=== PATIENT | female | born 1945 | race Caucasian/White ===

== ENCOUNTER 2017-05-26 10:06 | Inpatient (IN) | payer MEDICARE, OTHER ==
[2017-05-26] MEDS ORDERED: Morphine INJ* 4 MG/ML 1 ML CARPUJECT IM ONE (10:37)
--- NOTE | 2017-05-26 11:41 | RAD ---
Indication: Right femur injury. 2 views of the right femur are reviewed. There is a nondisplaced fracture through the distal shaft of the right femur. This may represent a stress riser fracture. IMPRESSION: Nondisplaced fracture of the distal diaphysis of the femur.
--- NOTE | 2017-05-26 11:47 | RAD ---
Indication: Pelvic injury. Single view of the pelvis demonstrates pelvic ring to be intact. Right femoral head and neck replacement is noted. Pelvic ring is grossly intact. IMPRESSION: Pelvic ring is grossly intact.
--- NOTE | 2017-05-26 11:50 | RAD ---
Indication: Trauma, chest injury Single view of the chest and shape no mediastinal shift. Heart is of normal size and configuration. Hyperinflated lung dillard are noted. No alveolar consolidation is noted. IMPRESSION: Hyperinflated lung dillard with chronic interstitial disease.
--- NOTE | 2017-05-26 13:02 | ED ---
Luis Manuel Bell Gabriel, scribed for Kermit Zhang MD on 05/26/17 at 1031 . Lower Extremity - HPI Summary HPI Summary: This patient is a 71 year old F [facility]IBA to [facility] with a chief complaint of right leg pain since 05/24/17. The patient rates the pain 4/10 in severity. Symptoms aggravated by movement of the RLE. Patient reports multiple bed sores. Patient denies left leg pain. Patient reports that she slipped off the side of the bed 2 days ago and hurt her knee. She has been non weight bearing on this side since december due to a broken hip. She did have it repaired but there was no sign of healing after so she had another hip surgery three weeks ago and still is not weight bearing. Patient has a history of chronic osteoporosis and an excluded superficial femoral artery. - History of Current Complaint Chief Complaint: EDExtremityLower Stated Complaint: WEAKNESS Time Seen by Provider: 05/26/17 10:24 Hx Obtained From: Patient Mechanism Of Injury: Fall From Height Of: - bed Onset of Pain: Immediate Onset/Duration: Still Present - 2 Severity Initially: Mild Severity Currently: Mild Pain Intensity: 4 Pain Scale Used: 0-10 Numeric Timing: Constant Associated Signs And Symptoms: Positive: Negative - right leg pain, Other - multiple bed sores Able to Bear Weight: No - Allergies/Home Medications Allergies/Adverse Reactions: Allergies Allergy/AdvReac Type Severity Reaction Status Date / Time No Known Allergies Allergy Verified 05/26/17 10:20 PMH/Surg Hx/FS Hx/Imm Hx Previously Healthy: No Cardiovascular History: Reports: Hx Hypertension Respiratory History: Reports: Hx Chronic Obstructive Pulmonary Disease (COPD) Psychiatric History: Reports: Hx Depression - Cancer History Cancer Type, Location and Year: Hip repair. 01/13 and 05/15 Infectious Disease History: Yes Infectious Disease History: Denies: Traveled Outside the [place] in Last 30 Days - Family History Known Family History: Positive: Hypertension - Social History Lives: [place] Alcohol Use: None Hx Substance Use: No Substance Use Type: Reports: None Hx Tobacco Use: Yes Smoking Status (MU): Former Smoker Type: Cigarettes Review of Systems Positive: Other - bed sores Positive: Other - RLE pain All Other Systems Reviewed And Are Negative: Yes Physical Exam - Summary Physical Exam Summary: Appearance: Well appearing, no pain distress Skin: warm, dry, reflects adequate perfusion Head/face: normal Eyes: EOMI, ISAIAH ENT: normal Neck: supple, non-tender Respiratory: Course breath sounds that clear with cough Cardiovascular: RRR, pulses symmetrical Abdomen: non-tender, soft Bowel: present Extremities: Right small toe is ecchymotic and there is a wound on the malleolus , Pain and effusion at the right knee with limited ability to extend. It is resting in a contracted position, there is no pain at the femur. Multiple small pressure sores on the lateral side of the right foot and small toe Right leg is warm, there is some mild redness and present dorsalis pedis pulses. Musculoskeletal: normal, strength/ROM intact Neuro: normal, sensory motor intact, A&Ox3 An EKG reveals Triage Information Reviewed: Yes Vital Signs On Initial Exam: Initial Vitals Temp Pulse Resp BP Pulse Ox 98.7 F 93 17 168/73 93 05/26/17 10:16 05/26/17 10:16 05/26/17 10:16 05/26/17 10:16 05/26/17 10:16 Vital Signs Reviewed: Yes Diagnostics - Vital Signs Vital Signs Temp Pulse Resp BP Pulse Ox 05/26/17 10:16 98.7 F 93 17 168/73 93 - Laboratory Lab Statement: Any lab studies that have been ordered have been reviewed, and results considered in the medical decision making process. - Radiology CXR Radiology Interpretation Completed By: Radiologist - Hyperinflated lung dillard with chronic interstitial disease. ED physician has reviewed this radiology report. Pelvis xray Radiology Interpretation Completed By: Radiologist - Pelvic ring is grossly intact. ED physician has reviewed this radiology report. Femus Xray Radiology Interpretation Completed By: Radiologist - Nondisplaced fracture of the distal diaphysis of the femur. ED physician has reviewed this radiology report. Re-Evaluation - Re-Evaluation First Eval Change: Improved - with pain meds. Lower Extremity Course/Dx - Course Course Of Treatment: Pt with chronic arterial insufficiency RLE and complicated post op course from hip fx (mult surgeries). Now with femur fracture from min trauma. Leg is warm but with (chronically) diminished pulses. Pressure wounds on the foot and ankle. Tx for pain. D/W ortho will accept here and pt admitted thru hospitalist. - Diagnoses Provider Diagnoses: Nondisplaced fracture of right femur, Decubitus ulcer of foot, Peripheral arterial occlusive disease - Physician Notifications Discussed Care Of Patient With: Dusty Parr Time Discussed With Above Provider: 11:52 Instructed by Provider To: Other - We discussed patient care with Dr. Nolasco and he said he will treat the patient non operatively. - Critical Care Time Critical Care Time: 30-74 min - CCT is EXCLUSIVE of separately billable procedures Discharge - Discharge Plan Condition: Fair Disposition: ADMITTED TO [facility] Referrals: Mary Carmen Yates MD [Primary Care Provider] - Consult Consult: 1237 We discussed patient care with Dr. Menard, Hospitalist and accepted the patient for admittance. The documentation as recorded by the Luis Manuel pena Gabriel accurately reflects the service I personally performed and the decisions made by me, Kermit Zhang MD.
[2017-05-26] MEDS ORDERED: Morphine INJ* 2 MG/ML 1 ML SYRINGE (TWO MG - NEW SYRINGE VERSION) IV PRN (14:25)
[2017-05-26] MEDS ORDERED: Albuterol/Ipratropium NEB.SOL* Albuterol 2.5 MG/Ipratropium 0.5 MG 3 ML INH PRN (14:25)
[2017-05-26 14:31] LABS: ABS Basophils 0 10^3/ul (0-0.2); ABS Eosinophils 0 10^3/ul (0-0.6); ABS Lymphocytes 1.4 10^3/ul (1.0-4.8); ABS Monocytes 1.1 10^3/ul (0-0.8); ABS Neutrophils 12.2 10^3/ul (1.5-7.7); ABS Nucleated RBC 0 10^3/ul; Eosinophil % 0.2 % (0-6); Hematocrit 36 % (35-47); Hemoglobin 11.5 g/dl (12.0-16.0); Lymphocyte % 9.4 % (25-47); Mean Corpuscular HGB Conc 32 g/dl (31-36); Mean Corpuscular Hemoglobin 28 pg (27-31); Mean Corpuscular Volume 88 fL (80-97); Mean Platelet Volume 8 um3 (7.4-10.4); Nucleated Red Blood Cells % 0; Platelet Count 466 10^3/ul (150-450); Red Blood Count 4.07 10^6/ul (4.0-5.4); Red Cell Distribution Width 16 % (10.5-15); White Blood Count 14.8 10^3/ul (3.5-10.8)
[2017-05-26] MEDS ORDERED: traMADol TAB* 50 MG PO SCH (15:00)
[2017-05-26] MEDS ORDERED: Ondansetron INJ* 2 MG/ML VIAL IV SCH (15:00)
[2017-05-26] MEDS ORDERED: Ondansetron INJ* 2 MG/ML VIAL IV PRN (16:19)
[2017-05-26 16:31] LABS: INR 0.98 (0.77-1.02)
--- NOTE | 2017-05-26 16:50 | RAD ---
INDICATION: Right leg swelling. COMPARISON: There are no prior studies available for comparison. TECHNIQUE: Multiple real-time, color flow and Doppler tracings of the right lower extremity were obtained. FINDINGS: The common femoral, femoral, profunda femoral and popliteal veins all demonstrate normal compressibility, augmentation with compression and phasic response with respiration. The posterior tibial and peroneal veins demonstrate normal compressibility and augmentation with compression. IMPRESSION: NO EVIDENCE FOR DEEP VENOUS THROMBOSIS.
[2017-05-26] MEDS: Morphine INJ* 2 MG/ML 1 ML SYRINGE (TWO MG - NEW SYRINGE VERSION) IV PRN ×2 (17:24→21:11)
[2017-05-26] MEDS: traMADol TAB* 50 MG PO PRN (17:43)
[2017-05-26] MEDS: Docusate CAP* 100 MG PO SCH (21:24)
[2017-05-26] MEDS: Ferrous Sulfate TAB* 325 MG PO SCH (21:24)
[2017-05-26] MEDS ORDERED: Heparin VIAL(*) 5000 UNITS/ML VIAL (FIVE THOUSAND) SUBCUT SCH (22:00)
--- NOTE | 2017-05-26 22:58 | CONS ---
CONSULTATION REPORT: DATE OF CONSULT: 05/26/17 PROVIDER: Dr. Dusty Parr. HISTORY OF PRESENT ILLNESS: Yarelis Agee is a 71-year-old female who arrived by ambulance to [facility] [place] [facility] with a chief complaint of right leg pain since falling out of bed 05/24/17. At the time of falling out of bed, her pain was not severe and did not become severe until today when she was transitioning to a seated position and experienced severe right leg pain. Movement aggravates the symptoms and lying still relieve the symptoms. At the time of her fall, she states that the bed is more narrow than the bed that she has used to. She did not experience loss of consciousness, chest pain, shortness of breath, confusion , lightheadedness, and she denies any loss of consciousness or any other injury at the time of fall. At this time, her pain is rated as 8/10 and is localized to the right upper leg without radiation. She denies any numbness or tingling down the right leg. The patient has been nonweightbearing on her right lower extremity since December 2016 due to a fall and subsequent hip fracture. She was treated first for this fracture at a hospital in [place]. She reportedly experienced hardware failure and poor healing. She therefore had a revision by Dr. Escobar out of [facility] 3 weeks ago. She has been nonweightbearing since, but the patient reports that her medical team does feel that she is healing better at this time. She is originally from [place], but due to complications of her first surgery, she has moved down to [facility] to seek out medical treatment in this town as well as to be closure to her son, who works at [employer]. The patient does have a chronic history of osteoporosis. She has no history of heart attack or stroke. She has no history of DVT or PE. She does have a history of multiple bed sores. PAST MEDICAL HISTORY: Hypertension, COPD, depression. PAST SURGICAL HISTORY: Right hip surgery in December and roughly 3 weeks ago and in 2017. ALLERGIES: No known drug allergies. SOCIAL HISTORY: The patient lives at [facility]. She does not use alcohol or drugs. She is a former smoker. REVIEW OF SYSTEMS: General: Denies fever or chills. HEENT: Denies headache, acute hearing loss or changes in vision. Cardiac: Denies chest pain or irregular beats. The patient does not have a refrigeration engineer. Respiratory: Denies shortness of breath. Has a history of COPD. Has a cough with onset today. Does not have a child center assistant. GI: Denies nausea, vomiting, diarrhea. : Denies dysuria. Musculoskeletal: Confirms right lower extremity pain. Confirms 2 previous hip surgeries on the side. Neuro: Denies numbness or tingling down the right lower extremity. Denies headache. Denies history of stroke. Skin: Confirms pressure ulcers. The patient is unsure how long she had these. Denies any acute open lesion or bruising from her fall. Hematology : Denies easy bruising or bleeding. PHYSICAL EXAM: Vitals: Temperature 98.7, pulse 104, respiratory rate 18, oxygen saturation 98, and blood pressure 152/84. Appearance: Well appearing, in no acute distress, calm and cooperative. HEENT: Normocephalic, atraumatic. Eyes: Extraocular movements are intact. Hearing is grossly normal to spoken conversation. Respiratory: Coarse lung sounds throughout lung dillard which clear with cough. The patient is coughing in the room, less so when she sits up. Cardio: S1, S2. Abdomen: Soft, nontender. Musculoskeletal: Right lower extremity, the patient's skin is intact without any bruising or open lesions of the upper thigh. She is nontender to light and gentle palpation throughout the right lower extremity. She is unable to produce range of motion of the hip or knee due to pain. Neuro: Right lower extremity dorsiflexion and plantar flexion intact. Sensation intact distally. Vascular: Capillary refill is brisk of the right lower extremity distally. Dorsalis pedis and posterior tibial pulses are 2+, radial pulse 2+ bilaterally. Skin: Ulcer of the mid posterior calf roughly 2 cm in diameter. DIAGNOSTIC STUDIES/LAB DATA: Labs: H and H 11.5 and 36, platelets 466, white count 14.8. Sodium 129, CRP 62.74. Femur x-ray, right nondisplaced fracture of the distal diaphysis of the femur. Chest x-ray, hyperinflated lung dillard with chronic interstitial disease. ASSESSMENT: Nondisplaced fracture of the distal diaphysis of the right femur. PLAN: The patient will remain nonweightbearing. Review previous surgical records which have been requested from [facility] to determine risk vs benefit of surgical vs nonsurgical treatment. JOSÉ MIGUEL [place], [place] [id number]/[facility] #: [id number] [facility] CENTERIsabel
--- NOTE | 2017-05-26 23:55 | HP ---
ADMISSION HISTORY AND PHYSICAL: DATE OF ADMISSION: PRIMARY CARE PROVIDER: Listed as Dr. Mary Carmen Yates. The patient is unable to tell me who her primary care provider is. MY ATTENDING WHILE IN THE HOSPITAL: Dr. Marcela Menard.* (DICTATED BY RICKY FRANCOIS) CHIEF COMPLAINT: Right knee pain. HISTORY OF PRESENT ILLNESS: The patient is a 71-year-old female with past medical history significant for hip fracture with initial pinning and then total hip arthroplasty revision on the right hip, rheumatoid arthritis, osteoporosis, osteoarthritis, COPD, hypertension, who presents after a fall last night at [facility] out of a bed close to the ground on to her buttocks. The patient was recently admitted to [facility] from [facility] where she was admitted after her total hip arthroplasty. The patient's hospital course was complicated by shock due to blood loss. The patient also had acute limb ischemia of her right side, which resolved with 1 unit of packed red blood cells. The patient at that time had a Doppler and a CT angiogram with runoff that showed reconstitution of her blood flow, but significant stenosis. The patient has continued to be nonweightbearing on her right leg after the surgery and for 5 weeks total and 3 more weeks from this point. The patient denies any numbness or tingling in her legs but reports spasms, which were present prior to her hip surgery. The patient has unknown back pathology most likely related to her rheumatoid arthritis per her family. The patient denies any other complaints besides 7/10 knee pain, which is decreased from 10/ 10 knee pain before pain medication. The patient is not on any these modifying antirheumatic agents for her rheumatoid arthritis. The patient has chronic wounds on her legs, which have been present since her hospitalization in December for her initial hip fracture. The patient has had recent weight loss having lost 30 pounds in the last 2 years. The patient was scheduled to see Vascular Surgery through [facility] today but was unable to go to that appointment due to being in the emergency room. There were no plans for revascularization established with Vascular Surgery when they saw her during her recent hospitalization. The patient has also had redness and swelling in her lower leg at least since her admission to [facility], it is unclear if this has gotten any worse. The patient states this is painful but it is not noticeable compared to the pain in her knee. X-ray from the emergency department showed a fracture of the distal femoral diaphysis on the right side. No other pertinent abnormalities on x-ray. The patient denies fevers, chills, nausea, vomiting, or other signs of systemic infection. PAST MEDICAL HISTORY: Hip fracture with initial pinning and then revision in December and March of this year, COPD, hypertension, osteoarthritis, depression , osteoporosis, Raynaud's phenomenon, rheumatoid arthritis, unknown back pathology, nonsurgical fractures of her hand and leg younger in life without surgical repair. PAST SURGICAL HISTORY: Hip pinning in December, total hip replacement in March of this year. MEDICATIONS: 1. Colace 200 mg p.o. daily. 2. Calcium alginate to the fifth toe wound, posterior calf wound, and left heel wound. 3. Lisinopril 10 mg p.o. daily. 4. Zoloft 50 mg p.o. daily. 5. Tylenol 500 mg p.o. q.12 hours as needed for pain. 6. Tramadol 50 mg p.o. q.6 hours as needed for pain. 7. Multivitamin 1 tab p.o. daily. 8. [place] 5/325 one tab p.o. q.4 hours as needed for pain. 9. Ferrous sulfate 325 mg p.o. twice daily. 10. Vitamin D 2000 units p.o. daily. 11. Atenolol 50 mg p.o. daily. 12. Aspirin 81 mg p.o. daily. 13. Ascorbic acid 500 mg p.o. daily. ALLERGIES: No known drug allergies. FAMILY HISTORY: The patient's father had a major heart attack at 52, the patient's brother had COPD, the patient has 2 healthy siblings, and her mother had breast cancer. SOCIAL HISTORY: The patient smoked for 50 pack years but quit recently. The patient drinks socially all her life. Denies any illicit drugs. 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 She is , has 1 kid. Her son, Ahmet, is her healthcare proxy. REVIEW OF SYSTEMS: A 14-point review of systems was reviewed and is otherwise negative except as above. PHYSICAL EXAMINATION GENERAL: The patient is a 71-year-old female, who appears stated age and sitting comfortably in the bed, in no acute distress. VITAL SIGNS: On arrival to the emergency department, temperature 98.7, pulse rate 93, respiratory rate 17, oxygen saturation 93% on room air, blood pressure 168/73. The patient's well-being examined, was found to be in the high 80s with her oxygen saturation and oxygen 2 L was placed bringing it up to the mid 90s. HEENT: Head normocephalic, atraumatic. Sclerae anicteric. No conjunctival injection. Nasal mucosa is moist. Oral mucosa is moist. No pharyngeal erythema, postnasal drip, or exudate. NECK: Supple. Nontender. No lymphadenopathy. No carotid bruits auscultated. The patient has exaggerated kyphosis of her spine. RESPIRATORY: The patient had slight rhonchi in the bilateral lung bases, diminished breath sounds throughout. No other adventitious lung sounds. Good air exchange bilaterally. CARDIAC: Regular rate and rhythm. No clicks, murmurs, gallops, or rubs. Pulses 2+ in the bilateral radial areas. Pulses 1+ in bilateral popliteal areas. Pulses 1+ in the left-sided dorsalis pedis and posterior tibialis areas. Pulses trace in the bilateral radial areas. There is edema of the right foot, 1+ pitting greater than the left. ABDOMEN: Soft, nondistended. Bowel sounds present and normoactive in all 4 quadrants. No hepatosplenomegaly. There is suprapubic tenderness. No other tenderness. GENITOURINARY: Suprapubic tenderness. No CVA tenderness. The patient's urine is dark and foul smelling. The patient is incontinent of urine. MUSCULOSKELETAL: The patient has swelling of the proximal interphalangeal joints in her hands bilaterally, which are red and warm to the touch. The patient has kyphosis as stated above. The patient has full range of motion without pain in her bilateral upper extremities and her lower extremities. 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 The patient has very limited range of motion in her right leg due to pain and contracture. The patient has bony tenderness over her distal femur and her hip. No pain with palpation over other long bones or joints. NEURO: Cranial nerves II through XII grossly intact. The patient is alert and oriented x2, being able to provide her name and the date but states she is at [facility] and cannot specify which [facility]. The patient is otherwise generally confused and difficult to carry on a conversation with. The patient has intact sensation distally and proximally in her upper and lower bilateral extremities. The patient has preserved strength in her upper extremity distally and proximally and in her left leg. Unable to test the patient's strength in her right leg due to the contracture. PSYCHIATRIC: The patient is pleasant and cooperative. SKIN: The patient's skin is generally mottled and red. The patient has an open area on her left heel which is dry, negative probe to bone and has no discharge. The patient has an open area on her lower right calf with eschar, no discharge. The patient has a larger open area more superior in her left calf, which is covered with a dry dressing, which is not removed for the exam. The patient has no other visible ulcers or rashes except for a red raised rash in the dorsum of her right foot, it does not itch, it is nontender. LABORATORY DATA: White blood cell count 14.8, hemoglobin 11.5, RDW 16, platelet count 466. Sodium 129, potassium 4.5, chloride 95, carbon dioxide 28, anion gap 6, BUN 11, creatinine 0.45, glucose 114, calcium 8.9. Total bilirubin 0.5, AST 16, ALT 18, alkaline phosphatase 188. CRP 62.74. Total protein 6.7, albumin 3.1, globulin 3.3. Triglycerides 85, cholesterol 133, LDL cholesterol 94, HDL cholesterol 55. ASSESSMENT AND PLAN/IMPRESSION: The patient is a 71-year-old female with past medical history significant for recent surgery on her hip in December and March of this year for hip pinning and then a hip replacement, who also has osteoporosis, rheumatoid arthritis, osteoarthritis, who fell out of bed last night and fractured her distal femoral diaphysis. The patient will be admitted to the hospital for IV pain medication, orthopedic consultation, and supportive care. The patient also has vasculopathy in her lower extremity with chronic wounds, which led to limb ischemia previously. She will be monitored for this while she is in the hospital. 1. Distal right-sided diaphysis fracture. Orthopedics has been consulted. The patient is in significant pain. The patient will be treated with morphine IV and her home dose of tramadol. The patient will be nonweightbearing on that leg as well. The patient will be on bedrest at this time. We will obtain a PT consult after sign off from Orthopedics, until then the patient will be on bed rest. The patient has no other fractures at this time. No signs of internal bleeding around the fracture site. 2. Peripheral arterial disease, history of critical limb ischemia. The patient has recent history of critical limb ischemia and had a CT arteriogram with runoff at [facility] prior to her discharge, which showed occlusion of the right proximal superficial femoral artery with fair reconstitution of popliteal artery and 3- vessel runoff, bilateral stenotic popliteal arteries, and complete occlusion of left proximal superficial and femoral artery with faint reconstitution of the proximal popliteal artery with minimal 3-vessel runoff. The patient will have an arterial Doppler study and an ankle brachial index to evaluate her current vascular status in her bilateral lower extremities. The patient will be continued on aspirin. The patient's LDL cholesterol is below 100. We will consider statin therapy after the patient is outside of the acute phase of her illness. 3. Redness, swelling of lower extremity, possible deep venous thrombosis. The patient will have a venous Doppler ultrasound of her right lower extremity to rule out deep venous thrombosis. The patient recently had a fall, so a D-dimer would be useless at this time. The patient will be on heparin subcu at this time for DVT prophylaxis and will be fully anticoagulated if deep venous thrombosis is found. The patient has no signs of pulmonary embolism at this time. There is a possibility this represents cellulitis due to elevated C- reactive protein, redness, and swelling. The patient has no fever. The patient has a white blood cell count, we will trend this and start antibiotics. If no deep venous thrombosis is found and the patient continues to have systemic signs of infection, we will trend CRP. 4. Hypoxia. The patient was hypoxic in the emergency department. Likely this is due to morphine for her pain control and her underlying chronic obstructive pulmonary disease. The patient will be on oxygen therapy at this time. If the patient does not improve, we will consider CTA of the chest to rule out pulmonary embolism. 5. Hypertension. The patient's most recent blood pressure is 187/86 when she arrived to the floor, all her readings have been in the 140s/60s to 160s/70s. We will monitor and increase the patient's blood pressure medication if this persists. Continue lisinopril and atenolol at this time. 6. Depression. The patient will be continued on Zoloft at this time. 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 We will consider increasing the patient's antidepressant. We will order TSH. 7. Anemia. The patient has blood loss anemia after she left the discharge from [facility] with her hemoglobin at 8.5, this has increased to 11.5 currently on ferrous sulfate 325 mg b.i.d. We will continue to monitor for acute blood loss related to her fall and fracture. Continue iron supplementation. 8. DVT prophylaxis. The patient will have heparin subcu 5000 units q.8 hours. The patient is at very high risk of DVT, but SCDs will be held at this time due to peripheral arterial disease. 9. Code status. The patient is a full code. The patient's healthcare proxy is her son, Ahmet. 10. FEN. The patient has normal creatinine and does not appear dehydrated at this time. We will hold off on fluids. The patient will have a heart-healthy diet without caffeine. 11. Disposition. The patient is made an inpatient and will be discharged back to [facility] for continued rehab when medically stable. TIME SPENT: Approximately 1 hour was spent on this admission, 30 of which was spent [id number] with the patient obtaining history and physical and discussing treatment plan. This plan has been discussed with my attending, Dr. Marcela Menard, and she is in agreement. RICKY FRANCOIS [id number]/CPS #: [id number] MTDD
[2017-05-27 00:58] LABS: Urine Appearance Turbid; Urine Blood 1+ (Negative); Urine Color Yellow; Urine Ketones Negative (Negative); Urine Protein 2+(100 mg/dL) (Negative); Urine Specific Gravity 1.012 (1.010-1.030); Urine Urobilinogen Negative (Negative)
[2017-05-27] MEDS: Morphine INJ* 2 MG/ML 1 ML SYRINGE (TWO MG - NEW SYRINGE VERSION) IV PRN (02:34)
[2017-05-27 05:47] LABS: ABS Basophils 0.1 10^3/ul (0-0.2); ABS Eosinophils 0.1 10^3/ul (0-0.6); ABS Lymphocytes 1.4 10^3/ul (1.0-4.8); ABS Monocytes 1.1 10^3/ul (0-0.8); ABS Neutrophils 9.1 10^3/ul (1.5-7.7); ABS Nucleated RBC 0.01 10^3/ul; Eosinophil % 0.6 % (0-6); Hematocrit 33 % (35-47); Hemoglobin 10.9 g/dl (12.0-16.0); Lymphocyte % 11.9 % (25-47); Mean Corpuscular HGB Conc 33 g/dl (31-36); Mean Corpuscular Hemoglobin 29 pg (27-31); Mean Corpuscular Volume 87 fL (80-97); Mean Platelet Volume 8 um3 (7.4-10.4); Nucleated Red Blood Cells % 0.1; Platelet Count 381 10^3/ul (150-450); Red Blood Count 3.81 10^6/ul (4.0-5.4); Red Cell Distribution Width 16 % (10.5-15); White Blood Count 11.6 10^3/ul (3.5-10.8)
[2017-05-27 06:00] LABS: EGFR Non-African American 140.6 (>60)
[2017-05-27] MEDS: Heparin VIAL(*) 5000 UNITS/ML VIAL (FIVE THOUSAND) SUBCUT SCH ×3 (06:28→22:38)
[2017-05-27] MEDS ORDERED: Magnesium Sulfate IV* 3 GM in NS 0.9% 100 ML* 100 ML IVPB ONE (07:00)
[2017-05-27] MEDS ORDERED: Magnesium Sulfate 2 GM IV IVPB ONE (08:00)
[2017-05-27] MEDS ORDERED: Sertraline* 50 MG TAB PO SCH (09:00)
[2017-05-27] MEDS ORDERED: Magnesium Sulfate 1 GM IV* 1 GM/100 ML BAG IV ONE (09:00)
[2017-05-27] MEDS ORDERED: Sulfamethox/Trimethoprim DS 800/160* TAB PO SCH (09:00)
[2017-05-27] MEDS ORDERED: DOXYcycline CAP(*) 100 MG PO SCH (09:00)
[2017-05-27] MEDS: Cephalexin CAP* 250 MG PO SCH ×2 (09:45→12:43)
[2017-05-27] MEDS: Cholecalciferol TAB* 1000 UNITS PO SCH (09:46)
[2017-05-27] MEDS: Ferrous Sulfate TAB* 325 MG PO SCH ×2 (09:46→20:42)
[2017-05-27] MEDS: Lisinopril TAB* 10 MG PO SCH (09:46)
[2017-05-27] MEDS: traMADol TAB* 50 MG PO PRN (09:46)
[2017-05-27] MEDS: Aspirin EC Low Dose* 81 MG TAB.EC PO SCH (09:46)
[2017-05-27] MEDS: Ascorbic Acid TAB* 500 MG PO SCH (09:47)
[2017-05-27] MEDS: Atenolol TAB* 50 MG PO SCH (09:47)
[2017-05-27] MEDS: Diazepam TAB(NF) 2 MG TAB - use 2.5 of 5 mg tab autosub PO PRN ×2 (12:43→20:43)
--- NOTE | 2017-05-27 13:35 | PN ---
Progress Note - Progress Note Date of Service: 05/27/17 SOAP: Subjective: 71 y/o female with non-displaced fracture of distal femur. Patient course complicated by NWB R LE due to hip fracture with hardware failure s/p revision ~ 3 weeks ago. Patient pain controlled largely, c/o muscle spasms. VSS afebrile overnight. Objective: General- Well appearing, NAD AO, resting in bed MSK- L leg without edema, erythema. R LE- hyperpigmentation at ankle, + superficial skin breakdown medial/ posterior calf/ ankle with bleeding noted, no calf tenderness, + DF/PF. PT 2+, non-tender posterior knee, tenderness over lateral mal to mid distal thigh, no ecchymosis, induration noted. large healed incision over L hip. knee at flexion to 90, hip flexed to 60, able to extend hip to 30, knee to 30 with gentle traction. Vital Signs Temp 97.8 F 05/27/17 11:37 Pulse 71 05/27/17 11:37 Resp 16 05/27/17 12:43 BP 122/57 05/27/17 11:37 Pulse Ox 90 05/27/17 11:37 Intake & Output 05/26/17 05/27/17 05/27/17 18:59 06:59 18:59 Intake Total 250 138 Balance 250 138 Weight 49.895 kg Intake: IVPB 138 Magnesium 138 Oral 250 0 Other: Estimated Void Small Large # Bowel Movements 0 # Voids 1 Assessment: 71 y/o female with non-displaced fracture of distal femur, DOI 05/25. Plan: - Discussed case with Dr. Parr who saw patient this AM- knee immoblizer up to groin to help stablize leg with transfers, movement. May remove for bathing , at rest, help with prevent displacing. Frequent skin checks. If continued pain, possible surgical ORIF, remain non-op currently however. Flexeril given for muscle relaxer, wounds to be dressed and stockinette placed prior to brace. - Continue hospitalists input including work up for possible revasc, keflex for erythema - UTI- bactrim Active Medications Generic Name Dose Route Start Last Admin Trade Name Freq PRN Reason Stop Dose Admin Acetaminophen 650 mg 05/26/17 14:25 Tylenol Tab* PO Q6H PRN PAIN Albuterol/Ipratropium 1 neb 05/26/17 14:25 Duoneb (Albuterol 2.5 Mg/Ipratropium 0.5 Mg) INH Q6H PRN SOB/WHEEZING Ascorbic Acid 500 mg 05/27/17 09:00 05/27/17 09:47 Vitamin C Tab* PO 500 mg DAILY REA Administration Aspirin 81 mg 05/27/17 09:00 05/27/17 09:46 Aspirin Ec Low Dose* PO 81 mg DAILY REA Administration Atenolol 50 mg 05/27/17 09:00 05/27/17 09:47 Tenormin Tab* PO 50 mg DAILY REA Administration Cephalexin HCl 250 mg 05/27/17 09:00 05/27/17 12:43 Keflex Cap* PO 250 mg QID REA Administration Cholecalciferol 2,000 units 05/27/17 09:00 05/27/17 09:46 Vitamin D Tab* PO 2,000 units DAILY REA Administration Collagenase 1 applic 05/27/17 13:00 Santyl 250 Mg/Gm Oint* TOPICAL .[facility] Diazepam 2 mg 05/27/17 11:49 05/27/17 12:43 Valium Tab(*) PO 2 mg Q8H PRN Administration muscle spasm Docusate Sodium 200 mg 05/26/17 21:00 05/26/17 21:24 Colace Cap* PO 200 mg BEDTIME REA Administration Ferrous Sulfate 325 mg 05/26/17 21:00 05/27/17 09:46 Ferrous Sulfate Tab* PO 325 mg BID REA Administration Heparin Sodium (Porcine) 5,000 units 05/26/17 22:19 05/27/17 06:28 Heparin Vial(*) SUBCUT 5,000 units Q8HR REA Administration Lisinopril 20 mg 05/27/17 09:00 05/27/17 09:46 Prinivil Tab* PO 20 mg DAILY REA Administration Morphine Sulfate 2 mg 05/26/17 16:18 05/27/17 02:34 Morphine Inj (Syringe)* IV 2 mg Q2H PRN Administration PAIN - MODERATE TO SEVERE Ondansetron HCl 4 mg 05/26/17 16:19 Zofran Inj* IV Q4H PRN NAUSEA Sertraline HCl 50 mg 05/27/17 09:00 05/27/17 09:47 Zoloft* PO 50 mg DAILY REA Administration Tramadol HCl 50 mg 05/26/17 16:19 05/27/17 09:46 Ultram* PO 50 mg Q6H PRN Administration PAIN - MILD TO MODERATE Trimethoprim/Sulfamethoxazole 1 tab 05/27/17 09:00 05/27/17 09:46 Bactrim Ds 800/160 Tab* PO 1 tab BID REA Administration
[2017-05-27] MEDS: Collagenase 250 MG/GM OINT* 30 GM TOPICAL SCH (13:57)
--- NOTE | 2017-05-27 15:15 | CONSULT ---
Consult Consult: Date of Service: 05/27/17 Reason for Consultation: Critical Limb Ischemia (Focused) HPI: The patient is a poor historian and therefore much of the history is derived from prior notes and report provided by the patent's nurse. Amanda Bee is a 71-year-old female who arrived by ambulance to [facility] with a chief complaint of right leg pain since falling out of bed 05/24/17. The patient has complaints of right leg pain The patient has been nonweightbearing on her right lower extremity since December 2016 due to a fall and subsequent hip fracture. She underwent ORIF right hip originally [facility] and then underwent right hip revision in [place]. She has been non-weightbearing since. She is originally from [place], but due to complications of her first surgery, she has moved down to [facility] to seek out medical treatment in this town as well as to be closure to her son, who works at [employer]. Interventional Radiology was consulted regarding a mummified right small toe and bilateral heel wounds. The patient cannot tell me how long she has had the ulcers, but states she did not have them before her hip fracture and subsequent surgeries. She denies any chronic leg pain or walking difficulties prior to her hip fractures. PAST MEDICAL HISTORY: Hypertension, COPD, depression. PAST SURGICAL HISTORY: Right hip surgery in December and roughly 3 weeks ago and in 2016. ALLERGIES: No known drug allergies. SOCIAL HISTORY: The patient lives at [facility]. She does not use alcohol or drugs. She is a former smoker. REVIEW OF SYSTEMS: General: Denies fever or chills. HEENT: Denies headache, acute hearing loss or changes in vision. Cardiac: Denies chest pain or irregular beats. The patient does not have a director security risk management. Respiratory: Denies shortness of breath. GI: Denies nausea, vomiting, diarrhea. : Denies dysuria. Musculoskeletal: Right leg pain. Neuro: Denies numbness or tingling down the right lower extremity. Denies headache. Denies history of stroke. Skin: Confirms pressure ulcers. The patient is unsure how long she had these. Denies any acute open lesion or bruising from her fall. Hematology: Denies easy bruising or bleeding. PHYSICAL EXAM: Selected Entries 05/27/17 05/27/17 11:37 14:35 Temperature 97.8 F Temperature Oral Source Pulse Rate 71 Respiratory 16 Rate Blood Pressure 122/57 (mmHg) Blood Pressure 78 Mean O2 Sat by Pulse 90 Oximetry Patient on Room Yes Air Appearance: NAD, AAO x 3, responsive to questioning with delay HEENT: Normocephalic, atraumatic. Eyes: Extraocular movements are intact. Hearing is grossly normal to spoken conversation. Respiratory: CTAB Cardio: RRR, S1, S2. Abdomen: Soft, nontender. 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 No bruit heard over belly or groins. 1+ pulse at left pop. Pain prevented palpation of right pop. Cannot palpate bilateral pedal pulses. Skin: Mummified right small toe with malodorous smell. Wounds partially visualized at bilateral heels. Neuro: Sen[place] intact to light touch bilateral feet. Motor function grossly intact. Laboratory Tests 05/26/17 05/26/17 05/27/17 14:05 14:05 05:26 WBC 14.8 H 11.6 H Hgb 11.5 L 10.9 L Hct 36 33 L INR (Anticoag Therapy) 0.98 APTT 30.4 BUN Creatinine Est GFR (Non-Af Amer) BUN/Creatinine Ratio 05/27/17 05:26 WBC Hgb Hct INR (Anticoag Therapy) APTT BUN 14 Creatinine 0.44 L Est GFR (Non-Af Amer) 140.6 BUN/Creatinine Ratio 31.8 H IMAGING: CTA w/ runoff from [facility] dated 04/27/17 reports: 1. B/L SFA occlusion with popliteal artery reconstitution. 2. "Faint" infrapopliteal artery filling. Patient Name: AMANDA BEE Medical Record#: [id number] Ordering Physician: Kemrit Zhang MD Acct.#: [id number] : 1945 Age: 71 Sex: F Location: EMERGENCY DEPARTMENT Exam Date: 05/26/17 1037 ADM Status: REG ER Order Information: PELVIS 1-2 VWS Accession Number: [id number] CPT: 27823 Indication: Pelvic injury. Single view of the pelvis demonstrates pelvic ring to be intact. Right femoral head and neck replacement is noted. Pelvic ring is grossly intact. IMPRESSION: Pelvic ring is grossly intact. <Electronically signed by Luiza Walker MD in OV> 05/26/17 1144 Dictated By: Luiza Walker MD Dictated Date/Time: 05/26/17 1144 Transcribed Date/Time: 05/26/17 1143 Copy to: Patient Name: AMANDA BEE Medical Record#: [id number] Ordering Physician: Kermit Zhang MD Acct.#: [id number] : 1945 Age: 71 Sex: F Location: EMERGENCY DEPARTMENT Exam Date: 05/26/17 1037 ADM Status: REG ER Order Information: FEMUR RIGHT Accession Number: [id number] CPT: 98959 Indication: Right femur injury. 2 views of the right femur are reviewed. There is a nondisplaced fracture through the distal shaft of the right femur. This may represent a stress riser fracture. IMPRESSION: Nondisplaced fracture of the distal diaphysis of the femur. <Electronically signed by Luiza Walker MD in OV> 05/26/17 1138 Dictated By: Luiza Walker MD Dictated Date/Time: 05/26/17 1138 Transcribed Date/Time: 05/26/17 1136 Impression: 71 YOF with h/o right hip LATISHA December 2016 complicated by necessity for revision and subsequent femoral shaft fracture following a fall. Currently she has pressure sores over both heels and a mummified left small toe. The heel sores appear secondary to pressure ulcers which may be not directly related to arterial insufficiency while the left small toe necrosis could be due to embolism after prolonged immobility. The [facility] CTA describes bilateral SFA occlusion so healing of the foot wounds will be diminished without in line arterial flow. Plan: 1. Awaiting bedside BRANDIE. 2. Request submitted for disk with CTA w/ runoff from [facility] to be downloaded onto our PACS for my review. 3. Good bed sore preventative care. 4. The patient's limited walking ability will limit durability if endovascular revascularization is undertaken. 5. Recommend continue anti-thrombotic and anti-platelet prophylaxis including subq heparin and ASA 81 mg daily. 6. Recommend also SCDs. 7. Salvage of the right small toe appears unlikely so best case scenario will be limiting amputation to just that toe and/or partial forefoot.
--- NOTE | 2017-05-27 15:21 | PN ---
Subjective Date of Service: 05/27/17 Interval History: Patient states that her pain is about a 4/10. Patient is A/Ox3 today. Patient denies SOB today and is off oxygen. Patient denies other complaint. Patient having muscle spasms in leg which is interfering with BRANDIE assessment. Patient denies F/C, N/V, Abdominal pain, Dizziness, Dyuria, Constipation, Diarrhea, Numbness or tingling in right leg, or other pain. Family History: Unchanged from Admission Social History: Unchanged from Admission Past Medical History: Unchanged from Admission Objective Active Medications: Acetaminophen (Tylenol Tab*) 650 mg PO Q6H PRN PRN Reason: PAIN Albuterol/Ipratropium (Duoneb (Albuterol 2.5 Mg/Ipratropium 0.5 Mg)) 1 neb INH Q6H PRN PRN Reason: SOB/WHEEZING Ascorbic Acid (Vitamin C Tab*) 500 mg PO DAILY [facility] Last Admin: 05/27/17 09:47 Dose: 500 mg Aspirin (Aspirin Ec Low Dose*) 81 mg PO DAILY [facility] Last Admin: 05/27/17 09:46 Dose: 81 mg Atenolol (Tenormin Tab*) 50 mg PO DAILY [facility] Last Admin: 05/27/17 09:47 Dose: 50 mg Cephalexin HCl (Keflex Cap*) 250 mg PO QID [facility] Last Admin: 05/27/17 12:43 Dose: 250 mg Cholecalciferol (Vitamin D Tab*) 2,000 units PO DAILY [facility] Last Admin: 05/27/17 09:46 Dose: 2,000 units Collagenase (Santyl 250 Mg/Gm Oint*) 1 applic TOPICAL .SEE INSTRUCTIONS [facility] Last Admin: 05/27/17 13:57 Dose: 1 applic Diazepam (Valium Tab(*)) 2 mg PO Q8H PRN PRN Reason: muscle spasm Last Admin: 05/27/17 12:43 Dose: 2 mg Docusate Sodium (Colace Cap*) 200 mg PO BEDTIME [facility] Last Admin: 05/26/17 21:24 Dose: 200 mg Ferrous Sulfate (Ferrous Sulfate Tab*) 325 mg PO BID [facility] Last Admin: 05/27/17 09:46 Dose: 325 mg Heparin Sodium (Porcine) (Heparin Vial(*)) 5,000 units SUBCUT Q8HR [facility] Last Admin: 05/27/17 13:56 Dose: 5,000 units Lisinopril (Prinivil Tab*) 20 mg PO DAILY [facility] Last Admin: 05/27/17 09:46 Dose: 20 mg Morphine Sulfate (Morphine Inj (Syringe)*) 2 mg IV Q2H PRN PRN Reason: PAIN - MODERATE TO SEVERE Last Admin: 05/27/17 02:34 Dose: 2 mg Ondansetron HCl (Zofran Inj*) 4 mg IV Q4H PRN PRN Reason: NAUSEA Sertraline HCl (Zoloft*) 50 mg PO DAILY [facility] Last Admin: 05/27/17 09:47 Dose: 50 mg Tramadol HCl (Ultram*) 50 mg PO Q6H PRN PRN Reason: PAIN - MILD TO MODERATE Last Admin: 05/27/17 09:46 Dose: 50 mg Trimethoprim/Sulfamethoxazole (Bactrim Ds 800/160 Tab*) 1 tab PO BID [facility] Last Admin: 05/27/17 09:46 Dose: 1 tab Vital Signs - 8 hr 05/27/17 05/27/17 05/27/17 07:22 07:35 09:46 Temperature 97.8 F Pulse Rate 94 Respiratory 17 16 16 Rate Blood Pressure 148/59 (mmHg) O2 Sat by Pulse 91 Oximetry 05/27/17 05/27/17 05/27/17 11:37 12:40 12:43 Temperature 97.8 F Pulse Rate 71 Respiratory 17 16 16 Rate Blood Pressure 122/57 (mmHg) O2 Sat by Pulse 90 Oximetry 05/27/17 14:35 Temperature Pulse Rate Respiratory 16 Rate Blood Pressure (mmHg) O2 Sat by Pulse Oximetry Oxygen Devices in Use Now: None Appearance: Patient is a 71yo female who appears stated age and is sitting in the bed in [facility]. Eyes: No Scleral Icterus, PERRLA Ears/Nose/Mouth/Throat: NL Teeth, Lips, Gums, Clear Oropharnyx, Mucous Membranes Moist Neck: NL Appearance and Movements; NL JVP, Trachea Midline Respiratory: Symmetrical Chest Expansion and Respiratory Effort, Clear to Auscultation, - - Diminished throughout. Cardiovascular: NL Sounds; No Murmurs; No JVD, RRR, No Edema Abdominal: NL Sounds; No Tenderness; No Distention, No Hepatosplenomegaly Lymphatic: No Cervical Adenopathy Extremities: No Clubbing, Cyanosis Skin: No Nodules or Sclerosis, - - Dry ulcer on left and right heels. Dry ulcer on posterior right calf. Eschar and foul smell over the right fifth toe. Healing incision on R hip with small areas of scabbing. Small [id number] stage 2 pressure ulcer on left buttock. Neurological: Alert and Oriented x 3, - - Contracted on right LE, 4/5 strength throughout otherwise. Result Diagrams: 05/27/17 05:26 05/27/17 05:26 Microbiology and Other Data: Microbiology 05/26/17 18:10 Nasal Screen MRSA (PCR)(EMMY) - Final Nasal Mrsa Positive Assess/Plan/Problems-Billing Assessment: Patient is a 71yo female with a PMH significant for PAD, Right Hip fracture with surgery x2, Depression, RA, Osteoporosis, and Raynaud's phenomenon who presents with non-displaced distal right femur fracture. Patient also has chronic non-healing wounds of the lower extremities and probable osteomyelitis of the right 5th toe. - Patient Problems (1) Closed fracture of right distal femur Current Visit: Yes Status: Acute Code(s): S72.401A - UNSP FRACTURE OF LOWER END OF RIGHT FEMUR, INIT FOR CLOS FX SNOMED Code(s): 390583296 Comment: Appreciate Ortho consult. Non-Displaced fracture of distal right femur due to fall. Patient's pain controlled at rest on Morphine, Tramadol and Tylenol. Non- Operative management at this time with knee immobilizer. Will consider surgery if unable to control pain. (2) Peripheral arterial disease Current Visit: Yes Status: Acute Code(s): I73.9 - PERIPHERAL VASCULAR DISEASE, UNSPECIFIED SNOMED Code(s): 718634643 Comment: Appreciate Interventional Radiaology input. Patient's most recent hip operation complicated by acute limb ischemia in the setting of hypotension and Norepinephrine use. CTA with Runoff and Arterial Doppler showed B/L SFA occlusion with slight popliteal reconstitution. Given low mobility, unlikely any reprofusion surgery would yeild positive results, however, chronic wounds unlikely to heal adequately without adequate arterial flow. (3) Decubitus ulcer Current Visit: Yes Status: Acute Code(s): L89.90 - PRESSURE ULCER OF UNSPECIFIED SITE, UNSPECIFIED STAGE SNOMED Code(s): 624645584 Comment: Appreciate wound care consult. Multiple wounds on both legs, right worse than left with gangrenous toe and probable underlying osteomyelitis. Dressed with Santyl and Vaseline Gauze. Blood cultures ordered, Appreciate ID consultation, Switched ABX to Ceftriaxone and Flagyl. Patient not septic at this time. (4) Osteomyelitis Current Visit: Yes Status: Acute Code(s): M86.9 - OSTEOMYELITIS, UNSPECIFIED SNOMED Code(s): 44210396 Comment: Presumed, due to positive probe to bone and foul smell from right 5th toe. Continue Ceftriaxone and Flagyl. Appreciate Ortho and IR input, will likely no heal and need amputation. (5) Urinary tract infection Current Visit: Yes Status: Acute Comment: Patient has grossly positive urinalysis with culture pending. Should be covered by ceftriaxone, will adjust antibiotics based on susceptibilities. (6) Depression Current Visit: Yes Status: Acute Code(s): F32.9 - MAJOR DEPRESSIVE DISORDER , SINGLE EPISODE, UNSPECIFIED SNOMED Code(s): 65031514 Comment: Patient has flat affect and dementia, Increase Zoloft. (7) Osteoporosis Current Visit: Yes Status: Acute Code(s): M81.0 - AGE-RELATED OSTEOPOROSIS W /O CURRENT PATHOLOGICAL FRACTURE SNOMED Code(s): 52549842 Comment: Patient has a history of osteoporosis with multiple fractures. Consider outpatient DEXA and medication treatment. Continue Vitamin D. (8) Rheumatoid arthritis Current Visit: Yes Status: Acute Code(s): M06.9 - RHEUMATOID ARTHRITIS, UNSPECIFIED SNOMED Code(s): 74075261 Comment: Patient has elevated inflammatory markers, likely due to infection. Patient has never been on a DMARD to her or her Family's recollection. Would recommend F/U with Rheumatology outpatient. (9) HTN (hypertension) Current Visit: Yes Status: Acute Code(s): I10 - ESSENTIAL (PRIMARY) HYPERTENSION SNOMED Code(s): 48761244 Comment: Normotensive, Continue atenolol and Lisinopril. (10) DVT prophylaxis Current Visit: Yes Status: Acute Code(s): GTD3607 - SNOMED Code(s): 975392594 Comment: SCDs and Heparin SubQ US negative for DVT. (11) Full code status Current Visit: Yes Status: Acute Code(s): Z78.9 - OTHER SPECIFIED HEALTH STATUS SNOMED Code(s): 336517139 Status and Disposition: Patient is admitted inpatient, will return to [facility] when medically able.
--- NOTE | 2017-05-27 16:24 | RAD ---
INDICATION: Multiple right foot wounds COMPARISON: None. TECHNIQUE: Ankle-brachial indices and Doppler tracings were obtained of the lower extremities bilaterally.. Volume pulse recordings were acquired at the bilateral ankles. REPORT: Ankle-brachial indices: Right: Value (SBP) Index Brachial: 101 Posterior tibialis: 36 0.34 Dorsalis pedis: 35 0.33 Left: Value (SBP) Index Brachial: 107 Posterior tibialis: 65 0.61 Dorsalis pedis: 48 0.45 Doppler waveforms (acquired at rest): In the interrogated lower extremity arteries, Doppler waveforms are monophasic in all distributions. Volume pulse recordings (acquired at rest): 3 mm at the right ankle and 21 mm at the left ankle represents a significant gradient. IMPRESSION: Wrist pain values acquired at the bilateral ankles more severely affecting the right than the left. Values are consistent with report of SFA occlusion on the prior CTA.
[2017-05-27] MEDS: Atorvastatin* 20 MG TAB PO SCH (17:00)
[2017-05-27] MEDS: cefTRIAXone(*) 1 GM in NS 0.9% 50 ML* 50 ML IVPB SCH (17:00)
[2017-05-27] MEDS: metroNIDAZOLE TAB* 250 MG PO SCH (20:43)
[2017-05-27] MEDS: Docusate CAP* 100 MG PO SCH (20:43)
[2017-05-28] MEDS: traMADol TAB* 50 MG PO PRN ×3 (05:25→20:51)
[2017-05-28] MEDS: Heparin VIAL(*) 5000 UNITS/ML VIAL (FIVE THOUSAND) SUBCUT SCH ×3 (05:32→20:53)
[2017-05-28 05:36] LABS: ABS Basophils 0.1 10^3/ul (0-0.2); ABS Eosinophils 0 10^3/ul (0-0.6); ABS Lymphocytes 1.4 10^3/ul (1.0-4.8); ABS Monocytes 1.2 10^3/ul (0-0.8); ABS Neutrophils 10.9 10^3/ul (1.5-7.7); ABS Nucleated RBC 0.01 10^3/ul; Eosinophil % 0.3 % (0-6); Hematocrit 34 % (35-47); Lymphocyte % 10.1 % (25-47); Mean Corpuscular HGB Conc 32 g/dl (31-36); Mean Corpuscular Hemoglobin 28 pg (27-31); Mean Corpuscular Volume 88 fL (80-97); Mean Platelet Volume 8 um3 (7.4-10.4); Nucleated Red Blood Cells % 0; Platelet Count 400 10^3/ul (150-450); Red Cell Distribution Width 16 % (10.5-15); White Blood Count 13.7 10^3/ul (3.5-10.8)
[2017-05-28 05:56] LABS: EGFR Non-African American 100.2 (>60)
--- NOTE | 2017-05-28 08:32 | PN ---
Progress Note - Progress Note Date of Service: 05/28/17 SOAP: Subjective: patient resting in bed; no complaints of pain at this time, but says has severe pain when she moves Objective: Vital Signs Temp Pulse Resp BP Pulse Ox 97.4 F 73 18 113/53 99 05/28/17 07:17 05/28/17 07:17 05/28/17 07:17 05/28/17 07:17 05/28/17 07:17 Laboratory Last Values WBC 13.7 10^3/ul (3.5-10.8) H 05/28/17 05:05 RBC 3.90 10^6/ul (4.0-5.4) L 05/28/17 05:05 Hgb 11.0 g/dl (12.0-16.0) L 05/28/17 05:05 Hct 34 % (35-47) L 05/28/17 05:05 MCV 88 fL (80-97) 05/28/17 05:05 MCH 28 pg (27-31) 05/28/17 05:05 MCHC 32 g/dl (31-36) 05/28/17 05:05 RDW 16 % (10.5-15) H 05/28/17 05:05 Plt Count 400 10^3/ul (150-450) 05/28/17 05:05 MPV 8 um3 (7.4-10.4) 05/28/17 05:05 Neut % (Auto) 80.1 % (38-83) 05/28/17 05:05 Lymph % (Auto) 10.1 % (25-47) L 05/28/17 05:05 Bradley % (Auto) 9.1 % (1-9) H 05/28/17 05:05 Eos % (Auto) 0.3 % (0-6) 05/28/17 05:05 Baso % (Auto) 0.4 % (0-2) 05/28/17 05:05 Absolute Neuts (auto) 10.9 10^3/ul (1.5-7.7) H 05/28/17 05:05 Absolute Lymphs (auto) 1.4 10^3/ul (1.0-4.8) 05/28/17 05:05 Absolute Monos (auto) 1.2 10^3/ul (0-0.8) H 05/28/17 05:05 Absolute Eos (auto) 0 10^3/ul (0-0.6) 05/28/17 05:05 Absolute Basos (auto) 0.1 10^3/ul (0-0.2) 05/28/17 05:05 Absolute Nucleated RBC 0.01 10^3/ul 05/28/17 05:05 Nucleated RBC % 0 05/28/17 05:05 ESR 38 mm/Hr (0-40) 05/26/17 14:05 INR (Anticoag Therapy) 0.98 (0.77-1.02) 05/26/17 14:05 APTT 30.4 seconds (26.0-36.3) 05/26/17 14:05 Sodium 130 mmol/L (133-145) L 05/28/17 05:05 Potassium 4.0 mmol/L (3.5-5.0) 05/28/17 05:05 Chloride 96 mmol/L (101-111) L 05/28/17 05:05 Carbon Dioxide 28 mmol/L (22-32) 05/28/17 05:05 Anion Gap 6 mmol/L (2-11) 05/28/17 05:05 BUN 19 mg/dL (6-24) 05/28/17 05:05 Creatinine 0.59 mg/dL (0.51-0.95) 05/28/17 05:05 Est GFR ( Amer) 128.9 (>60) 05/28/17 05:05 Est GFR (Non-Af Amer) 100.2 (>60) 05/28/17 05:05 BUN/Creatinine Ratio 32.2 (8-20) H 05/28/17 05:05 Glucose 121 mg/dL (70-100) H 05/28/17 05:05 Hemoglobin A1c 4.8 % (4.0-5.6) 05/26/17 14:05 Calcium 8.9 mg/dL (8.6-10.3) 05/28/17 05:05 Magnesium 1.9 mg/dL (1.9-2.7) 05/28/17 05:05 Total Bilirubin 0.50 mg/dL (0.2-1.0) 05/26/17 14:05 AST 16 U/L (13-39) 05/26/17 14:05 ALT 18 U/L (7-52) 05/26/17 14:05 Alkaline Phosphatase 188 U/L (34-104) H 05/26/17 14:05 C-Reactive Protein 130.07 mg/L (< 5.00) H 05/28/17 05:05 Total Protein 6.4 g/dL (6.4-8.9) 05/26/17 14:05 Albumin 3.1 g/dL (3.2-5.2) L 05/26/17 14:05 Globulin 3.3 g/dL (2-4) 05/26/17 14:05 Albumin/Globulin Ratio 0.9 (1-3) L 05/26/17 14:05 Triglycerides 85 mg/dL 05/26/17 14:05 Cholesterol 166 mg/dL 05/26/17 14:05 LDL Cholesterol 94 mg/dL 05/26/17 14:05 HDL Cholesterol 55.0 mg/dL 05/26/17 14:05 TSH 1.73 mcIU/mL (0.34-5.60) 05/26/17 14:05 Urine Color Yellow 05/27/17 00:00 Urine Appearance Turbid 05/27/17 00:00 Urine pH 6.0 (5-9) 05/27/17 00:00 Ur Specific [place] 1.012 (1.010-1.030) 05/27/17 00:00 Urine Protein 2+(100 mg/dl) (Negative) H 05/27/17 00:00 Urine Ketones Negative (Negative) 05/27/17 00:00 Urine Blood 1+ (Negative) H 05/27/17 00:00 Urine Nitrate Positive (Negative) H 05/27/17 00:00 Urine Bilirubin Negative (Negative) 05/27/17 00:00 Urine Urobilinogen Negative (Negative) 05/27/17 00:00 Ur Leukocyte Esterase 2+ (Negative) H 05/27/17 00:00 Urine WBC (Auto) 3+(>20/hpf) (Absent) H 05/27/17 00:00 Urine RBC (Auto) 3+(>10/hpf) (Absent) H 05/27/17 00:00 Urine Bacteria 2+ (Absent) H 05/27/17 00:00 Urine Glucose Negative (Negative) 05/27/17 00:00 Urine Ascorbic Acid * (Negative) H 05/27/17 00:00 PE: NVI Assessment: 71 yo with a non-displaced fracture of distal femur Plan: 1) Continue Heparin for DVT prophylaxis 2) NWB RLE 3) Hospitalist co-managing 4) immobilizer on at all times 5) Dr. Josue consulted for possible toe infection; will follow
[2017-05-28] MEDS: Sertraline* 100 MG TAB PO SCH (09:57)
[2017-05-28] MEDS: metroNIDAZOLE TAB* 250 MG PO SCH ×2 (09:57→20:50)
[2017-05-28] MEDS: Lisinopril TAB* 10 MG PO SCH (09:59)
[2017-05-28] MEDS: Cholecalciferol TAB* 1000 UNITS PO SCH (10:00)
[2017-05-28] MEDS: Atenolol TAB* 50 MG PO SCH (10:00)
[2017-05-28] MEDS: Ascorbic Acid TAB* 500 MG PO SCH (10:01)
[2017-05-28] MEDS: Aspirin EC Low Dose* 81 MG TAB.EC PO SCH (10:01)
[2017-05-28] MEDS: Ferrous Sulfate TAB* 325 MG PO SCH ×2 (10:01→20:50)
[2017-05-28] MEDS: Acetaminophen TAB* 325 MG PO PRN ×2 (10:02→23:58)
--- NOTE | 2017-05-28 10:50 | PN ---
Subjective Date of Service: 05/28/17 Interval History: Asking to be repositioned to help pain in right leg. Last BM yesterday. WBC slightly up to 13.7 (abx had been changed to CFTX, flagyl) Denies dysuria. got tramadol 50mg, has not been using morphine IV prns. Pain level 4-6. Family History: Unchanged from Admission Social History: Unchanged from Admission Past Medical History: Unchanged from Admission Objective Active Medications: Acetaminophen (Tylenol Tab*) 650 mg PO Q6H PRN PRN Reason: PAIN Last Admin: 05/28/17 10:02 Dose: 650 mg Albuterol/Ipratropium (Duoneb (Albuterol 2.5 Mg/Ipratropium 0.5 Mg)) 1 neb INH Q6H PRN PRN Reason: SOB/WHEEZING Ascorbic Acid (Vitamin C Tab*) 500 mg PO DAILY [facility] Last Admin: 05/28/17 10:01 Dose: 500 mg Aspirin (Aspirin Ec Low Dose*) 81 mg PO DAILY [facility] Last Admin: 05/28/17 10:01 Dose: 81 mg Atenolol (Tenormin Tab*) 50 mg PO DAILY [facility] Last Admin: 05/28/17 10:00 Dose: 50 mg Atorvastatin Calcium (Lipitor*) 20 mg PO 1700 [facility] Last Admin: 05/27/17 17:00 Dose: 20 mg Cholecalciferol (Vitamin D Tab*) 2,000 units PO DAILY [facility] Last Admin: 05/28/17 10:00 Dose: 2,000 units Collagenase (Santyl 250 Mg/Gm Oint*) 1 applic TOPICAL .SEE INSTRUCTIONS [facility] Last Admin: 05/27/17 13:57 Dose: 1 applic Diazepam (Valium Tab(*)) 2 mg PO Q8H PRN PRN Reason: muscle spasm Last Admin: 05/27/17 20:43 Dose: 2 mg Docusate Sodium (Colace Cap*) 200 mg PO BEDTIME [facility] Last Admin: 05/27/17 20:43 Dose: 200 mg Ferrous Sulfate (Ferrous Sulfate Tab*) 325 mg PO BID [facility] Last Admin: 05/28/17 10:01 Dose: 325 mg Heparin Sodium (Porcine) (Heparin Vial(*)) 5,000 units SUBCUT Q8HR [facility] Ceftriaxone Sodium 1 gm/ (Sodium Chloride) 50 mls @ 200 mls/hr IVPB Q24H [facility] Last Admin: 05/27/17 17:00 Dose: 200 mls/hr Lisinopril (Prinivil Tab*) 20 mg PO DAILY [facility] Last Admin: 05/28/17 09:59 Dose: 20 mg Metronidazole (Flagyl Tab*) 500 mg PO BID [facility] Last Admin: 05/28/17 09:57 Dose: 500 mg Morphine Sulfate (Morphine Inj (Syringe)*) 2 mg IV Q2H PRN PRN Reason: PAIN - MODERATE TO SEVERE Last Admin: 05/27/17 02:34 Dose: 2 mg Ondansetron HCl (Zofran Inj*) 4 mg IV Q4H PRN PRN Reason: NAUSEA Sertraline HCl (Zoloft*) 100 mg PO DAILY [facility] Last Admin: 05/28/17 09:57 Dose: 100 mg Tramadol HCl (Ultram*) 50 mg PO Q6H PRN PRN Reason: PAIN - MILD TO MODERATE Last Admin: 05/28/17 05:25 Dose: 50 mg Vital Signs - 8 hr 05/28/17 05/28/17 05/28/17 04:03 05:25 07:17 Temperature 98.0 F 97.4 F Pulse Rate 77 73 Respiratory 16 18 18 Rate Blood Pressure 118/55 113/53 (mmHg) O2 Sat by Pulse 100 99 Oximetry 05/28/17 05/28/17 08:00 10:02 Temperature Pulse Rate Respiratory 18 18 Rate Blood Pressure (mmHg) O2 Sat by Pulse 99 Oximetry Oxygen Devices in Use Now: None Appearance: uncomfortable appearing. Respiratory: Symmetrical Chest Expansion and Respiratory Effort, Clear to Auscultation Cardiovascular: NL Sounds; No Murmurs; No JVD, RRR Abdominal: NL Sounds; No Tenderness; No Distention Extremities: No Edema, - - right leg in immobilizer. Neurological: Alert and Oriented x 3 Result Diagrams: 05/28/17 05:05 05/28/17 05:05 Additional Lab and Data: Laboratory Results - last 24 hr 05/28/17 05/28/17 05:05 05:05 WBC 13.7 H RBC 3.90 L Hgb 11.0 L Hct 34 L MCV 88 MCH 28 MCHC 32 RDW 16 H Plt Count 400 MPV 8 Neut % (Auto) 80.1 Lymph % (Auto) 10.1 L [place] % (Auto) 9.1 H Eos % (Auto) 0.3 Baso % (Auto) 0.4 Absolute Neuts (auto) 10.9 H Absolute Lymphs (auto) 1.4 Absolute Monos (auto) 1.2 H Absolute Eos (auto) 0 Absolute Basos (auto) 0.1 Absolute Nucleated RBC 0.01 Nucleated RBC % 0 Sodium 130 L Potassium 4.0 Chloride 96 L Carbon Dioxide 28 Anion Gap 6 BUN 19 Creatinine 0.59 Est GFR ( Amer) 128.9 Est GFR (Non-Af Amer) 100.2 BUN/Creatinine Ratio 32.2 H Glucose 121 H Calcium 8.9 Magnesium 1.9 C-Reactive Protein 130.07 H Microbiology and Other Data: Microbiology 05/27/17 00:00 Urine Urine Culture - Preliminary Escherichia Coli 05/26/17 18:10 Nasal Nasal Screen MRSA (PCR)(EMMY) - Final Mrsa Positive Assess/Plan/Problems-Billing Assessment: 71yo female PMH PAD, recent Right Hip fracture with surgery x2, Depression, Rheumatoid Arthritis, Osteoporosis, and Raynaud's phenomenon who presents with non-displaced distal right femur fracture. Patient also has chronic non-healing wounds of the lower extremities, sacral decubitis and probable osteomyelitis of the right 5th toe. - Patient Problems (1) Closed fracture of right distal femur Current Visit: Yes Status: Acute Code(s): S72.401A - UNSP FRACTURE OF LOWER END OF RIGHT FEMUR, INIT FOR CLOS FX SNOMED Code(s): 494539978 Comment: Appreciate Ortho recs. Non-Displaced fracture of distal right femur due to fall. Patient's pain control at rest on Morphine IV (has not been using) , Tramadol and Tylenol. Dr. Parr has talked to patient about possible stabilization, is discussing with pt son. continue knee mmobilizer. (2) Decubitus ulcer Current Visit: Yes Status: Acute Code(s): L89.90 - PRESSURE ULCER OF UNSPECIFIED SITE, UNSPECIFIED STAGE SNOMED Code(s): 564847334 Comment: Appreciate wound care consult. Multiple wounds on both legs, right worse than left with gangrenous 5thtoe and probable underlying osteomyelitis. Dressed with Santyl and Vaseline Gauze. Blood cultures pending. ID was consulted. Continue Ceftriaxone and Flagyl (previously bactrim,keflex). Patient not septic at this time. (3) Depression Current Visit: Yes Status: Acute Code(s): F32.9 - MAJOR DEPRESSIVE DISORDER , SINGLE EPISODE, UNSPECIFIED SNOMED Code(s): 85790014 Comment: Patient has flat affect and dementia, Zoloft 100mg. (4) HTN (hypertension) Current Visit: Yes Status: Acute Code(s): I10 - ESSENTIAL (PRIMARY) HYPERTENSION SNOMED Code(s): 86566514 Comment: Normotensive, Continue atenolol and Lisinopril. (5) Osteomyelitis Current Visit: Yes Status: Acute Code(s): M86.9 - OSTEOMYELITIS, UNSPECIFIED SNOMED Code(s): 24097077 Comment: Presumed, due to positive probe to bone and foul smell from right 5th toe. Continue Ceftriaxone and Flagyl. Appreciate Ortho and IR input, will likely no heal and need amputation. (6) Osteoporosis Current Visit: Yes Status: Acute Code(s): M81.0 - AGE-RELATED OSTEOPOROSIS W /O CURRENT PATHOLOGICAL FRACTURE SNOMED Code(s): 59916653 Comment: Patient has a history of osteoporosis with multiple fractures. Consider outpatient DEXA and medication treatment. Continue Vitamin D. (7) Peripheral arterial disease Current Visit: Yes Status: Acute Code(s): I73.9 - PERIPHERAL VASCULAR DISEASE, UNSPECIFIED SNOMED Code(s): 114015685 Comment: Appreciate Interventional Radiaology recs. BRANDIE, imaging upload from [facility]. Dr. Josue to address rigtht 5th toe for possible amputation. Patient's most recent hip operation complicated by acute limb ischemia in the setting of hypotension and Norepinephrine use. CTA with Runoff and Arterial Doppler showed B/L SFA occlusion with slight popliteal reconstitution. Given low mobility, unlikely any reprofusion surgery would yeild positive results, however, chronic wounds unlikely to heal adequately without adequate arterial flow. (8) Urinary tract infection Current Visit: Yes Status: Acute Comment: Ecoli, f/u sens. continue cftx. (9) Rheumatoid arthritis Current Visit: Yes Status: Acute Code(s): M06.9 - RHEUMATOID ARTHRITIS, UNSPECIFIED SNOMED Code(s): 59093094 Comment: Patient has elevated inflammatory markers, likely due to infection. Patient has never been on a DMARD to her or her Family's recollection. Would recommend F/U with Rheumatology outpatient. (10) DVT prophylaxis Current Visit: Yes Status: Acute Code(s): AQI7018 - SNOMED Code(s): 250323199 Comment: SCDs and Heparin SubQ US negative for DVT. (11) Full code status Current Visit: Yes Status: Acute Code(s): Z78.9 - OTHER SPECIFIED HEALTH STATUS SNOMED Code(s): 016615406 Status and Disposition: Patient is admitted inpatient, will return to [facility] when medically able. Attending: Angus Diaz
--- NOTE | 2017-05-28 12:17 | PN ---
Progress Note - Progress Note Date of Service: 05/28/17 Note: I saw Ms. Agee again this morning. I saw her last night as well and spoke with her son Ahmet on the phone last night. I reviewed with Yarelis the two issues that she has which are the periprosthetic femur fracture. It is well aligned but very painful. I told her we can stabilize the bone and this will help with the pain and her ability to get out of bed which will help with the pressure sores that she has been developing. She currently does not want the surgery. I will speak with her son Ahmet again at the patients request. I have called him and he will return my call. I also talked to her about her toe and peripheral vascular disease. I have spoken with Dr. Josue and he will see her and take care of this early next week. For now we will allow it to demarcate.
[2017-05-28] MEDS: Atorvastatin* 20 MG TAB PO SCH (15:49)
[2017-05-28] MEDS: cefTRIAXone(*) 1 GM in NS 0.9% 50 ML* 50 ML IVPB SCH (15:51)
[2017-05-28] MEDS: Diazepam TAB(NF) 2 MG TAB - use 2.5 of 5 mg tab autosub PO PRN (15:53)
[2017-05-28] MEDS: Collagenase 250 MG/GM OINT* 30 GM TOPICAL SCH (15:58)
[2017-05-28] MEDS: Morphine INJ* 2 MG/ML 1 ML SYRINGE (TWO MG - NEW SYRINGE VERSION) IV PRN (18:36)
[2017-05-28] MEDS: Docusate CAP* 100 MG PO SCH (20:51)
[2017-05-28] MEDS ORDERED: Vancomycin(*) 1,000 MG in D5W 250 ML BAG* 250 ML IVPB ONE (23:00)
[2017-05-29] MEDS ORDERED: Vancomycin(*) 1,000 MG in D5W 250 ML BAG* 250 ML IVPB ONE ×2
[2017-05-29] MEDS: Heparin VIAL(*) 5000 UNITS/ML VIAL (FIVE THOUSAND) SUBCUT SCH ×3 (05:45→21:54)
--- NOTE | 2017-05-29 07:35 | PN ---
Progress Note - Progress Note Date of Service: 05/29/17 SOAP: Subjective: resting comfortably with improved right leg pain Objective: Vital Signs Temp Pulse Resp BP Pulse Ox 97.8 F 77 20 117/53 95 05/29/17 07:16 05/29/17 07:16 05/29/17 07:16 05/29/17 07:16 05/29/17 07:16 Laboratory Last Values WBC 13.7 10^3/ul (3.5-10.8) H 05/28/17 05:05 RBC 3.90 10^6/ul (4.0-5.4) L 05/28/17 05:05 Hgb 11.0 g/dl (12.0-16.0) L 05/28/17 05:05 Hct 34 % (35-47) L 05/28/17 05:05 MCV 88 fL (80-97) 05/28/17 05:05 MCH 28 pg (27-31) 05/28/17 05:05 MCHC 32 g/dl (31-36) 05/28/17 05:05 RDW 16 % (10.5-15) H 05/28/17 05:05 Plt Count 400 10^3/ul (150-450) 05/28/17 05:05 MPV 8 um3 (7.4-10.4) 05/28/17 05:05 Neut % (Auto) 80.1 % (38-83) 05/28/17 05:05 Lymph % (Auto) 10.1 % (25-47) L 05/28/17 05:05 [place] % (Auto) 9.1 % (1-9) H 05/28/17 05:05 Eos % (Auto) 0.3 % (0-6) 05/28/17 05:05 Baso % (Auto) 0.4 % (0-2) 05/28/17 05:05 Absolute Neuts (auto) 10.9 10^3/ul (1.5-7.7) H 05/28/17 05:05 Absolute Lymphs (auto) 1.4 10^3/ul (1.0-4.8) 05/28/17 05:05 Absolute Monos (auto) 1.2 10^3/ul (0-0.8) H 05/28/17 05:05 Absolute Eos (auto) 0 10^3/ul (0-0.6) 05/28/17 05:05 Absolute Basos (auto) 0.1 10^3/ul (0-0.2) 05/28/17 05:05 Absolute Nucleated RBC 0.01 10^3/ul 05/28/17 05:05 Nucleated RBC % 0 05/28/17 05:05 ESR 38 mm/Hr (0-40) 05/26/17 14:05 INR (Anticoag Therapy) 0.98 (0.77-1.02) 05/26/17 14:05 APTT 30.4 seconds (26.0-36.3) 05/26/17 14:05 Sodium 130 mmol/L (133-145) L 05/28/17 05:05 Potassium 4.0 mmol/L (3.5-5.0) 05/28/17 05:05 Chloride 96 mmol/L (101-111) L 05/28/17 05:05 Carbon Dioxide 28 mmol/L (22-32) 05/28/17 05:05 Anion Gap 6 mmol/L (2-11) 05/28/17 05:05 BUN 19 mg/dL (6-24) 05/28/17 05:05 Creatinine 0.59 mg/dL (0.51-0.95) 05/28/17 05:05 Est GFR ( Amer) 128.9 (>60) 05/28/17 05:05 Est GFR (Non-Af Amer) 100.2 (>60) 05/28/17 05:05 BUN/Creatinine Ratio 32.2 (8-20) H 05/28/17 05:05 Glucose 121 mg/dL (70-100) H 05/28/17 05:05 Hemoglobin A1c 4.8 % (4.0-5.6) 05/26/17 14:05 Calcium 8.9 mg/dL (8.6-10.3) 05/28/17 05:05 Magnesium 1.9 mg/dL (1.9-2.7) 05/28/17 05:05 Total Bilirubin 0.50 mg/dL (0.2-1.0) 05/26/17 14:05 AST 16 U/L (13-39) 05/26/17 14:05 ALT 18 U/L (7-52) 05/26/17 14:05 Alkaline Phosphatase 188 U/L (34-104) H 05/26/17 14:05 C-Reactive Protein 130.07 mg/L (< 5.00) H 05/28/17 05:05 Total Protein 6.4 g/dL (6.4-8.9) 05/26/17 14:05 Albumin 3.1 g/dL (3.2-5.2) L 05/26/17 14:05 Globulin 3.3 g/dL (2-4) 05/26/17 14:05 Albumin/Globulin Ratio 0.9 (1-3) L 05/26/17 14:05 Triglycerides 85 mg/dL 05/26/17 14:05 Cholesterol 166 mg/dL 05/26/17 14:05 LDL Cholesterol 94 mg/dL 05/26/17 14:05 HDL Cholesterol 55.0 mg/dL 05/26/17 14:05 TSH 1.73 mcIU/mL (0.34-5.60) 05/26/17 14:05 Urine Color Yellow 05/27/17 00:00 Urine Appearance Turbid 05/27/17 00:00 Urine pH 6.0 (5-9) 05/27/17 00:00 Ur Specific [place] 1.012 (1.010-1.030) 05/27/17 00:00 Urine Protein 2+(100 mg/dl) (Negative) H 05/27/17 00:00 Urine Ketones Negative (Negative) 05/27/17 00:00 Urine Blood 1+ (Negative) H 05/27/17 00:00 Urine Nitrate Positive (Negative) H 05/27/17 00:00 Urine Bilirubin Negative (Negative) 05/27/17 00:00 Urine Urobilinogen Negative (Negative) 05/27/17 00:00 Ur Leukocyte Esterase 2+ (Negative) H 05/27/17 00:00 Urine WBC (Auto) 3+(>20/hpf) (Absent) H 05/27/17 00:00 Urine RBC (Auto) 3+(>10/hpf) (Absent) H 05/27/17 00:00 Urine Bacteria 2+ (Absent) H 05/27/17 00:00 Urine Glucose Negative (Negative) 05/27/17 00:00 Urine Ascorbic Acid * (Negative) H 05/27/17 00:00 PE: NVI Assessment: non-displace distal femur fracture; non-op Plan: 1) NWB RLE with immobilizer 2) PT/OT 3) Hospitalist co-managing 4) Heparin/SCD's for DVT prophylaxis
[2017-05-29] MEDS: metroNIDAZOLE TAB* 250 MG PO SCH ×2 (08:31→19:37)
[2017-05-29] MEDS: Aspirin EC Low Dose* 81 MG TAB.EC PO SCH (08:31)
[2017-05-29] MEDS: Cholecalciferol TAB* 1000 UNITS PO SCH (08:31)
[2017-05-29] MEDS: Atenolol TAB* 50 MG PO SCH (08:31)
[2017-05-29] MEDS: Sertraline* 100 MG TAB PO SCH (08:32)
[2017-05-29] MEDS: Ascorbic Acid TAB* 500 MG PO SCH (08:32)
[2017-05-29] MEDS: Lisinopril TAB* 10 MG PO SCH (08:32)
[2017-05-29] MEDS: Ferrous Sulfate TAB* 325 MG PO SCH ×2 (08:32→19:37)
[2017-05-29] MEDS: traMADol TAB* 50 MG PO PRN ×2 (10:59→21:53)
[2017-05-29] MEDS ORDERED: Vancomycin(*) 1,000 MG VIAL IVPB SCH (13:00)
[2017-05-29] MEDS: Morphine INJ* 2 MG/ML 1 ML SYRINGE (TWO MG - NEW SYRINGE VERSION) IV PRN ×3 (13:42→22:59)
[2017-05-29] MEDS ORDERED: Vancomycin per Pharmacy* NOTE FOLLOW UP PRN (13:47)
[2017-05-29] MEDS ORDERED: Vancomycin(*) 750 MG in NS 0.9% 250 ML* 250 ML IVPB ONE (14:00)
[2017-05-29] MEDS: Senna TAB PO SCH (14:48)
[2017-05-29] MEDS: cefTRIAXone(*) 1 GM in NS 0.9% 50 ML* 50 ML IVPB SCH (16:41)
[2017-05-29] MEDS: Atorvastatin* 20 MG TAB PO SCH (16:42)
--- NOTE | 2017-05-29 16:46 | PN ---
Subjective Date of Service: 05/29/17 Interval History: 1 anaerobic blood culture with MRSA, started on vancomycin. Pt in significant pain on interview. Per RN had been trying to get her to take prns most of morning. did get tramadol. Pt and son leaning towards wanting additional surgery for her femur. Poor appetite. Family History: Unchanged from Admission Social History: Unchanged from Admission Past Medical History: Unchanged from Admission Objective Active Medications: Acetaminophen (Tylenol Tab*) 650 mg PO Q6H PRN PRN Reason: PAIN Last Admin: 05/28/17 10:02 Dose: 650 mg Albuterol/Ipratropium (Duoneb (Albuterol 2.5 Mg/Ipratropium 0.5 Mg)) 1 neb INH Q6H PRN PRN Reason: SOB/WHEEZING Ascorbic Acid (Vitamin C Tab*) 500 mg PO DAILY [facility] Last Admin: 05/29/17 08:32 Dose: 500 mg Aspirin (Aspirin Ec Low Dose*) 81 mg PO DAILY [facility] Last Admin: 05/29/17 08:31 Dose: 81 mg Atenolol (Tenormin Tab*) 50 mg PO DAILY [facility] Last Admin: 05/29/17 08:31 Dose: 50 mg Atorvastatin Calcium (Lipitor*) 20 mg PO 1700 [facility] Last Admin: 05/28/17 15:49 Dose: 20 mg Cholecalciferol (Vitamin D Tab*) 2,000 units PO DAILY [facility] Last Admin: 05/29/17 08:31 Dose: 2,000 units Collagenase (Santyl 250 Mg/Gm Oint*) 1 applic TOPICAL .SEE INSTRUCTIONS [facility] Last Admin: 05/28/17 15:58 Dose: 1 applic Diazepam (Valium Tab(*)) 2 mg PO Q8H PRN PRN Reason: muscle spasm Last Admin: 05/28/17 15:53 Dose: 2 mg Docusate Sodium (Colace Cap*) 200 mg PO BEDTIME [facility] Last Admin: 05/28/17 20:51 Dose: Not Given Ferrous Sulfate (Ferrous Sulfate Tab*) 325 mg PO BID [facility] Last Admin: 05/29/17 08:32 Dose: 325 mg Heparin Sodium (Porcine) (Heparin Vial(*)) 5,000 units SUBCUT Q8HR [facility] Last Admin: 05/29/17 13:42 Dose: 5,000 units Ceftriaxone Sodium 1 gm/ (Sodium Chloride) 50 mls @ 200 mls/hr IVPB Q24H [facility] Last Admin: 05/28/17 15:51 Dose: 200 mls/hr Lisinopril (Prinivil Tab*) 20 mg PO DAILY [facility] Last Admin: 05/29/17 08:32 Dose: 20 mg Metronidazole (Flagyl Tab*) 500 mg PO BID [facility] Last Admin: 05/29/17 08:31 Dose: 500 mg Morphine Sulfate (Morphine Inj (Syringe)*) 2 mg IV Q2H PRN PRN Reason: PAIN - MODERATE TO SEVERE Last Admin: 05/29/17 13:42 Dose: 2 mg Ondansetron HCl (Zofran Inj*) 4 mg IV Q4H PRN PRN Reason: NAUSEA Last Admin: 05/28/17 13:41 Dose: 4 mg Pharmacy Consult (Vancomycin Per Pharmacy*) 1 note FOLLOW UP . PRN PRN Reason: PER PROTOCOL Senna (Senokot Tab*) 1 tab PO DAILY [facility] Last Admin: 05/29/17 14:48 Dose: 1 tab Sertraline HCl (Zoloft*) 100 mg PO DAILY [facility] Last Admin: 05/29/17 08:32 Dose: 100 mg Tramadol HCl (Ultram*) 50 mg PO Q6H PRN PRN Reason: PAIN - MILD TO MODERATE Last Admin: 05/29/17 10:59 Dose: 50 mg Vital Signs - 8 hr 05/29/17 05/29/17 05/29/17 10:59 11:45 13:42 Temperature 98.1 F Pulse Rate 69 Respiratory 18 17 18 Rate Blood Pressure 118/52 (mmHg) O2 Sat by Pulse 100 Oximetry 05/29/17 05/29/17 05/29/17 13:47 15:20 15:27 Temperature 97.3 F Pulse Rate 81 Respiratory 18 16 18 Rate Blood Pressure 108/54 (mmHg) O2 Sat by Pulse 91 Oximetry Oxygen Devices in Use Now: Nasal Cannula Appearance: Uncomfortable appearing. Ears/Nose/Mouth/Throat: NL Teeth, Lips, Gums Neck: NL Appearance and Movements; NL JVP Respiratory: Symmetrical Chest Expansion and Respiratory Effort, Clear to Auscultation Cardiovascular: NL Sounds; No Murmurs; No JVD, RRR Abdominal: NL Sounds; No Tenderness; No Distention Extremities: No Edema, - - right leg in immobilizer; left ankle examined, no ulceration seen though exam somewhat pain limited. right 5th toe wounds. Skin: - Neurological: Alert and Oriented x 3 Nutrition: Taking PO's Result Diagrams: 05/28/17 05:05 05/28/17 05:05 Additional Lab and Data: Laboratory Tests 05/26/17 05/26/17 05/26/17 14:05 14:05 14:05 WBC 14.8 H RBC 4.07 Hgb 11.5 L Hct 36 MCV 88 MCH 28 MCHC 32 RDW 16 H Plt Count 466 H D MPV 8 Neut % (Auto) 82.7 Lymph % (Auto) 9.4 L [place] % (Auto) 7.4 Eos % (Auto) 0.2 Baso % (Auto) 0.3 Absolute Neuts (auto) 12.2 H Absolute Lymphs (auto) 1.4 Absolute Monos (auto) 1.1 H Absolute Eos (auto) 0 Absolute Basos (auto) 0 Absolute Nucleated RBC 0 Nucleated RBC % 0 ESR INR (Anticoag Therapy) APTT Sodium 129 L Potassium 4.5 Chloride 95 L Carbon Dioxide 28 Anion Gap 6 BUN 11 Creatinine 0.45 L Est GFR ( Amer) 176.1 Est GFR (Non-Af Amer) 137.0 BUN/Creatinine Ratio 24.4 H Glucose 114 H Hemoglobin A1c 4.8 Calcium 8.9 Magnesium Total Bilirubin 0.50 AST 16 ALT 18 Alkaline Phosphatase 188 H C-Reactive Protein 62.74 H Total Protein 6.4 Albumin 3.1 L Globulin 3.3 Albumin/Globulin Ratio 0.9 L Triglycerides 85 Cholesterol 166 LDL Cholesterol 94 HDL Cholesterol 55.0 TSH 1.73 Urine Color Urine Appearance Urine pH Ur Specific [place] Urine Protein Urine Ketones Urine Blood Urine Nitrate Urine Bilirubin Urine Urobilinogen Ur Leukocyte Esterase Urine WBC (Auto) Urine RBC (Auto) Urine Bacteria Urine Glucose Urine Ascorbic Acid 05/26/17 05/26/17 05/27/17 14:05 14:05 00:00 WBC RBC Hgb Hct MCV MCH MCHC RDW Plt Count MPV Neut % (Auto) Lymph % (Auto) [place] % (Auto) Eos % (Auto) Baso % (Auto) Absolute Neuts (auto) Absolute Lymphs (auto) Absolute Monos (auto) Absolute Eos (auto) Absolute Basos (auto) Absolute Nucleated RBC Nucleated RBC % ESR 38 INR (Anticoag Therapy) 0.98 APTT 30.4 Sodium Potassium Chloride Carbon Dioxide Anion Gap BUN Creatinine Est GFR ( Amer) Est GFR (Non-Af Amer) BUN/Creatinine Ratio Glucose Hemoglobin A1c Calcium Magnesium Total Bilirubin AST ALT Alkaline Phosphatase C-Reactive Protein Total Protein Albumin Globulin Albumin/Globulin Ratio Triglycerides Cholesterol LDL Cholesterol HDL Cholesterol TSH Urine Color Yellow Urine Appearance Turbid Urine pH 6.0 Ur Specific [place] 1.012 Urine Protein 2+(100 mg/dl) H Urine Ketones Negative Urine Blood 1+ H Urine Nitrate Positive H Urine Bilirubin Negative Urine Urobilinogen Negative Ur Leukocyte Esterase 2+ H Urine WBC (Auto) 3+(>20/hpf) H Urine RBC (Auto) 3+(>10/hpf) H Urine Bacteria 2+ H Urine Glucose Negative Urine Ascorbic Acid * H 05/27/17 05/27/17 05/28/17 05:26 05:26 05:05 WBC 11.6 H 13.7 H RBC 3.81 L 3.90 L Hgb 10.9 L 11.0 L Hct 33 L 34 L MCV 87 88 MCH 29 28 MCHC 33 32 RDW 16 H 16 H Plt Count 381 400 MPV 8 8 Neut % (Auto) 77.9 80.1 Lymph % (Auto) 11.9 L 10.1 L [place] % (Auto) 9.1 H 9.1 H Eos % (Auto) 0.6 0.3 Baso % (Auto) 0.5 0.4 Absolute Neuts (auto) 9.1 H 10.9 H Absolute Lymphs (auto) 1.4 1.4 Absolute Monos (auto) 1.1 H 1.2 H Absolute Eos (auto) 0.1 0 Absolute Basos (auto) 0.1 0.1 Absolute Nucleated RBC 0.01 0.01 Nucleated RBC % 0.1 0 ESR INR (Anticoag Therapy) APTT Sodium 129 L Potassium 4.2 Chloride 95 L Carbon Dioxide 28 Anion Gap 6 BUN 14 Creatinine 0.44 L Est GFR ( Amer) 180.8 Est GFR (Non-Af Amer) 140.6 BUN/Creatinine Ratio 31.8 H Glucose 109 H Hemoglobin A1c Calcium 8.7 Magnesium 1.6 L Total Bilirubin AST ALT Alkaline Phosphatase C-Reactive Protein Total Protein Albumin Globulin Albumin/Globulin Ratio Triglycerides Cholesterol LDL Cholesterol HDL Cholesterol TSH Urine Color Urine Appearance Urine pH Ur Specific [place] Urine Protein Urine Ketones Urine Blood Urine Nitrate Urine Bilirubin Urine Urobilinogen Ur Leukocyte Esterase Urine WBC (Auto) Urine RBC (Auto) Urine Bacteria Urine Glucose Urine Ascorbic Acid 05/28/17 05:05 WBC RBC Hgb Hct MCV MCH MCHC RDW Plt Count MPV Neut % (Auto) Lymph % (Auto) [place] % (Auto) Eos % (Auto) Baso % (Auto) Absolute Neuts (auto) Absolute Lymphs (auto) Absolute Monos (auto) Absolute Eos (auto) Absolute Basos (auto) Absolute Nucleated RBC Nucleated RBC % ESR INR (Anticoag Therapy) APTT Sodium 130 L Potassium 4.0 Chloride 96 L Carbon Dioxide 28 Anion Gap 6 BUN 19 Creatinine 0.59 Est GFR ( Amer) 128.9 Est GFR (Non-Af Amer) 100.2 BUN/Creatinine Ratio 32.2 H Glucose 121 H Hemoglobin A1c Calcium 8.9 Magnesium 1.9 Total Bilirubin AST ALT Alkaline Phosphatase C-Reactive Protein 130.07 H Total Protein Albumin Globulin Albumin/Globulin Ratio Triglycerides Cholesterol LDL Cholesterol HDL Cholesterol TSH Urine Color Urine Appearance Urine pH Ur Specific [place] Urine Protein Urine Ketones Urine Blood Urine Nitrate Urine Bilirubin Urine Urobilinogen Ur Leukocyte Esterase Urine WBC (Auto) Urine RBC (Auto) Urine Bacteria Urine Glucose Urine Ascorbic Acid Microbiology and Other Data: Microbiology 05/27/17 17:33 Blood Venous Aerobic Blood Culture - Preliminary No Growth Day 1 05/27/17 17:33 Blood Venous Anaerobic Blood Culture - Preliminary Staphylococcus Aureus 05/27/17 17:33 Blood Venous Blood MRSA/MSSA (PCR) - Final Mrsa Positive S.aureus Positive 05/27/17 00:00 Urine Urine Culture - Final Escherichia Coli 05/26/17 18:10 Nasal Nasal Screen MRSA (PCR)(EMMY) - Final Mrsa Positive Assess/Plan/Problems-Billing Assessment: 71yo female PMH PAD, recent Right Hip fracture with surgery x2, Depression, Rheumatoid Arthritis, Osteoporosis, and Raynaud's phenomenon who presents with non-displaced distal right femur fracture. Patient also has chronic non-healing wounds of the lower extremities, sacral decubitis and probable osteomyelitis of the right 5th toe and now MRSA bacteremia. On vanc/cftx/bactrim - Patient Problems (1) Closed fracture of right distal femur Current Visit: Yes Status: Acute Code(s): S72.401A - UNSP FRACTURE OF LOWER END OF RIGHT FEMUR, INIT FOR CLOS FX SNOMED Code(s): 766975322 Comment: Appreciate Ortho recs. Non-Displaced fracture of distal right femur due to fall. Patient's pain control at rest on Morphine IV (had not been using until today), Tramadol and Tylenol. Dr. Parr has talked to patient about possible stabilization, is discussing with pt son. continue knee mmobilizer. Pt says they decided to do surgery. (2) MRSA bacteremia Current Visit: Yes Status: Acute Code(s): R78.81 - BACTEREMIA SNOMED Code( s): 64652817322748957 Comment: started vanc. repeat Bcxs. f/u ID recs. (3) Decubitus ulcer Current Visit: Yes Status: Acute Code(s): L89.90 - PRESSURE ULCER OF UNSPECIFIED SITE, UNSPECIFIED STAGE SNOMED Code(s): 421496800 Comment: Appreciate wound care consult. Multiple wounds on both legs, right worse than left with gangrenous 5th toe and probable underlying osteomyelitis. Dressed with Santyl and Vaseline Gauze. Blood cultures positive. ID was consulted. Continue Ceftriaxone and Flagyl and now vancomycin (previously bactrim,keflex). (4) Depression Current Visit: Yes Status: Acute Code(s): F32.9 - MAJOR DEPRESSIVE DISORDER , SINGLE EPISODE, UNSPECIFIED SNOMED Code(s): 80212093 Comment: Zoloft 100mg. (5) HTN (hypertension) Current Visit: Yes Status: Acute Code(s): I10 - ESSENTIAL (PRIMARY) HYPERTENSION SNOMED Code(s): 01850240 Comment: Normotensive but on low end normal and now with bacteremia, Continue atenolol. Will stop Lisinopril (20mg). (6) Osteomyelitis Current Visit: Yes Status: Acute Code(s): M86.9 - OSTEOMYELITIS, UNSPECIFIED SNOMED Code(s): 25629454 Comment: Presumed, due to positive probe to bone and foul smell from right 5th toe. Continue Ceftriaxone and Flagyl. Now on vanc also given MRSA baceremia. Appreciate Ortho and IR input, will likely not heal and need amputation. (7) Osteoporosis Current Visit: Yes Status: Acute Code(s): M81.0 - AGE-RELATED OSTEOPOROSIS W /O CURRENT PATHOLOGICAL FRACTURE SNOMED Code(s): 59721940 Comment: Patient has a history of osteoporosis with multiple fractures. Consider outpatient DEXA and medication treatment. Continue Vitamin D. (8) Peripheral arterial disease Current Visit: Yes Status: Acute Code(s): I73.9 - PERIPHERAL VASCULAR DISEASE, UNSPECIFIED SNOMED Code(s): 008015544 Comment: Appreciate Interventional Radiaology recs. BRANDIE, imaging upload from [facility]. Dr. Josue to address rigtht 5th toe for possible amputation. Patient's most recent hip operation complicated by acute limb ischemia in the setting of hypotension and Norepinephrine use. CTA with Runoff and Arterial Doppler showed B/L SFA occlusion with slight popliteal reconstitution. Given low mobility, unlikely any reprofusion surgery would yeild positive results, however, chronic wounds unlikely to heal adequately without adequate arterial flow. (9) Urinary tract infection Current Visit: Yes Status: Acute Comment: Ecoli >100K, pansensitive. continue cftx. (10) Rheumatoid arthritis Current Visit: Yes Status: Acute Code(s): M06.9 - RHEUMATOID ARTHRITIS, UNSPECIFIED SNOMED Code(s): 64840583 Comment: Patient has elevated inflammatory markers, likely due to infection. Patient has never been on a DMARD to her or her Family's recollection. Would recommend F/U with Rheumatology outpatient. (11) DVT prophylaxis Current Visit: Yes Status: Acute Code(s): DEZ0313 - SNOMED Code(s): 355748601 Comment: SCDs and Heparin SubQ US negative for DVT. (12) Full code status Current Visit: Yes Status: Acute Code(s): Z78.9 - OTHER SPECIFIED HEALTH STATUS SNOMED Code(s): 499244249 Status and Disposition: Patient is admitted inpatient, will return to [facility] when medically able. surgeries planned Attending: Angus Diaz
[2017-05-29] MEDS: Docusate CAP* 100 MG PO SCH (19:36)
[2017-05-29] MEDS: Vancomycin(*) 1,000 MG in NS 0.9% 250 ML* 250 ML IVPB SCH (22:59)
[2017-05-30] MEDS: Morphine INJ* 2 MG/ML 1 ML SYRINGE (TWO MG - NEW SYRINGE VERSION) IV PRN ×3 (01:49→19:57)
[2017-05-30 05:18] LABS: EGFR Non-African American 121.3 (>60)
[2017-05-30] MEDS: traMADol TAB* 50 MG PO PRN ×2 (05:42→16:03)
[2017-05-30] MEDS: Heparin VIAL(*) 5000 UNITS/ML VIAL (FIVE THOUSAND) SUBCUT SCH ×3 (05:42→21:03)
--- NOTE | 2017-05-30 08:37 | PN ---
Progress Note - Progress Note Date of Service: 05/30/17 SOAP: Subjective: resting comfortably with improved right leg pain Objective: Vital Signs Temp Pulse Resp BP Pulse Ox 97.7 F 81 16 136/61 90 05/30/17 07:43 05/30/17 07:43 05/30/17 08:09 05/30/17 07:43 05/30/17 08:00 Laboratory Last Values WBC 13.7 10^3/ul (3.5-10.8) H 05/28/17 05:05 RBC 3.90 10^6/ul (4.0-5.4) L 05/28/17 05:05 Hgb 11.0 g/dl (12.0-16.0) L 05/28/17 05:05 Hct 34 % (35-47) L 05/28/17 05:05 MCV 88 fL (80-97) 05/28/17 05:05 MCH 28 pg (27-31) 05/28/17 05:05 MCHC 32 g/dl (31-36) 05/28/17 05:05 RDW 16 % (10.5-15) H 05/28/17 05:05 Plt Count 400 10^3/ul (150-450) 05/28/17 05:05 MPV 8 um3 (7.4-10.4) 05/28/17 05:05 Neut % (Auto) 80.1 % (38-83) 05/28/17 05:05 Lymph % (Auto) 10.1 % (25-47) L 05/28/17 05:05 [place] % (Auto) 9.1 % (1-9) H 05/28/17 05:05 Eos % (Auto) 0.3 % (0-6) 05/28/17 05:05 Baso % (Auto) 0.4 % (0-2) 05/28/17 05:05 Absolute Neuts (auto) 10.9 10^3/ul (1.5-7.7) H 05/28/17 05:05 Absolute Lymphs (auto) 1.4 10^3/ul (1.0-4.8) 05/28/17 05:05 Absolute Monos (auto) 1.2 10^3/ul (0-0.8) H 05/28/17 05:05 Absolute Eos (auto) 0 10^3/ul (0-0.6) 05/28/17 05:05 Absolute Basos (auto) 0.1 10^3/ul (0-0.2) 05/28/17 05:05 Absolute Nucleated RBC 0.01 10^3/ul 05/28/17 05:05 Nucleated RBC % 0 05/28/17 05:05 ESR 38 mm/Hr (0-40) 05/26/17 14:05 INR (Anticoag Therapy) 0.98 (0.77-1.02) 05/26/17 14:05 APTT 30.4 seconds (26.0-36.3) 05/26/17 14:05 Sodium 130 mmol/L (133-145) L 05/28/17 05:05 Potassium 4.0 mmol/L (3.5-5.0) 05/28/17 05:05 Chloride 96 mmol/L (101-111) L 05/28/17 05:05 Carbon Dioxide 28 mmol/L (22-32) 05/28/17 05:05 Anion Gap 6 mmol/L (2-11) 05/28/17 05:05 BUN 24 mg/dL (6-24) 05/30/17 04:51 Creatinine 0.50 mg/dL (0.51-0.95) L 05/30/17 04:51 Est GFR ( Amer) 156.0 (>60) 05/30/17 04:51 Est GFR (Non-Af Amer) 121.3 (>60) 05/30/17 04:51 BUN/Creatinine Ratio 32.2 (8-20) H 05/28/17 05:05 Glucose 121 mg/dL (70-100) H 05/28/17 05:05 Hemoglobin A1c 4.8 % (4.0-5.6) 05/26/17 14:05 Calcium 8.9 mg/dL (8.6-10.3) 05/28/17 05:05 Magnesium 1.9 mg/dL (1.9-2.7) 05/28/17 05:05 Total Bilirubin 0.50 mg/dL (0.2-1.0) 05/26/17 14:05 AST 16 U/L (13-39) 05/26/17 14:05 ALT 18 U/L (7-52) 05/26/17 14:05 Alkaline Phosphatase 188 U/L (34-104) H 05/26/17 14:05 C-Reactive Protein 130.07 mg/L (< 5.00) H 05/28/17 05:05 Total Protein 6.4 g/dL (6.4-8.9) 05/26/17 14:05 Albumin 3.1 g/dL (3.2-5.2) L 05/26/17 14:05 Globulin 3.3 g/dL (2-4) 05/26/17 14:05 Albumin/Globulin Ratio 0.9 (1-3) L 05/26/17 14:05 Triglycerides 85 mg/dL 05/26/17 14:05 Cholesterol 166 mg/dL 05/26/17 14:05 LDL Cholesterol 94 mg/dL 05/26/17 14:05 HDL Cholesterol 55.0 mg/dL 05/26/17 14:05 TSH 1.73 mcIU/mL (0.34-5.60) 05/26/17 14:05 Urine Color Yellow 05/27/17 00:00 Urine Appearance Turbid 05/27/17 00:00 Urine pH 6.0 (5-9) 05/27/17 00:00 Ur Specific [place] 1.012 (1.010-1.030) 05/27/17 00:00 Urine Protein 2+(100 mg/dl) (Negative) H 05/27/17 00:00 Urine Ketones Negative (Negative) 05/27/17 00:00 Urine Blood 1+ (Negative) H 05/27/17 00:00 Urine Nitrate Positive (Negative) H 05/27/17 00:00 Urine Bilirubin Negative (Negative) 05/27/17 00:00 Urine Urobilinogen Negative (Negative) 05/27/17 00:00 Ur Leukocyte Esterase 2+ (Negative) H 05/27/17 00:00 Urine WBC (Auto) 3+(>20/hpf) (Absent) H 05/27/17 00:00 Urine RBC (Auto) 3+(>10/hpf) (Absent) H 05/27/17 00:00 Urine Bacteria 2+ (Absent) H 05/27/17 00:00 Urine Glucose Negative (Negative) 05/27/17 00:00 Urine Ascorbic Acid * (Negative) H 05/27/17 00:00 PE: NVI Assessment: non-displaced distal femur fracture; non-op Plan: 1) NWB with immobilizer 2) continue DVT prophylaxis 3) hospitalist co-managing
[2017-05-30] MEDS: Ferrous Sulfate TAB* 325 MG PO SCH ×3 (10:32→19:58)
[2017-05-30] MEDS: metroNIDAZOLE TAB* 250 MG PO SCH ×2 (10:32→11:02)
[2017-05-30] MEDS: Atenolol TAB* 50 MG PO SCH ×2 (10:32→11:02)
[2017-05-30] MEDS: Collagenase 250 MG/GM OINT* 30 GM TOPICAL SCH (10:32)
[2017-05-30] MEDS: Cholecalciferol TAB* 1000 UNITS PO SCH ×2 (10:33→11:02)
[2017-05-30] MEDS: Sertraline* 100 MG TAB PO SCH ×2 (10:33→11:03)
[2017-05-30] MEDS: Ascorbic Acid TAB* 500 MG PO SCH ×2 (10:33→11:01)
[2017-05-30] MEDS: Aspirin EC Low Dose* 81 MG TAB.EC PO SCH ×2 (10:33→11:02)
[2017-05-30] MEDS: Senna TAB PO SCH ×3 (10:33→19:58)
[2017-05-30] MEDS: Vancomycin(*) 1,000 MG in NS 0.9% 250 ML* 250 ML IVPB SCH ×2 (10:57→23:17)
--- NOTE | 2017-05-30 12:34 | PN ---
Progress Note - Progress Note Date of Service: 05/30/17 Note: I have spoken with Dr. Josue and Dr. Feliciano. They have asked that I obtain make MsJulio Anuel neriso at midnight for possible intervention on the foot tomorrow. I have ordered foot xrays. I will check another set of femur xrays out of brace to make sure there has been no displacement.
[2017-05-30] MEDS: metroNIDAZOLE IV 500 MG/100ML* 500 MG/100 ML BAG IVPB SCH ×2 (13:01→19:57)
[2017-05-30] MEDS: Diazepam TAB(NF) 2 MG TAB - use 2.5 of 5 mg tab autosub PO PRN ×2 (13:01→21:03)
--- NOTE | 2017-05-30 13:46 | RAD ---
Indication: Distal RIGHT femur fracture. Comparison: May 26, 2017 Technique: AP and crosstable lateral views RIGHT femur. Report: RIGHT total hip prosthesis in place with 3 cerclage wires distally bridging a periprosthetic fracture with subtle callus formation indicating healing response. Contiguous with the perivesical fracture there is a fracture plane extending caudal to the junction of the distal diaphysis and distal metaphysis of the femur where there is a spiral fracture extending to the anterior, medial, lateral cortices with mild callus formation indicating healing response. Reference the distal crosstable lateral view there is a subacute appearing fracture through the junction of the distal metaphysis and femoral condyles with mild posterior displacement and apex anterior angulation. Bone density appears decreased throughout. Small suprapatellar knee joint effusion with fat fluid level. Peripheral vascular calcifications. Diffuse muscle atrophy. Diffuse soft tissue edema. IMPRESSION: 1. New joint effusion and fat fluid level at the RIGHT knee compared with May 26, 2017 exam. The radiographic appearance suggests mild change in displacement of the insufficiency fracture the junction of the distal metaphysis and condyles of the femur. 2. Healing response with periprosthetic fracture with extension to the junction of the distal diaphysis and distal metaphysis without significant interval change.
--- NOTE | 2017-05-30 14:20 | RAD ---
Indication: Necrotic fifth toe. Comparison: No relevant prior exams available on the [facility] PACS for comparison. Technique: AP, lateral, and oblique views RIGHT foot. Report: Assessment of the fifth toe is limited due to superimposed adjacent fourth toe and decreased bone density throughout. Negative for fracture or dislocation. No focal osteolysis or suspicious osteosclerosis evident. Unremarkable soft tissue contours. IMPRESSION: Limited exam without compelling evidence for osteomyelitis. If there is persistent clinical concern consider MRI or in setting of contraindication to MRI 3 phase bone scan for further assessment.
--- NOTE | 2017-05-30 14:21 | PN ---
Progress Note - Progress Note Date of Service: 05/30/17 SOAP: Subjective: reports pain in RLE. I was asked to evaluate right foot and gangrenous 5th toe [] Objective: Temp Pulse Resp BP Pulse Ox 100.9 F 81 18 136/61 90 05/30/17 11:55 05/30/17 07:43 05/30/17 13:01 05/30/17 07:43 05/30/17 08:00 right foot without palpable pulses gangrenous and malodorous 5th toe no global swelling or erythema [] WBC 13.7 CRP 130 ESR 38 BRANDIE on R .34 PT and .33 DP Assessment: Right 5th toe gangrene likely from underlying peripheral vascular disease. She also has a right femur fx being treated non-op by Dr Parr. This is a very difficult problem given the underlying PVD. We discussed both non -op and operative options for the toe. We discussed a toe amputation to remove infection and potential nidus for infection. But we also discussed that given underlying PVD there is a real chance of wound problems and need for further surgery. [] Plan: NWB RLE Recommend a right foot MRI to assess for underlying deep infection prior to surgery OR likely for right 5th toe amputation Appreciate vascular team's input re: options for PVD abx per ID Casey Josue MD Over 35 minutes was spent [id number] with the patient and her family in her room today and greater than half of that time was spent on counseling and coordination of care []
[2017-05-30] MEDS: Atorvastatin* 20 MG TAB PO SCH (16:03)
[2017-05-30] MEDS: cefTRIAXone(*) 1 GM in NS 0.9% 50 ML* 50 ML IVPB SCH (16:03)
[2017-05-30] MEDS: Docusate CAP* 100 MG PO SCH (19:57)
[2017-05-30] MEDS: Acetaminophen TAB* 325 MG PO PRN (19:58)
--- NOTE | 2017-05-30 20:04 | PN ---
Subjective Date of Service: 05/30/17 Interval History: pt very uncomfortable appearing today, had just done a lot of transferring. has been not taking much po. Family History: Unchanged from Admission Social History: Unchanged from Admission Past Medical History: Unchanged from Admission Objective Active Medications: Acetaminophen (Tylenol Tab*) 650 mg PO Q6H PRN PRN Reason: PAIN Last Admin: 05/28/17 10:02 Dose: 650 mg Albuterol/Ipratropium (Duoneb (Albuterol 2.5 Mg/Ipratropium 0.5 Mg)) 1 neb INH Q6H PRN PRN Reason: SOB/WHEEZING Ascorbic Acid (Vitamin C Tab*) 500 mg PO DAILY [facility] Last Admin: 05/30/17 11:01 Dose: Not Given Aspirin (Aspirin Ec Low Dose*) 81 mg PO DAILY [facility] Last Admin: 05/30/17 11:02 Dose: Not Given Atenolol (Tenormin Tab*) 50 mg PO DAILY [facility] Last Admin: 05/30/17 11:02 Dose: Not Given Atorvastatin Calcium (Lipitor*) 20 mg PO 1700 [facility] Last Admin: 05/30/17 16:03 Dose: 20 mg Cholecalciferol (Vitamin D Tab*) 2,000 units PO DAILY [facility] Last Admin: 05/30/17 11:02 Dose: Not Given Collagenase (Santyl 250 Mg/Gm Oint*) 1 applic TOPICAL .SEE INSTRUCTIONS [facility] Last Admin: 05/30/17 10:32 Dose: 1 applic Diazepam (Valium Tab(*)) 2 mg PO Q8H PRN PRN Reason: muscle spasm Last Admin: 05/30/17 13:01 Dose: 2 mg Docusate Sodium (Colace Cap*) 200 mg PO BEDTIME [facility] Last Admin: 05/29/17 19:36 Dose: 200 mg Ferrous Sulfate (Ferrous Sulfate Tab*) 325 mg PO BID [facility] Last Admin: 05/30/17 11:02 Dose: Not Given Heparin Sodium (Porcine) (Heparin Vial(*)) 5,000 units SUBCUT Q8HR [facility] Last Admin: 05/30/17 14:01 Dose: 5,000 units Ceftriaxone Sodium 1 gm/ (Sodium Chloride) 50 mls @ 200 mls/hr IVPB Q24H [facility] Last Admin: 05/30/17 16:03 Dose: 200 mls/hr Vancomycin HCl 1,000 mg/ (Sodium Chloride) 250 mls @ 166.667 mls/hr IVPB Q12H [facility] Last Admin: 05/30/17 10:57 Dose: 166.667 mls/hr Metronidazole/Sodium Chloride (Flagyl 500 Mg Ivpb*) 500 mg in 100 mls @ 100 mls /hr IVPB Q8H [facility] Last Admin: 05/30/17 13:01 Dose: 100 mls/hr Morphine Sulfate (Morphine Inj (Syringe)*) 2 mg IV Q2H PRN PRN Reason: PAIN - MODERATE TO SEVERE Last Admin: 05/30/17 11:25 Dose: 2 mg Ondansetron HCl (Zofran Inj*) 4 mg IV Q4H PRN PRN Reason: NAUSEA Last Admin: 05/28/17 13:41 Dose: 4 mg Pharmacy Consult (Vancomycin Per Pharmacy*) 1 note FOLLOW UP . PRN PRN Reason: PER PROTOCOL Pharmacy Profile Note (Vancomycin Trough Check) 1 note FOLLOW UP 1030 ONE Stop: 05/31/17 10:31 Senna (Senokot Tab*) 1 tab PO DAILY [facility] Last Admin: 05/30/17 11:02 Dose: Not Given Sertraline HCl (Zoloft*) 100 mg PO DAILY [facility] Last Admin: 05/30/17 11:03 Dose: Not Given Tramadol HCl (Ultram*) 50 mg PO Q6H PRN PRN Reason: PAIN - MILD TO MODERATE Last Admin: 05/30/17 16:03 Dose: 50 mg Vital Signs - 8 hr 05/30/17 05/30/17 05/30/17 13:01 15:58 16:03 Temperature 97.3 F Pulse Rate 86 Respiratory 18 16 18 Rate Blood Pressure 133/62 (mmHg) O2 Sat by Pulse 99 Oximetry 05/30/17 05/30/17 17:55 20:00 Temperature 97.2 F Pulse Rate Respiratory 16 Rate Blood Pressure (mmHg) O2 Sat by Pulse Oximetry Oxygen Devices in Use Now: Nasal Cannula Appearance: very uncomfortable appearing. Ears/Nose/Mouth/Throat: NL Teeth, Lips, Gums Neck: NL Appearance and Movements; NL JVP Respiratory: Symmetrical Chest Expansion and Respiratory Effort Cardiovascular: NL Sounds; No Murmurs; No JVD Abdominal: NL Sounds; No Tenderness; No Distention Extremities: - - right leg in immobilizer, right 5th toe with necrotic wound. Neurological: - - ROS limited given pain and reluctance to interview. Result Diagrams: 05/28/17 05:05 05/30/17 04:51 Additional Lab and Data: Laboratory Results - last 24 hr 05/30/17 04:51 BUN 24 Creatinine 0.50 L Est GFR ( Amer) 156.0 Est GFR (Non-Af Amer) 121.3 Microbiology and Other Data: Microbiology 05/27/17 17:33 Blood Venous Aerobic Blood Culture - Preliminary No Growth Day 3 05/27/17 17:33 Blood Venous Anaerobic Blood Culture - Final MRSA 05/27/17 17:33 Blood Venous Blood MRSA/MSSA (PCR) - Final Mrsa Positive S.aureus Positive 05/27/17 00:00 Urine Urine Culture - Final Escherichia Coli 05/26/17 18:10 Nasal Nasal Screen MRSA (PCR)(EMMY) - Final Mrsa Positive Assess/Plan/Problems-Billing Assessment: 71yo female PMH PAD, recent Right Hip fracture with surgery x2, Depression, Rheumatoid Arthritis, Osteoporosis, and Raynaud's phenomenon who presents with non-displaced distal right femur fracture. Patient also has chronic non-healing wounds of the lower extremities, sacral decubitis and probable osteomyelitis of the right 5th toe and now MRSA bacteremia. On vanc/cftx/bactrim - Patient Problems (1) Closed fracture of right distal femur Current Visit: Yes Status: Acute Code(s): S72.401A - UNSP FRACTURE OF LOWER END OF RIGHT FEMUR, INIT FOR CLOS FX SNOMED Code(s): 549122984 Comment: Appreciate Ortho recs. Non-Displaced fracture of distal right femur due to fall. pain control on Morphine IV, Tramadol and Tylenol. continue knee immobilizer. Xray with mild displacment from previous. plan per ortho. (2) MRSA bacteremia Current Visit: Yes Status: Acute Code(s): R78.81 - BACTEREMIA SNOMED Code( s): 63063647382712354 Comment: continue vanc. repeat Bcxs drawn. f/u ID recs. (3) Osteomyelitis Current Visit: Yes Status: Acute Code(s): M86.9 - OSTEOMYELITIS, UNSPECIFIED SNOMED Code(s): 02192134 Comment: Presumed, due to positive probe to bone and foul smell from right 5th toe. Continue Ceftriaxone and Flagyl. Now on vanc also given MRSA baceremia. Appreciate Ortho and IR input, will likely not heal and need amputation, tentatively planned , rec MRI prior. (4) Decubitus ulcer Current Visit: Yes Status: Acute Code(s): L89.90 - PRESSURE ULCER OF UNSPECIFIED SITE, UNSPECIFIED STAGE SNOMED Code(s): 469023316 Comment: Appreciate wound care consult. Multiple wounds on both legs, right worse than left with gangrenous 5th toe and probable underlying osteomyelitis. Dressed with Santyl and Vaseline Gauze. Blood cultures positive. ID was consulted. Continue Ceftriaxone and Flagyl and now vancomycin (previously bactrim,keflex). (5) Depression Current Visit: Yes Status: Acute Code(s): F32.9 - MAJOR DEPRESSIVE DISORDER , SINGLE EPISODE, UNSPECIFIED SNOMED Code(s): 46587535 Comment: Zoloft 100mg. (6) HTN (hypertension) Current Visit: Yes Status: Acute Code(s): I10 - ESSENTIAL (PRIMARY) HYPERTENSION SNOMED Code(s): 91130165 Comment: Continue atenolol. stable off Lisinopril (20mg). (7) Osteoporosis Current Visit: Yes Status: Acute Code(s): M81.0 - AGE-RELATED OSTEOPOROSIS W /O CURRENT PATHOLOGICAL FRACTURE SNOMED Code(s): 52065247 Comment: Patient has a history of osteoporosis with multiple fractures. Consider outpatient DEXA and medication treatment. Continue Vitamin D. (8) Peripheral arterial disease Current Visit: Yes Status: Acute Code(s): I73.9 - PERIPHERAL VASCULAR DISEASE, UNSPECIFIED SNOMED Code(s): 181409352 Comment: Appreciate Interventional Radiaology recs. BRANDIE, imaging upload from scar. Dr. Josue considering rigtht 5th toe for possible amputation. Patient's most recent hip operation complicated by acute limb ischemia in the setting of hypotension and Norepinephrine use. CTA with Runoff and Arterial Doppler showed B/L SFA occlusion with slight popliteal reconstitution. Given low mobility, unlikely any reprofusion surgery would yeild positive results, however, chronic wounds unlikely to heal adequately without adequate arterial flow. (9) Urinary tract infection Current Visit: Yes Status: Acute Comment: Ecoli >100K, pansensitive. continue cftx. (10) Rheumatoid arthritis Current Visit: Yes Status: Acute Code(s): M06.9 - RHEUMATOID ARTHRITIS, UNSPECIFIED SNOMED Code(s): 45059547 Comment: Patient has elevated inflammatory markers, likely due to infection. Patient has never been on a DMARD to her or her Family's recollection. Would recommend F/U with Rheumatology outpatient. (11) DVT prophylaxis Current Visit: Yes Status: Acute Code(s): PPX3539 - SNOMED Code(s): 728152412 Comment: SCDs and Heparin SubQ US negative for DVT. (12) Full code status Current Visit: Yes Status: Acute Code(s): Z78.9 - OTHER SPECIFIED HEALTH STATUS SNOMED Code(s): 058513888 Status and Disposition: Patient is admitted inpatient, will return to [facility] when medically able. surgeries planned Attending: Angus Diaz
[2017-05-31] MEDS: traMADol TAB* 50 MG PO PRN (00:04)
[2017-05-31] MEDS: Diazepam TAB(NF) 2 MG TAB - use 2.5 of 5 mg tab autosub PO PRN (05:21)
[2017-05-31] MEDS: metroNIDAZOLE IV 500 MG/100ML* 500 MG/100 ML BAG IVPB SCH ×2 (05:21→16:32)
[2017-05-31] MEDS: Heparin VIAL(*) 5000 UNITS/ML VIAL (FIVE THOUSAND) SUBCUT SCH ×3 (05:21→22:35)
[2017-05-31 06:08] LABS: EGFR Non-African American 127.1 (>60)
[2017-05-31] MEDS: Cholecalciferol TAB* 1000 UNITS PO SCH (09:01)
[2017-05-31] MEDS: Ferrous Sulfate TAB* 325 MG PO SCH ×2 (09:01→22:34)
[2017-05-31] MEDS: Senna TAB PO SCH (09:01)
[2017-05-31] MEDS: Ascorbic Acid TAB* 500 MG PO SCH (09:01)
[2017-05-31] MEDS: Sertraline* 100 MG TAB PO SCH (09:02)
[2017-05-31] MEDS: Aspirin EC Low Dose* 81 MG TAB.EC PO SCH (09:02)
[2017-05-31] MEDS: Atenolol TAB* 50 MG PO SCH (09:17)
[2017-05-31] MEDS: Collagenase 250 MG/GM OINT* 30 GM TOPICAL SCH (10:00)
[2017-05-31] MEDS ORDERED: Vancomycin Trough Check NOTE FOLLOW UP ONE (10:30)
--- NOTE | 2017-05-31 10:44 | PN ---
Progress Note - Progress Note Date of Service: 05/31/17 SOAP: Subjective: []Patient seen at bedside. She was sleeping and respond minimally to questions. She denies any RLE pain, chest pain or shortness of breath. Objective: []General: laying comfortably in bed. RLE: Tender to gentle palpation of right thigh without obvious deformity, skin breakdown or bruising. 5th toe gangrenous. Vital Signs Temp 98.6 F 05/31/17 07:21 Pulse 89 05/31/17 07:21 Resp 16 05/31/17 09:30 BP 139/58 05/31/17 07:21 Pulse Ox 100 05/31/17 09:30 Intake & Output 05/30/17 05/31/17 05/31/17 18:59 06:59 18:59 Intake Total 0 240 Balance 0 240 Intake: Oral 0 240 Other: Estimated Void Medium Medium Medium # Voids 1 1 1 Laboratory Last Values WBC 13.7 10^3/ul (3.5-10.8) H 05/28/17 05:05 RBC 3.90 10^6/ul (4.0-5.4) L 05/28/17 05:05 Hgb 11.0 g/dl (12.0-16.0) L 05/28/17 05:05 Hct 34 % (35-47) L 05/28/17 05:05 MCV 88 fL (80-97) 05/28/17 05:05 MCH 28 pg (27-31) 05/28/17 05:05 MCHC 32 g/dl (31-36) 05/28/17 05:05 RDW 16 % (10.5-15) H 05/28/17 05:05 Plt Count 400 10^3/ul (150-450) 05/28/17 05:05 MPV 8 um3 (7.4-10.4) 05/28/17 05:05 Neut % (Auto) 80.1 % (38-83) 05/28/17 05:05 Lymph % (Auto) 10.1 % (25-47) L 05/28/17 05:05 Young % (Auto) 9.1 % (1-9) H 05/28/17 05:05 Eos % (Auto) 0.3 % (0-6) 05/28/17 05:05 Baso % (Auto) 0.4 % (0-2) 05/28/17 05:05 Absolute Neuts (auto) 10.9 10^3/ul (1.5-7.7) H 05/28/17 05:05 Absolute Lymphs (auto) 1.4 10^3/ul (1.0-4.8) 05/28/17 05:05 Absolute Monos (auto) 1.2 10^3/ul (0-0.8) H 05/28/17 05:05 Absolute Eos (auto) 0 10^3/ul (0-0.6) 05/28/17 05:05 Absolute Basos (auto) 0.1 10^3/ul (0-0.2) 05/28/17 05:05 Absolute Nucleated RBC 0.01 10^3/ul 05/28/17 05:05 Nucleated RBC % 0 05/28/17 05:05 ESR 38 mm/Hr (0-40) 05/26/17 14:05 INR (Anticoag Therapy) 0.98 (0.77-1.02) 05/26/17 14:05 APTT 30.4 seconds (26.0-36.3) 05/26/17 14:05 Sodium 130 mmol/L (133-145) L 05/28/17 05:05 Potassium 4.0 mmol/L (3.5-5.0) 05/28/17 05:05 Chloride 96 mmol/L (101-111) L 05/28/17 05:05 Carbon Dioxide 28 mmol/L (22-32) 05/28/17 05:05 Anion Gap 6 mmol/L (2-11) 05/28/17 05:05 BUN 17 mg/dL (6-24) 05/31/17 05:29 Creatinine 0.48 mg/dL (0.51-0.95) L 05/31/17 05:29 Est GFR ( Amer) 163.5 (>60) 05/31/17 05:29 Est GFR (Non-Af Amer) 127.1 (>60) 05/31/17 05:29 BUN/Creatinine Ratio 32.2 (8-20) H 05/28/17 05:05 Glucose 121 mg/dL (70-100) H 05/28/17 05:05 Hemoglobin A1c 4.8 % (4.0-5.6) 05/26/17 14:05 Calcium 8.9 mg/dL (8.6-10.3) 05/28/17 05:05 Magnesium 1.9 mg/dL (1.9-2.7) 05/28/17 05:05 Total Bilirubin 0.50 mg/dL (0.2-1.0) 05/26/17 14:05 AST 16 U/L (13-39) 05/26/17 14:05 ALT 18 U/L (7-52) 05/26/17 14:05 Alkaline Phosphatase 188 U/L (34-104) H 05/26/17 14:05 C-Reactive Protein 130.07 mg/L (< 5.00) H 05/28/17 05:05 Total Protein 6.4 g/dL (6.4-8.9) 05/26/17 14:05 Albumin 3.1 g/dL (3.2-5.2) L 05/26/17 14:05 Globulin 3.3 g/dL (2-4) 05/26/17 14:05 Albumin/Globulin Ratio 0.9 (1-3) L 05/26/17 14:05 Triglycerides 85 mg/dL 05/26/17 14:05 Cholesterol 166 mg/dL 05/26/17 14:05 LDL Cholesterol 94 mg/dL 05/26/17 14:05 HDL Cholesterol 55.0 mg/dL 05/26/17 14:05 TSH 1.73 mcIU/mL (0.34-5.60) 05/26/17 14:05 Urine Color Yellow 05/27/17 00:00 Urine Appearance Turbid 05/27/17 00:00 Urine pH 6.0 (5-9) 05/27/17 00:00 Ur Specific Gray 1.012 (1.010-1.030) 05/27/17 00:00 Urine Protein 2+(100 mg/dl) (Negative) H 05/27/17 00:00 Urine Ketones Negative (Negative) 05/27/17 00:00 Urine Blood 1+ (Negative) H 05/27/17 00:00 Urine Nitrate Positive (Negative) H 05/27/17 00:00 Urine Bilirubin Negative (Negative) 05/27/17 00:00 Urine Urobilinogen Negative (Negative) 05/27/17 00:00 Ur Leukocyte Esterase 2+ (Negative) H 05/27/17 00:00 Urine WBC (Auto) 3+(>20/hpf) (Absent) H 05/27/17 00:00 Urine RBC (Auto) 3+(>10/hpf) (Absent) H 05/27/17 00:00 Urine Bacteria 2+ (Absent) H 05/27/17 00:00 Urine Glucose Negative (Negative) 05/27/17 00:00 Urine Ascorbic Acid * (Negative) H 05/27/17 00:00 Assessment: []Right 5th toe gangrene: likely from underlying peripheral vascular disease Right femur fx being treated non-op by Dr Parr. Plan: [] NPO NWB RLE Right foot MRI to assess for underlying deep infection prior to surgery - Spoke with imaging, will fit her in prior to Op time. OR today with Dr Feliciano for right 5th toe amputation abx per ID
--- NOTE | 2017-05-31 14:00 | RAD ---
Indication: Open wound RIGHT fifth toe. Preoperative assessment. Comparison: May 30, 2017 radiographs. Technique: Noncontrast MRI RIGHT foot. Networka 1.5 Elizabeth [id number] with GEM suite. Report: There is osteolysis of the middle and distal phalanges of the fifth toe. At the proximal phalanx there is diffuse increased T2 signal and partial loss of normal T1 marrow hyperintensity consistent with osteomyelitis. There is soft tissue edema about the fifth toe without a visualized loculated soft tissue plane abscess collection. Additional infiltrative soft tissue edema throughout the subcutaneous tissue plane and intrinsic musculature of the foot. Cellulitis and myositis should be considered. IMPRESSION: Osteomyelitis at the fifth toe with deanna osteolysis at the distal middle phalanges and marrow change consistent with osteomyelitis at the proximal phalanx. Superficial and deep soft tissue edema which may reflect cellulitis and myositis without evidence for a loculated soft tissue plane abscess collection.
[2017-05-31] MEDS: Vancomycin(*) 1,000 MG in NS 0.9% 250 ML* 250 ML IVPB SCH ×2 (14:34→23:20)
[2017-05-31] MEDS: Morphine INJ* 2 MG/ML 1 ML SYRINGE (TWO MG - NEW SYRINGE VERSION) IV PRN ×3 (16:29→22:34)
[2017-05-31] MEDS ORDERED: metroNIDAZOLE IV 500 MG/100ML* 500 MG/100 ML BAG IVPB SCH (17:00)
--- NOTE | 2017-05-31 17:38 | PN ---
Subjective Date of Service: 05/31/17 Interval History: MRI foot with clear osteomyelitis. No OR today(cancelled), likely . Pt more comfortable appearing on exam today. Repeat blood cultures negative. Family History: Unchanged from Admission Social History: Unchanged from Admission Past Medical History: Unchanged from Admission Objective Active Medications: Acetaminophen (Tylenol Tab*) 650 mg PO Q6H PRN PRN Reason: PAIN Last Admin: 05/30/17 19:58 Dose: 650 mg Albuterol/Ipratropium (Duoneb (Albuterol 2.5 Mg/Ipratropium 0.5 Mg)) 1 neb INH Q6H PRN PRN Reason: SOB/WHEEZING Ascorbic Acid (Vitamin C Tab*) 500 mg PO DAILY [facility] Last Admin: 05/31/17 09:01 Dose: Not Given Aspirin (Aspirin Ec Low Dose*) 81 mg PO DAILY [facility] Last Admin: 05/31/17 09:02 Dose: Not Given Atenolol (Tenormin Tab*) 50 mg PO DAILY [facility] Last Admin: 05/31/17 09:17 Dose: 50 mg Atorvastatin Calcium (Lipitor*) 20 mg PO 1700 [facility] Last Admin: 05/30/17 16:03 Dose: 20 mg Cholecalciferol (Vitamin D Tab*) 2,000 units PO DAILY [facility] Last Admin: 05/31/17 09:01 Dose: Not Given Collagenase (Santyl 250 Mg/Gm Oint*) 1 applic TOPICAL .SEE INSTRUCTIONS [facility] Last Admin: 05/31/17 10:00 Dose: 1 applic Diazepam (Valium Tab(*)) 2 mg PO Q8H PRN PRN Reason: muscle spasm Last Admin: 05/31/17 05:21 Dose: 2 mg Docusate Sodium (Colace Cap*) 200 mg PO BEDTIME [facility] Last Admin: 05/30/17 19:57 Dose: 200 mg Ferrous Sulfate (Ferrous Sulfate Tab*) 325 mg PO BID [facility] Last Admin: 05/31/17 09:01 Dose: Not Given Heparin Sodium (Porcine) (Heparin Vial(*)) 5,000 units SUBCUT Q8HR [facility] Last Admin: 05/31/17 13:58 Dose: Not Given Ceftriaxone Sodium 1 gm/ (Sodium Chloride) 50 mls @ 200 mls/hr IVPB Q24H [facility] Last Admin: 05/30/17 16:03 Dose: 200 mls/hr Vancomycin HCl 1,000 mg/ (Sodium Chloride) 250 mls @ 166.667 mls/hr IVPB Q12H [facility] Last Admin: 05/31/17 14:34 Dose: 166.667 mls/hr Metronidazole/Sodium Chloride (Flagyl 500 Mg Ivpb*) 500 mg in 100 mls @ 100 mls /hr IVPB 0100,0900,1700 [facility] Morphine Sulfate (Morphine Inj (Syringe)*) 2 mg IV Q2H PRN PRN Reason: PAIN - MODERATE TO SEVERE Last Admin: 05/31/17 16:29 Dose: 2 mg Ondansetron HCl (Zofran Inj*) 4 mg IV Q4H PRN PRN Reason: NAUSEA Last Admin: 05/28/17 13:41 Dose: 4 mg Pharmacy Consult (Vancomycin Per Pharmacy*) 1 note FOLLOW UP . PRN PRN Reason: PER PROTOCOL Senna (Senokot Tab*) 1 tab PO DAILY [facility] Last Admin: 05/31/17 09:01 Dose: Not Given Sertraline HCl (Zoloft*) 100 mg PO DAILY [facility] Last Admin: 05/31/17 09:02 Dose: Not Given Tramadol HCl (Ultram*) 50 mg PO Q6H PRN PRN Reason: PAIN - MILD TO MODERATE Last Admin: 05/31/17 00:04 Dose: 50 mg Vital Signs - 8 hr 05/31/17 05/31/17 05/31/17 11:04 15:30 16:00 Temperature 96.8 F 97.4 F Pulse Rate 71 73 Respiratory 20 16 Rate Blood Pressure 134/60 139/61 (mmHg) O2 Sat by Pulse 100 100 100 Oximetry 05/31/17 16:29 Temperature Pulse Rate Respiratory 16 Rate Blood Pressure (mmHg) O2 Sat by Pulse Oximetry Oxygen Devices in Use Now: Nasal Cannula Appearance: chronically ill appearing. Eyes: No Scleral Icterus, PERRLA Ears/Nose/Mouth/Throat: NL Teeth, Lips, Gums, Mucous Membranes Moist Neck: NL Appearance and Movements; NL JVP Respiratory: Symmetrical Chest Expansion and Respiratory Effort, Clear to Auscultation Cardiovascular: NL Sounds; No Murmurs; No JVD Abdominal: NL Sounds; No Tenderness; No Distention, No Hepatosplenomegaly Extremities: - - immobilizer on right knee, RE wrapped lowere right leg. 5th toe necrosis. Neurological: - - oriented to name. Result Diagrams: 05/28/17 05:05 05/31/17 05:29 Additional Lab and Data: Laboratory Results - last 24 hr 05/31/17 05/31/17 05:29 10:57 BUN 17 Creatinine 0.48 L Est GFR ( Amer) 163.5 Est GFR (Non-Af Amer) 127.1 Vancomycin Trough 14.4 Microbiology and Other Data: Microbiology 05/27/17 17:33 Blood Venous Aerobic Blood Culture - Preliminary No Growth Day 4 05/27/17 17:33 Blood Venous Anaerobic Blood Culture - Final MRSA 05/27/17 17:33 Blood Venous Blood MRSA/MSSA (PCR) - Final Mrsa Positive S.aureus Positive 05/30/17 04:57 Blood Venous Aerobic Blood Culture - Preliminary No Growth Day 1 05/30/17 04:57 Blood Venous Anaerobic Blood Culture - Preliminary No Growth Day 1 05/30/17 04:57 Blood Venous Aerobic Blood Culture - Preliminary No Growth Day 1 05/30/17 04:57 Blood Venous Anaerobic Blood Culture - Preliminary No Growth Day 1 05/27/17 00:00 Urine Urine Culture - Final Escherichia Coli 05/26/17 18:10 Nasal Nasal Screen MRSA (PCR)(EMMY) - Final Mrsa Positive Assess/Plan/Problems-Billing Assessment: 71yo female PMH PAD, recent Right Hip fracture with surgery x2, Depression, Rheumatoid Arthritis, Osteoporosis, and Raynaud's phenomenon who presents with non-displaced distal right femur fracture. Patient also has chronic non-healing wounds of the lower extremities, sacral decubitis and probable osteomyelitis of the right 5th toe and now MRSA bacteremia. On vanc/cftx/bactrim - Patient Problems (1) Closed fracture of right distal femur Current Visit: Yes Status: Acute Code(s): S72.401A - UNSP FRACTURE OF LOWER END OF RIGHT FEMUR, INIT FOR CLOS FX SNOMED Code(s): 791048347 Comment: Appreciate Ortho recs. Non-Displaced fracture of distal right femur due to fall. pain control on Morphine IV, Tramadol and Tylenol. continue knee immobilizer. Xray with mild displacment from previous. plan per ortho. (2) MRSA bacteremia Current Visit: Yes Status: Acute Code(s): R78.81 - BACTEREMIA SNOMED Code( s): 54869965741295465 Comment: continue vanc. repeat Bcxs drawn. f/u ID recs. (3) Osteomyelitis Current Visit: Yes Status: Acute Code(s): M86.9 - OSTEOMYELITIS, UNSPECIFIED SNOMED Code(s): 51021738 Comment: Confirmed on MRI foot. Also probed to bone. Continue Ceftriaxone (day 5) and Flagyl. Now on vanc also given MRSA baceremia. f/u ID recs Appreciate Ortho and IR input, will likely not heal and need amputation, tentatively planned (4) Decubitus ulcer Current Visit: Yes Status: Acute Code(s): L89.90 - PRESSURE ULCER OF UNSPECIFIED SITE, UNSPECIFIED STAGE SNOMED Code(s): 596945724 Comment: Appreciate wound care consult. Multiple wounds on both legs, right worse than left with gangrenous 5th toe and probable underlying osteomyelitis. Dressed with Santyl and Vaseline Gauze. Blood cultures positive. ID was consulted. Continue Ceftriaxone and Flagyl and now vancomycin (previously bactrim,keflex). (5) Depression Current Visit: Yes Status: Acute Code(s): F32.9 - MAJOR DEPRESSIVE DISORDER , SINGLE EPISODE, UNSPECIFIED SNOMED Code(s): 56487251 Comment: Zoloft 100mg. (6) HTN (hypertension) Current Visit: Yes Status: Acute Code(s): I10 - ESSENTIAL (PRIMARY) HYPERTENSION SNOMED Code(s): 74170528 Comment: Continue atenolol. stable off Lisinopril (20mg). (7) Osteoporosis Current Visit: Yes Status: Acute Code(s): M81.0 - AGE-RELATED OSTEOPOROSIS W /O CURRENT PATHOLOGICAL FRACTURE SNOMED Code(s): 14525480 Comment: Patient has a history of osteoporosis with multiple fractures. Consider outpatient DEXA and medication treatment. Continue Vitamin D. (8) Peripheral arterial disease Current Visit: Yes Status: Acute Code(s): I73.9 - PERIPHERAL VASCULAR DISEASE, UNSPECIFIED SNOMED Code(s): 187797452 Comment: Appreciate Interventional Radiaology recs. BRANDIE, imaging upload from [facility]. Dr. Josue considering rigtht 5th toe for possible amputation this Patient's most recent hip operation complicated by acute limb ischemia in the setting of hypotension and Norepinephrine use. CTA with Runoff and Arterial Doppler showed B/L SFA occlusion with slight popliteal reconstitution. Given low mobility, unlikely any reprofusion surgery would yeild positive results, however, chronic wounds unlikely to heal adequately without adequate arterial flow. (9) Urinary tract infection Current Visit: Yes Status: Acute Comment: Ecoli >100K, pansensitive. continue cftx (day 5) (10) Rheumatoid arthritis Current Visit: Yes Status: Acute Code(s): M06.9 - RHEUMATOID ARTHRITIS, UNSPECIFIED SNOMED Code(s): 98695832 Comment: Patient has elevated inflammatory markers, likely due to infection. Patient has never been on a DMARD to her or her Family's recollection. Would recommend F/U with Rheumatology outpatient. (11) DVT prophylaxis Current Visit: Yes Status: Acute Code(s): UZF4010 - SNOMED Code(s): 784214669 Comment: SCDs and Heparin SubQ US negative for DVT. (12) Full code status Current Visit: Yes Status: Acute Code(s): Z78.9 - OTHER SPECIFIED HEALTH STATUS SNOMED Code(s): 704920875 Status and Disposition: Patient is admitted inpatient, will return to [facility] when medically able. surgeries planned Attending: Angus Diaz
[2017-05-31] MEDS: Atorvastatin* 20 MG TAB PO SCH (18:06)
[2017-05-31] MEDS: cefTRIAXone(*) 1 GM in NS 0.9% 50 ML* 50 ML IVPB SCH (19:27)
[2017-05-31] MEDS ORDERED: Magnesium Hydroxide LIQ* 30 ML UDC PO ONE (21:26)
[2017-05-31] MEDS: Docusate CAP* 100 MG PO SCH (22:34)
[2017-06-01] MEDS: metroNIDAZOLE IV 500 MG/100ML* 500 MG/100 ML BAG IVPB SCH ×3 (04:06→21:13)
[2017-06-01] MEDS: Heparin VIAL(*) 5000 UNITS/ML VIAL (FIVE THOUSAND) SUBCUT SCH ×2 (05:48→14:55)
[2017-06-01 06:46] LABS: EGFR Non-African American 152.5 (>60)
[2017-06-01 06:56] LABS: ABS Basophils 0 10^3/ul (0-0.2); ABS Eosinophils 0 10^3/ul (0-0.6); ABS Lymphocytes 2.5 10^3/ul (1.0-4.8); ABS Monocytes 1.3 10^3/ul (0-0.8); ABS Neutrophils 8.2 10^3/ul (1.5-7.7); ABS Nucleated RBC 0.01 10^3/ul; Eosinophil % 0.2 % (0-6); Hematocrit 35 % (35-47); Hemoglobin 11.4 g/dl (12.0-16.0); Lymphocyte % 20.8 % (25-47); Mean Corpuscular HGB Conc 32 g/dl (31-36); Mean Corpuscular Hemoglobin 28 pg (27-31); Mean Corpuscular Volume 87 fL (80-97); Mean Platelet Volume 8 um3 (7.4-10.4); Nucleated Red Blood Cells % 0.1; Platelet Count 439 10^3/ul (150-450); Red Blood Count 4.06 10^6/ul (4.0-5.4); Red Cell Distribution Width 16 % (10.5-15)
[2017-06-01] MEDS: Senna TAB PO SCH (11:19)
[2017-06-01] MEDS: Cholecalciferol TAB* 1000 UNITS PO SCH (11:19)
[2017-06-01] MEDS: traMADol TAB* 50 MG PO PRN ×2 (11:20→19:04)
[2017-06-01] MEDS: Vancomycin(*) 1,000 MG in NS 0.9% 250 ML* 250 ML IVPB SCH ×2 (11:20→23:21)
[2017-06-01] MEDS: Sertraline* 100 MG TAB PO SCH (11:20)
[2017-06-01] MEDS: Atenolol TAB* 50 MG PO SCH (11:20)
[2017-06-01] MEDS: Ascorbic Acid TAB* 500 MG PO SCH (11:20)
[2017-06-01] MEDS: Ferrous Sulfate TAB* 325 MG PO SCH ×2 (11:20→21:16)
[2017-06-01] MEDS: Aspirin EC Low Dose* 81 MG TAB.EC PO SCH (11:20)
[2017-06-01] MEDS ORDERED: Buffered Lidocaine 0.9% SYRIN* 5 ML/SYR SYRINGE INTRADERM ONE (13:07)
--- NOTE | 2017-06-01 15:49 | PN ---
Progress Note - Progress Note Date of Service: 06/01/17 SOAP: Subjective: []Patient seen at bedside. She confirms RLE pain, localized to the knee. She understands that she may go to surgery tomorrow for partial amputation of her right foot. Objective: [] Vital Signs Temp 98.8 F 06/01/17 11:32 Pulse 87 06/01/17 11:32 Resp 26 06/01/17 15:00 BP 158/63 06/01/17 11:32 Pulse Ox 98 06/01/17 11:32 Intake & Output 05/31/17 06/01/17 06/01/17 18:59 06:59 18:59 Intake Total 377 50 Output Total 0 Balance 377 50 Weight 110 lb Intake: Oral 377 50 Output: Urine 0 Other: Estimated Void Large Medium # Voids 1 1 Laboratory Last Values WBC 12.0 10^3/ul (3.5-10.8) H 06/01/17 05:23 RBC 4.06 10^6/ul (4.0-5.4) 06/01/17 05:23 Hgb 11.4 g/dl (12.0-16.0) L 06/01/17 05:23 Hct 35 % (35-47) 06/01/17 05:23 MCV 87 fL (80-97) 06/01/17 05:23 MCH 28 pg (27-31) 06/01/17 05:23 MCHC 32 g/dl (31-36) 06/01/17 05:23 RDW 16 % (10.5-15) H 06/01/17 05:23 Plt Count 439 10^3/ul (150-450) 06/01/17 05:23 MPV 8 um3 (7.4-10.4) 06/01/17 05:23 Neut % (Auto) 68.1 % (38-83) 06/01/17 05:23 Lymph % (Auto) 20.8 % (25-47) L 06/01/17 05:23 [place] % (Auto) 10.5 % (1-9) H 06/01/17 05:23 Eos % (Auto) 0.2 % (0-6) 06/01/17 05:23 Baso % (Auto) 0.4 % (0-2) 06/01/17 05:23 Absolute Neuts (auto) 8.2 10^3/ul (1.5-7.7) H 06/01/17 05:23 Absolute Lymphs (auto) 2.5 10^3/ul (1.0-4.8) 06/01/17 05:23 Absolute Monos (auto) 1.3 10^3/ul (0-0.8) H 06/01/17 05:23 Absolute Eos (auto) 0 10^3/ul (0-0.6) 06/01/17 05:23 Absolute Basos (auto) 0 10^3/ul (0-0.2) 06/01/17 05:23 Absolute Nucleated RBC 0.01 10^3/ul 06/01/17 05:23 Nucleated RBC % 0.1 06/01/17 05:23 ESR 38 mm/Hr (0-40) 05/26/17 14:05 INR (Anticoag Therapy) 0.98 (0.77-1.02) 05/26/17 14:05 APTT 30.4 seconds (26.0-36.3) 05/26/17 14:05 Sodium 131 mmol/L (133-145) L 06/01/17 05:23 Potassium 3.9 mmol/L (3.5-5.0) 06/01/17 05:23 Chloride 97 mmol/L (101-111) L 06/01/17 05:23 Carbon Dioxide 29 mmol/L (22-32) 06/01/17 05:23 Anion Gap 5 mmol/L (2-11) 06/01/17 05:23 BUN 15 mg/dL (6-24) 06/01/17 05:23 Creatinine 0.41 mg/dL (0.51-0.95) L 06/01/17 05:23 Est GFR ( Amer) 196.1 (>60) 06/01/17 05:23 Est GFR (Non-Af Amer) 152.5 (>60) 06/01/17 05:23 BUN/Creatinine Ratio 36.6 (8-20) H 06/01/17 05:23 Glucose 111 mg/dL (70-100) H 06/01/17 05:23 Hemoglobin A1c 4.8 % (4.0-5.6) 05/26/17 14:05 Calcium 8.7 mg/dL (8.6-10.3) 06/01/17 05:23 Magnesium 1.9 mg/dL (1.9-2.7) 05/28/17 05:05 Total Bilirubin 0.50 mg/dL (0.2-1.0) 05/26/17 14:05 AST 16 U/L (13-39) 05/26/17 14:05 ALT 18 U/L (7-52) 05/26/17 14:05 Alkaline Phosphatase 188 U/L (34-104) H 05/26/17 14:05 C-Reactive Protein 130.07 mg/L (< 5.00) H 05/28/17 05:05 Total Protein 6.4 g/dL (6.4-8.9) 05/26/17 14:05 Albumin 3.1 g/dL (3.2-5.2) L 05/26/17 14:05 Globulin 3.3 g/dL (2-4) 05/26/17 14:05 Albumin/Globulin Ratio 0.9 (1-3) L 05/26/17 14:05 Triglycerides 85 mg/dL 05/26/17 14:05 Cholesterol 166 mg/dL 05/26/17 14:05 LDL Cholesterol 94 mg/dL 05/26/17 14:05 HDL Cholesterol 55.0 mg/dL 05/26/17 14:05 TSH 1.73 mcIU/mL (0.34-5.60) 05/26/17 14:05 Urine Color Yellow 05/27/17 00:00 Urine Appearance Turbid 05/27/17 00:00 Urine pH 6.0 (5-9) 05/27/17 00:00 Ur Specific [place] 1.012 (1.010-1.030) 05/27/17 00:00 Urine Protein 2+(100 mg/dl) (Negative) H 05/27/17 00:00 Urine Ketones Negative (Negative) 05/27/17 00:00 Urine Blood 1+ (Negative) H 05/27/17 00:00 Urine Nitrate Positive (Negative) H 05/27/17 00:00 Urine Bilirubin Negative (Negative) 05/27/17 00:00 Urine Urobilinogen Negative (Negative) 05/27/17 00:00 Ur Leukocyte Esterase 2+ (Negative) H 05/27/17 00:00 Urine WBC (Auto) 3+(>20/hpf) (Absent) H 05/27/17 00:00 Urine RBC (Auto) 3+(>10/hpf) (Absent) H 05/27/17 00:00 Urine Bacteria 2+ (Absent) H 05/27/17 00:00 Urine Glucose Negative (Negative) 05/27/17 00:00 Urine Ascorbic Acid * (Negative) H 05/27/17 00:00 Vancomycin Trough 14.4 mcg/mL 05/31/17 10:57 General: Calm, cooperative. Laying comfortably in bed. RLE: foot and ankle wrapped in cait. Lacks sensation to exposed toes. Right knee with mild effusion, no erythema. Right knee and upper leg are mildly diffusely tender. No ROM knee due to pain. Calf supple and nontender. Assessment: []Right 5th toe gangrene: likely from underlying peripheral vascular disease Right femur fx being treated non-op by Dr Parr. Plan: []NWB RLE abx per ID OR tomorrow with Dr. Josue
[2017-06-01] MEDS: Atorvastatin* 20 MG TAB PO SCH (16:52)
[2017-06-01] MEDS: cefTRIAXone(*) 1 GM in NS 0.9% 50 ML* 50 ML IVPB SCH (16:52)
--- NOTE | 2017-06-01 17:37 | PN ---
Subjective Date of Service: 06/01/17 Interval History: Afebrile, toe looks worse. repeat blood culture negative. Tachypneic episodes. no IV morphine since PM. Family History: Unchanged from Admission Social History: Unchanged from Admission Past Medical History: Unchanged from Admission Objective Active Medications: Acetaminophen (Tylenol Tab*) 650 mg PO Q6H PRN PRN Reason: PAIN Last Admin: 05/30/17 19:58 Dose: 650 mg Albuterol/Ipratropium (Duoneb (Albuterol 2.5 Mg/Ipratropium 0.5 Mg)) 1 neb INH Q6H PRN PRN Reason: SOB/WHEEZING Ascorbic Acid (Vitamin C Tab*) 500 mg PO DAILY [facility] Last Admin: 06/01/17 11:20 Dose: 500 mg Aspirin (Aspirin Ec Low Dose*) 81 mg PO DAILY [facility] Last Admin: 06/01/17 11:20 Dose: 81 mg Atenolol (Tenormin Tab*) 50 mg PO DAILY [facility] Last Admin: 06/01/17 11:20 Dose: 50 mg Atorvastatin Calcium (Lipitor*) 20 mg PO 1700 [facility] Last Admin: 06/01/17 16:52 Dose: 20 mg Cholecalciferol (Vitamin D Tab*) 2,000 units PO DAILY [facility] Last Admin: 06/01/17 11:19 Dose: 2,000 units Collagenase (Santyl 250 Mg/Gm Oint*) 1 applic TOPICAL .SEE INSTRUCTIONS [facility] Last Admin: 05/31/17 10:00 Dose: 1 applic Diazepam (Valium Tab(*)) 2 mg PO Q8H PRN PRN Reason: muscle spasm Last Admin: 05/31/17 05:21 Dose: 2 mg Docusate Sodium (Colace Cap*) 200 mg PO BEDTIME [facility] Last Admin: 05/31/17 22:34 Dose: 200 mg Famotidine (Pepcid Iv*) 20 mg IV ONCE ONE Stop: 06/02/17 12:01 Ferrous Sulfate (Ferrous Sulfate Tab*) 325 mg PO BID [facility] Last Admin: 06/01/17 11:20 Dose: 325 mg Heparin Sodium (Porcine) (Heparin Vial(*)) 5,000 units SUBCUT Q8HR [facility] Ceftriaxone Sodium 1 gm/ (Sodium Chloride) 50 mls @ 200 mls/hr IVPB Q24H [facility] Last Admin: 06/01/17 16:52 Dose: 200 mls/hr Vancomycin HCl 1,000 mg/ (Sodium Chloride) 250 mls @ 166.667 mls/hr IVPB Q12H [facility] Last Admin: 06/01/17 11:20 Dose: 166.667 mls/hr Metronidazole/Sodium Chloride (Flagyl 500 Mg Ivpb*) 500 mg in 100 mls @ 100 mls /hr IVPB 0400,1200,2000 [facility] Last Admin: 06/01/17 14:55 Dose: 100 mls/hr Lactated Ringer's (Lactated Ringers 1000 Ml Bag*) 1,000 mls @ 125 mls/hr IV PER RATE [facility] Morphine Sulfate (Morphine Inj (Syringe)*) 2 mg IV Q2H PRN PRN Reason: PAIN - MODERATE TO SEVERE Last Admin: 05/31/17 22:34 Dose: 2 mg Ondansetron HCl (Zofran Inj*) 4 mg IV Q4H PRN PRN Reason: NAUSEA Last Admin: 05/28/17 13:41 Dose: 4 mg Pharmacy Consult (Vancomycin Per Pharmacy*) 1 note FOLLOW UP . PRN PRN Reason: PER PROTOCOL Senna (Senokot Tab*) 1 tab PO DAILY [facility] Last Admin: 06/01/17 11:19 Dose: 1 tab Sertraline HCl (Zoloft*) 100 mg PO DAILY [facility] Last Admin: 06/01/17 11:20 Dose: 100 mg Tramadol HCl (Ultram*) 50 mg PO Q6H PRN PRN Reason: PAIN - MILD TO MODERATE Last Admin: 06/01/17 11:20 Dose: 50 mg Vital Signs - 8 hr 06/01/17 06/01/17 06/01/17 11:20 11:32 12:01 Temperature 98.8 F Pulse Rate 87 Respiratory 16 36 Rate Blood Pressure 158/63 (mmHg) O2 Sat by Pulse 98 Oximetry 06/01/17 06/01/17 15:00 17:24 Temperature Pulse Rate 73 Respiratory 26 16 Rate Blood Pressure (mmHg) O2 Sat by Pulse 97 Oximetry Oxygen Devices in Use Now: Nasal Cannula Appearance: chronically ill appearing. Eyes: No Scleral Icterus, PERRLA Ears/Nose/Mouth/Throat: NL Teeth, Lips, Gums, Mucous Membranes Moist Neck: NL Appearance and Movements; NL JVP, Trachea Midline Respiratory: - - anteriorly CTAB but tachypenic Cardiovascular: NL Sounds; No Murmurs; No JVD, RRR Abdominal: NL Sounds; No Tenderness; No Distention Extremities: - - 5th right toe necrosis extending superiorly. anterior right calf wound ulceration. right knee swelling. Skin: - Neurological: Alert and Oriented x 3, - Result Diagrams: 06/01/17 05:23 06/01/17 05:23 Additional Lab and Data: Laboratory Results - last 24 hr 06/01/17 06/01/17 05:23 05:23 WBC 12.0 H RBC 4.06 Hgb 11.4 L Hct 35 MCV 87 MCH 28 MCHC 32 RDW 16 H Plt Count 439 MPV 8 Neut % (Auto) 68.1 Lymph % (Auto) 20.8 L [place] % (Auto) 10.5 H Eos % (Auto) 0.2 Baso % (Auto) 0.4 Absolute Neuts (auto) 8.2 H Absolute Lymphs (auto) 2.5 Absolute Monos (auto) 1.3 H Absolute Eos (auto) 0 Absolute Basos (auto) 0 Absolute Nucleated RBC 0.01 Nucleated RBC % 0.1 Sodium 131 L Potassium 3.9 Chloride 97 L Carbon Dioxide 29 Anion Gap 5 BUN 15 Creatinine 0.41 L Est GFR ( Amer) 196.1 Est GFR (Non-Af Amer) 152.5 BUN/Creatinine Ratio 36.6 H Glucose 111 H Calcium 8.7 Microbiology and Other Data: Microbiology 05/27/17 17:33 Blood Venous Aerobic Blood Culture - Final No Growth Day 5 05/27/17 17:33 Blood Venous Anaerobic Blood Culture - Final MRSA 05/27/17 17:33 Blood Venous Blood MRSA/MSSA (PCR) - Final Mrsa Positive S.aureus Positive 05/30/17 04:57 Blood Venous Aerobic Blood Culture - Preliminary No Growth Day 2 05/30/17 04:57 Blood Venous Anaerobic Blood Culture - Preliminary No Growth Day 2 05/30/17 04:57 Blood Venous Aerobic Blood Culture - Preliminary No Growth Day 2 05/30/17 04:57 Blood Venous Anaerobic Blood Culture - Preliminary No Growth Day 2 05/27/17 00:00 Urine Urine Culture - Final Escherichia Coli 05/26/17 18:10 Nasal Nasal Screen MRSA (PCR)(EMMY) - Final Mrsa Positive Assess/Plan/Problems-Billing Assessment: 71yo female PMH PAD, recent Right Hip fracture with surgery x2, Depression, Rheumatoid Arthritis, Osteoporosis, and Raynaud's phenomenon who presents with non-displaced distal right femur fracture. Patient also has chronic non-healing wounds of the lower extremities, sacral decubitis and osteomyelitis of the right 5th toe c/b MRSA bacteremia. On vanc/cftx/bactrim. planned OR 06/02. - Patient Problems (1) Closed fracture of right distal femur Current Visit: Yes Status: Acute Code(s): S72.401A - UNSP FRACTURE OF LOWER END OF RIGHT FEMUR, INIT FOR CLOS FX SNOMED Code(s): 007446654 Comment: Appreciate Ortho recs. Non-Displaced fracture of distal right femur due to fall. pain control on Morphine IV, Tramadol and Tylenol. continue knee immobilizer. Xray with mild displacment from previous. plan per ortho. (2) MRSA bacteremia Current Visit: Yes Status: Acute Code(s): R78.81 - BACTEREMIA SNOMED Code( s): 87074796523624985 Comment: continue vanc. repeat Bcxs NGTD. f/u ID recs. (3) Osteomyelitis Current Visit: Yes Status: Acute Code(s): M86.9 - OSTEOMYELITIS, UNSPECIFIED SNOMED Code(s): 20995686 Comment: Confirmed on MRI foot. Also probed to bone. Continue Ceftriaxone (day 6) and Flagyl. Now on vanc also given MRSA baceremia. f/u ID recs Appreciate Ortho and IR input, will likely not heal and need amputation, tentatively planned . now with clear progression of necrosis superiorly. (4) Decubitus ulcer Current Visit: Yes Status: Acute Code(s): L89.90 - PRESSURE ULCER OF UNSPECIFIED SITE, UNSPECIFIED STAGE SNOMED Code(s): 955252275 Comment: Appreciate wound care consult. Multiple wounds on both legs, right worse than left with gangrenous 5th toe and probable underlying osteomyelitis. Dressed with Santyl and Vaseline Gauze. Blood cultures positive. ID was consulted. Continue Ceftriaxone and Flagyl and now vancomycin (previously bactrim,keflex). (5) Depression Current Visit: Yes Status: Acute Code(s): F32.9 - MAJOR DEPRESSIVE DISORDER , SINGLE EPISODE, UNSPECIFIED SNOMED Code(s): 64848659 Comment: Zoloft 100mg. (6) HTN (hypertension) Current Visit: Yes Status: Acute Code(s): I10 - ESSENTIAL (PRIMARY) HYPERTENSION SNOMED Code(s): 59287151 Comment: Continue atenolol. stable off Lisinopril (20mg). (7) Osteoporosis Current Visit: Yes Status: Acute Code(s): M81.0 - AGE-RELATED OSTEOPOROSIS W /O CURRENT PATHOLOGICAL FRACTURE SNOMED Code(s): 69379240 Comment: Patient has a history of osteoporosis with multiple fractures. Consider outpatient DEXA and medication treatment. Continue Vitamin D. (8) Peripheral arterial disease Current Visit: Yes Status: Acute Code(s): I73.9 - PERIPHERAL VASCULAR DISEASE, UNSPECIFIED SNOMED Code(s): 312534530 Comment: Appreciate Interventional Radiaology recs. BRANDIE, imaging upload from [facility]. Dr. Josue considering rigtht 5th toe for possible amputation this Patient's most recent hip operation complicated by acute limb ischemia in the setting of hypotension and Norepinephrine use. CTA with Runoff and Arterial Doppler showed B/L SFA occlusion with slight popliteal reconstitution. Given low mobility, unlikely any reprofusion surgery would yield positive results, however, chronic wounds unlikely to heal adequately without adequate arterial flow. (9) Urinary tract infection Current Visit: Yes Status: Acute Comment: Ecoli >100K, pansensitive. continue cftx (day 6) (10) Rheumatoid arthritis Current Visit: Yes Status: Acute Code(s): M06.9 - RHEUMATOID ARTHRITIS, UNSPECIFIED SNOMED Code(s): 47739232 Comment: Patient has elevated inflammatory markers, likely due to infection. Patient has never been on a DMARD to her or her Family's recollection. Would recommend F/U with Rheumatology outpatient. (11) DVT prophylaxis Current Visit: Yes Status: Acute Code(s): YUU6735 - SNOMED Code(s): 459318759 Comment: SCDs and Heparin SubQ US negative for DVT. (12) Full code status Current Visit: Yes Status: Acute Code(s): Z78.9 - OTHER SPECIFIED HEALTH STATUS SNOMED Code(s): 498776355 Status and Disposition: Patient is admitted inpatient, will return to [facility] when medically able. surgeries planned Attending: Angus Diaz
[2017-06-01] MEDS: Docusate CAP* 100 MG PO SCH (21:26)
[2017-06-02] MEDS: metroNIDAZOLE IV 500 MG/100ML* 500 MG/100 ML BAG IVPB SCH ×3 (04:02→20:37)
[2017-06-02 09:05] LABS: ABS Basophils 0.1 10^3/ul (0-0.2); ABS Eosinophils 0 10^3/ul (0-0.6); ABS Lymphocytes 2.9 10^3/ul (1.0-4.8); ABS Neutrophils 7.4 10^3/ul (1.5-7.7); ABS Nucleated RBC 0.01 10^3/ul; Eosinophil % 0.3 % (0-6); Hematocrit 35 % (35-47); Hemoglobin 11.3 g/dl (12.0-16.0); Lymphocyte % 25.2 % (25-47); Mean Corpuscular HGB Conc 32 g/dl (31-36); Mean Corpuscular Hemoglobin 28 pg (27-31); Mean Corpuscular Volume 87 fL (80-97); Mean Platelet Volume 8 um3 (7.4-10.4); Nucleated Red Blood Cells % 0.1; Platelet Count 442 10^3/ul (150-450); Red Blood Count 4.03 10^6/ul (4.0-5.4); Red Cell Distribution Width 16 % (10.5-15); White Blood Count 11.4 10^3/ul (3.5-10.8)
[2017-06-02 09:23] LABS: EGFR Non-African American 156.9 (>60)
[2017-06-02] MEDS: Atenolol TAB* 50 MG PO SCH (09:25)
[2017-06-02] MEDS: Aspirin EC Low Dose* 81 MG TAB.EC PO SCH (09:27)
[2017-06-02] MEDS: Ascorbic Acid TAB* 500 MG PO SCH (09:27)
[2017-06-02] MEDS: Senna TAB PO SCH (09:27)
[2017-06-02] MEDS: Ferrous Sulfate TAB* 325 MG PO SCH ×2 (09:27→20:37)
[2017-06-02] MEDS: Cholecalciferol TAB* 1000 UNITS PO SCH (09:27)
[2017-06-02] MEDS: Sertraline* 100 MG TAB PO SCH (09:27)
[2017-06-02] MEDS: Vancomycin(*) 1,000 MG in NS 0.9% 250 ML* 250 ML IVPB SCH ×2 (10:51→22:51)
[2017-06-02] MEDS ORDERED: Famotidine IV* 10 MG/ML 2 ML (20 mg) IV ONE (12:00)
--- NOTE | 2017-06-02 14:13 | PN ---
Subjective Date of Service: 06/02/17 Interval History: Pt more drowsy today. Following commands MANZO but not speaking. Nods head yes when asking if pain to palpation of right knee. Adjusts her glasses back on her face when removed to check pupils. Family History: Unchanged from Admission Social History: Unchanged from Admission Past Medical History: Unchanged from Admission Objective Active Medications: Acetaminophen (Tylenol Tab*) 650 mg PO Q6H PRN PRN Reason: PAIN Last Admin: 05/30/17 19:58 Dose: 650 mg Albuterol/Ipratropium (Duoneb (Albuterol 2.5 Mg/Ipratropium 0.5 Mg)) 1 neb INH Q6H PRN PRN Reason: SOB/WHEEZING Ascorbic Acid (Vitamin C Tab*) 500 mg PO DAILY [facility] Last Admin: 06/02/17 09:27 Dose: Not Given Aspirin (Aspirin Ec Low Dose*) 81 mg PO DAILY [facility] Last Admin: 06/02/17 09:27 Dose: Not Given Atenolol (Tenormin Tab*) 50 mg PO DAILY [facility] Last Admin: 06/02/17 09:25 Dose: 50 mg Atorvastatin Calcium (Lipitor*) 20 mg PO 1700 [facility] Last Admin: 06/01/17 16:52 Dose: 20 mg Cholecalciferol (Vitamin D Tab*) 2,000 units PO DAILY [facility] Last Admin: 06/02/17 09:27 Dose: Not Given Collagenase (Santyl 250 Mg/Gm Oint*) 1 applic TOPICAL .SEE INSTRUCTIONS [facility] Last Admin: 05/31/17 10:00 Dose: 1 applic Diazepam (Valium Tab(*)) 2 mg PO Q8H PRN PRN Reason: muscle spasm Last Admin: 05/31/17 05:21 Dose: 2 mg Docusate Sodium (Colace Cap*) 200 mg PO BEDTIME [facility] Last Admin: 06/01/17 21:26 Dose: Not Given Ferrous Sulfate (Ferrous Sulfate Tab*) 325 mg PO BID [facility] Last Admin: 06/02/17 09:27 Dose: Not Given Heparin Sodium (Porcine) (Heparin Vial(*)) 5,000 units SUBCUT Q8HR [facility] Ceftriaxone Sodium 1 gm/ (Sodium Chloride) 50 mls @ 200 mls/hr IVPB Q24H [facility] Last Admin: 06/01/17 16:52 Dose: 200 mls/hr Vancomycin HCl 1,000 mg/ (Sodium Chloride) 250 mls @ 166.667 mls/hr IVPB Q12H [facility] Last Admin: 06/02/17 10:51 Dose: 166.667 mls/hr Metronidazole/Sodium Chloride (Flagyl 500 Mg Ivpb*) 500 mg in 100 mls @ 100 mls /hr IVPB 0400,1200,2000 [facility] Last Admin: 06/02/17 13:30 Dose: 100 mls/hr Lactated Ringer's (Lactated Ringers 1000 Ml Bag*) 1,000 mls @ 125 mls/hr IV PER RATE [facility] Last Admin: 06/02/17 06:04 Dose: 125 mls/hr Morphine Sulfate (Morphine Inj (Syringe)*) 2 mg IV Q2H PRN PRN Reason: PAIN - MODERATE TO SEVERE Last Admin: 05/31/17 22:34 Dose: 2 mg Ondansetron HCl (Zofran Inj*) 4 mg IV Q4H PRN PRN Reason: NAUSEA Last Admin: 05/28/17 13:41 Dose: 4 mg Pharmacy Consult (Vancomycin Per Pharmacy*) 1 note FOLLOW UP . PRN PRN Reason: PER PROTOCOL Senna (Senokot Tab*) 1 tab PO DAILY [facility] Last Admin: 06/02/17 09:27 Dose: Not Given Sertraline HCl (Zoloft*) 100 mg PO DAILY [facility] Last Admin: 06/02/17 09:27 Dose: Not Given Tramadol HCl (Ultram*) 50 mg PO Q6H PRN PRN Reason: PAIN - MILD TO MODERATE Last Admin: 06/01/17 19:04 Dose: 50 mg Vital Signs - 8 hr 06/02/17 06/02/17 06/02/17 07:30 08:09 11:40 Temperature 97.9 F 98.5 F Pulse Rate 77 Respiratory 16 20 Rate Blood Pressure 141/63 (mmHg) O2 Sat by Pulse 100 100 Oximetry 06/02/17 06/02/17 11:41 13:47 Temperature Pulse Rate 68 68 Respiratory 20 20 Rate Blood Pressure 148/51 (mmHg) O2 Sat by Pulse 94 94 Oximetry Oxygen Devices in Use Now: Nasal Cannula Appearance: more drowsy, chronically ill appearing. Eyes: No Scleral Icterus, PERRLA Respiratory: Symmetrical Chest Expansion and Respiratory Effort, - - No wheezing or rhonchi appreciated. somewhat shallow breaths Cardiovascular: NL Sounds; No Murmurs; No JVD, RRR Extremities: No Edema, - - right knee warm, swollen, tender. right foot bandaged. Skin: - Result Diagrams: 06/02/17 08:52 06/02/17 08:52 Additional Lab and Data: Laboratory Results - last 24 hr 06/02/17 06/02/17 08:52 08:52 WBC 11.4 H RBC 4.03 Hgb 11.3 L Hct 35 MCV 87 MCH 28 MCHC 32 RDW 16 H Plt Count 442 MPV 8 Neut % (Auto) 64.6 Lymph % (Auto) 25.2 Schley % (Auto) 9.2 H Eos % (Auto) 0.3 Baso % (Auto) 0.7 Absolute Neuts (auto) 7.4 Absolute Lymphs (auto) 2.9 Absolute Monos (auto) 1.0 H Absolute Eos (auto) 0 Absolute Basos (auto) 0.1 Absolute Nucleated RBC 0.01 Nucleated RBC % 0.1 Sodium 133 Potassium 3.8 Chloride 100 L Carbon Dioxide 30 Anion Gap 3 BUN 11 Creatinine 0.40 L Est GFR ( Amer) 201.8 Est GFR (Non-Af Amer) 156.9 BUN/Creatinine Ratio 27.5 H Glucose 104 H Calcium 8.9 Microbiology and Other Data: Microbiology 05/30/17 04:57 Blood Venous Aerobic Blood Culture - Preliminary No Growth Day 3 05/30/17 04:57 Blood Venous Anaerobic Blood Culture - Preliminary No Growth Day 3 05/30/17 04:57 Blood Venous Aerobic Blood Culture - Preliminary No Growth Day 3 05/30/17 04:57 Blood Venous Anaerobic Blood Culture - Preliminary No Growth Day 3 05/27/17 17:33 Blood Venous Aerobic Blood Culture - Final No Growth Day 5 05/27/17 17:33 Blood Venous Anaerobic Blood Culture - Final MRSA 05/27/17 17:33 Blood Venous Blood MRSA/MSSA (PCR) - Final Mrsa Positive S.aureus Positive 05/27/17 00:00 Urine Urine Culture - Final Escherichia Coli 05/26/17 18:10 Nasal Nasal Screen MRSA (PCR)(EMMY) - Final Mrsa Positive Assess/Plan/Problems-Billing Assessment: 71yo female PMH PAD, recent Right Hip fracture with surgery x2, Depression, Rheumatoid Arthritis, Osteoporosis, and Raynaud's phenomenon who presents with non-displaced distal right femur fracture. Patient also has chronic non-healing wounds of the lower extremities, sacral decubitis and osteomyelitis of the right 5th toe c/b MRSA bacteremia. On vanc/cftx/bactrim. planned OR 06/02. Worsening mental status, right knee swelling will plan arthrocentesis. Clear for OR. - Patient Problems (1) Closed fracture of right distal femur Current Visit: Yes Status: Acute Code(s): S72.401A - UNSP FRACTURE OF LOWER END OF RIGHT FEMUR, INIT FOR CLOS FX SNOMED Code(s): 612249274 Comment: Appreciate Ortho recs. Non-Displaced fracture of distal right femur due to fall. pain control on Morphine IV, Tramadol and Tylenol. continue knee immobilizer. Xray with mild displacment from previous. plan per ortho. (2) Swelling of knee joint, right Current Visit: Yes Status: Acute Code(s): M25.461 - EFFUSION, RIGHT KNEE SNOMED Code(s): 557222013 Comment: will plan arthrocentesis to rule out septic arthritis. (3) MRSA bacteremia Current Visit: Yes Status: Acute Code(s): R78.81 - BACTEREMIA SNOMED Code( s): 07627845171947627 Comment: continue vanc. repeat Bcxs NGTD. f/u ID recs. (4) Osteomyelitis Current Visit: Yes Status: Acute Code(s): M86.9 - OSTEOMYELITIS, UNSPECIFIED SNOMED Code(s): 38317643 Comment: Confirmed on MRI foot. Also probed to bone. Continue Ceftriaxone (day 6) and Flagyl. Now on vanc also given MRSA baceremia. f/u ID recs Appreciate Ortho and IR input, will likely not heal and need amputation, tentatively planned . now with clear progression of necrosis superiorly. (5) Decubitus ulcer Current Visit: Yes Status: Acute Code(s): L89.90 - PRESSURE ULCER OF UNSPECIFIED SITE, UNSPECIFIED STAGE SNOMED Code(s): 478052304 Comment: Appreciate wound care consult. Multiple wounds on both legs, right worse than left with gangrenous 5th toe and probable underlying osteomyelitis. Dressed with Santyl and Vaseline Gauze. Blood cultures positive. ID was consulted. Continue Ceftriaxone and Flagyl and now vancomycin (previously bactrim,keflex). (6) Depression Current Visit: Yes Status: Acute Code(s): F32.9 - MAJOR DEPRESSIVE DISORDER , SINGLE EPISODE, UNSPECIFIED SNOMED Code(s): 77236961 Comment: Zoloft 100mg. (7) HTN (hypertension) Current Visit: Yes Status: Acute Code(s): I10 - ESSENTIAL (PRIMARY) HYPERTENSION SNOMED Code(s): 35937822 Comment: Continue atenolol. stable off Lisinopril (20mg). (8) Osteoporosis Current Visit: Yes Status: Acute Code(s): M81.0 - AGE-RELATED OSTEOPOROSIS W /O CURRENT PATHOLOGICAL FRACTURE SNOMED Code(s): 17092511 Comment: Patient has a history of osteoporosis with multiple fractures. Consider outpatient DEXA and medication treatment. Continue Vitamin D. (9) Peripheral arterial disease Current Visit: Yes Status: Acute Code(s): I73.9 - PERIPHERAL VASCULAR DISEASE, UNSPECIFIED SNOMED Code(s): 846198809 Comment: Appreciate Interventional Radiaology recs. BRANDIE, imaging upload from [place]. Dr. Josue considering rigtht 5th toe for possible amputation this Patient's most recent hip operation complicated by acute limb ischemia in the setting of hypotension and Norepinephrine use. CTA with Runoff and Arterial Doppler showed B/L SFA occlusion with slight popliteal reconstitution. Given low mobility, unlikely any reprofusion surgery would yield positive results, however, chronic wounds unlikely to heal adequately without adequate arterial flow. (10) Urinary tract infection Current Visit: Yes Status: Acute Comment: Ecoli >100K, pansensitive. continue cftx (day 6) (11) Rheumatoid arthritis Current Visit: Yes Status: Acute Code(s): M06.9 - RHEUMATOID ARTHRITIS, UNSPECIFIED SNOMED Code(s): 75340050 Comment: Patient has elevated inflammatory markers, likely due to infection. Patient has never been on a DMARD to her or her Family's recollection. Would recommend F/U with Rheumatology outpatient. (12) DVT prophylaxis Current Visit: Yes Status: Acute Code(s): VYG4837 - SNOMED Code(s): 939188442 Comment: SCDs and Heparin SubQ US negative for DVT. (13) Full code status Current Visit: Yes Status: Acute Code(s): Z78.9 - OTHER SPECIFIED HEALTH STATUS SNOMED Code(s): 269343353 Status and Disposition: Patient is admitted inpatient, will return to [facility] when medically able. surgeries planned Attending: Angus Diaz
[2017-06-02] MEDS ORDERED: Famotidine IV* 10 MG/ML 2 ML (20 mg) ONE (15:18)
[2017-06-02] MEDS ORDERED: Acetaminophen TAB* 325 MG PO PRN (16:22)
[2017-06-02] MEDS ORDERED: HYDROcodone/ACETAMIN 5-325 MG* 1 TAB PO PRN (16:22)
[2017-06-02] MEDS ORDERED: fentaNYL* 50 MCG/ML 2 ML VIAL (100 MCG VIAL) IV PRN (16:22)
[2017-06-02] MEDS ORDERED: Ketorolac INJ* 30 MG/ML 1 ML VIAL IV PRN (16:22)
[2017-06-02] MEDS ORDERED: Naloxone* 0.4 MG/ML 1 ML VIAL IV PRN (16:22)
[2017-06-02] MEDS ORDERED: Bupivacaine 0.25% SDV* 30 ML ONE (16:25)
[2017-06-02] MEDS ORDERED: Propofol* 10 MG/ML 20 ML BTL IV PUSH ONE (16:36)
[2017-06-02] MEDS ORDERED: Midazolam* 1 MG/ML 2 ML VIAL (2 MG) ONE (16:36)
[2017-06-02] MEDS ORDERED: fentaNYL* 50 MCG/ML 2 ML VIAL (100 MCG VIAL) ONE (16:36)
[2017-06-02] MEDS ORDERED: Lidocaine 2% PF * 5 ML VIAL ONE (16:36)
[2017-06-02] MEDS ORDERED: Ketorolac INJ* 30 MG/ML 1 ML VIAL ONE (17:55)
[2017-06-02] MEDS: Atorvastatin* 20 MG TAB PO SCH (17:58)
[2017-06-02] MEDS: cefTRIAXone(*) 1 GM in NS 0.9% 50 ML* 50 ML IVPB SCH (17:58)
[2017-06-02] MEDS: Docusate CAP* 100 MG PO SCH (20:36)
[2017-06-02] MEDS: Diazepam TAB(NF) 2 MG TAB - use 2.5 of 5 mg tab autosub PO PRN (20:36)
[2017-06-02] MEDS ORDERED: oxyCODONE/Acetamin 5/325 MG* TAB ONE (23:46)
[2017-06-03] MEDS: oxyCODONE TAB* 5 MG TAB PO PRN ×4 (00:01→19:29)
[2017-06-03] MEDS: metroNIDAZOLE IV 500 MG/100ML* 500 MG/100 ML BAG IVPB SCH ×3 (04:12→19:30)
[2017-06-03] MEDS: Heparin VIAL(*) 5000 UNITS/ML VIAL (FIVE THOUSAND) SUBCUT SCH ×3 (06:02→22:54)
[2017-06-03 06:06] LABS: ABS Basophils 0.1 10^3/ul (0-0.2); ABS Eosinophils 0.1 10^3/ul (0-0.6); ABS Lymphocytes 2.2 10^3/ul (1.0-4.8); ABS Monocytes 0.9 10^3/ul (0-0.8); ABS Neutrophils 6.6 10^3/ul (1.5-7.7); ABS Nucleated RBC 0 10^3/ul; Eosinophil % 0.7 % (0-6); Hematocrit 35 % (35-47); Hemoglobin 11.3 g/dl (12.0-16.0); Lymphocyte % 22.7 % (25-47); Mean Corpuscular HGB Conc 33 g/dl (31-36); Mean Corpuscular Hemoglobin 28 pg (27-31); Mean Corpuscular Volume 87 fL (80-97); Mean Platelet Volume 8 um3 (7.4-10.4); Nucleated Red Blood Cells % 0; Platelet Count 484 10^3/ul (150-450); Red Blood Count 3.98 10^6/ul (4.0-5.4); Red Cell Distribution Width 17 % (10.5-15); White Blood Count 9.9 10^3/ul (3.5-10.8)
[2017-06-03 06:24] LABS: EGFR Non-African American 148.3 (>60)
--- NOTE | 2017-06-03 08:56 | PN ---
Progress Note - Progress Note Date of Service: 06/03/17 SOAP: Subjective: POD #1 Right foot 5th toe amputation, right knee aspiration. Pt c/o pain in leg , no pain in feet. Denies CP/SOB. Objective: Vitals: Temp Pulse Resp BP Pulse Ox 97.8 F 73 16 134/54 98 06/03/17 07:37 06/03/17 07:37 06/03/17 07:37 06/03/17 07:37 06/03/17 07:37 Gen: Alert, oriented x2, confused to date. NAD at rest RLE: Wound to lat distal foot with no erythema or purulent d/c. No further skin breakdown to foot since yesterday. Sensation decreased, thready DP pulse Assessment: POD #1 Right 5th toe amputation, right knee aspiration Plan: Knee aspirate with no signs of infection, likely hemarthrosis secondary to femur fx Saline WTD dressing applied to toe wound. Nursing to do daily. No cait wraps to leg as they were causing further skin breakdown, loose kerlix ok Continue knee immoblizer for transfers
--- NOTE | 2017-06-03 09:44 | OP ---
DATE OF OPERATION: 06/02/17 - ROOM #334 DATE OF : 43 SURGEON: Casey Josue MD BLACK OXIDE OPERATOR: RICKY Blunt ANESTHESIOLOGIST: Wander Knowles MD ANESTHESIA: MAC with local anesthesia provided by the surgeon. PRE-OP DIAGNOSES: 1. Right fifth toe gangrene. 2. Right foot deep infection. 3. Right knee effusion and pain. POST-OP DIAGNOSES: 1. Right fifth toe gangrene. 2. Right foot deep infection. 3. Right knee effusion and pain. OPERATIVE PROCEDURE: 1. Right fifth toe amputation at the level of the mid metatarsal. 2. Right foot deep irrigation and debridement including skin, subcutaneous tissue, fascia, and bone. 3. Right knee aspiration. INDICATIONS: Yarelis has a gangrenous right fifth toe. She has severe peripheral vascular disease and severe peripheral neuropathy. She did have positive blood cultures as well. Additionally, today she started to develop pain and swelling in her right knee. We discussed doing a right fifth toe amputation for source control as well as an irrigation and debridement if necessary. Additionally, we discussed doing a right knee aspiration to check for infection in the right knee. This was discussed with her as well as her family and they elected to move forward with the surgery. We did discuss the risks of surgery at length, both on the hospital floor and in the preoperative holding area. This did include the chance that she may lose this limb. IMPLANTS: None. TOURNIQUET: None. SPECIMENS: Toe to Pathology, right knee aspiration fluid for cell count and culture. ESTIMATED BLOOD LOSS: Minimal. COMPLICATIONS: None. STATUS: Stable from the operating room to the recovery room and then back to the medical service. DESCRIPTION OF PROCEDURE: The patient was seen in the preoperative holding unit and informed written consent was obtained. The appropriate extremity was marked. The patient was brought to the operating room and carefully positioned on the operating room table. Anesthesia was induced. All bony prominences were padded with great care. A standard prep and drape was performed with Betadine. A surgical safety pause was then conducted in which we confirmed the appropriate patient, extremity, planned procedure, availability of the equipment, continuation of her antibiotics, and DVT prophylaxis. I started by performing an aspiration of the right knee joint through the anterior lateral arthroscopic portal site. This did yield about 30 cc of what appeared to be bloody fluid. This was sent for both cell count with differential as well as culture. Then, we moved our attention to the right foot where I performed a fifth ray digital block with 0.25% plain Marcaine without epinephrine. At this time, I did perform a toe amputation of the gangrenous toe at the level of the MTP joint. After performing this, the toe was sent to Pathology. At this time, the tissue that remained was severely devitalized and malodorous consistent with infection. Therefore, I made an incision along the lateral aspect of the fifth metatarsal and the distal aspect of the fifth metatarsal seemed necrotic. I therefore performed an osteotomy about the usp point of the metatarsal and removed the distal half and that was sent to Pathology as well. There was some purulence distally, which was sharply debrided. This included the skin, subcutaneous tissue, fascia, muscle, and again, the distal part of the metatarsal. This was sharply dissected out with scalpel and scissors. The remaining wound after this thorough irrigation and debridement measured about 5 cm in the length, 2 cm in width, and about 1 cm in depth. At this time, the wound was copiously irrigated. Given her peripheral vascular disease, there was not brisk blood flow, but it did appear to be debrided back to a stable margin. The decision was made to not further debride. At this time, the proximal wound along the shaft of the fifth metatarsal was closed in layers utilizing 3-0 Monocryl and 3-0 nylon. The distal aspect of the wound was left open and packed with a Betadine-soaked sponge, wet-to-dry dressing. A bulky dry sterile dressing was then placed loosely around the foot. The patient was then awakened from the anesthesia and transferred to the recovery room in stable condition. Complications none. Needle and sponge counts correct at the end of the case. ATTESTATION: I attest that I was present, scrubbed and performed the entire procedure myself. POSTOPERATIVE PLAN: Yarelis will get a dressing change tomorrow, then we will continue with wet-to-dry dressing. Hopefully, this wound will turn the corner and start to improve; however, I did discuss with the family afterward that if this is not the case, we may have to perform a proximal amputation including may be a below the knee amputation given her poor vascular status and infected foot. Additionally, we will follow up the results of the knee aspiration and if this does boot turner to be a septic arthritis, we will plan on irrigation and debridement of the knee. [id number]/[facility] #: [id number] MTDD
[2017-06-03] MEDS: Ferrous Sulfate TAB* 325 MG PO SCH (09:51)
[2017-06-03] MEDS: Atenolol TAB* 50 MG PO SCH (09:52)
[2017-06-03] MEDS: Aspirin EC Low Dose* 81 MG TAB.EC PO SCH (09:52)
[2017-06-03] MEDS: Senna TAB PO SCH (09:52)
[2017-06-03] MEDS: Cholecalciferol TAB* 1000 UNITS PO SCH (09:52)
[2017-06-03] MEDS: Ascorbic Acid TAB* 500 MG PO SCH (09:52)
[2017-06-03] MEDS: Sertraline* 100 MG TAB PO SCH (09:52)
[2017-06-03] MEDS: Diazepam TAB(NF) 2 MG TAB - use 2.5 of 5 mg tab autosub PO PRN (09:52)
[2017-06-03] MEDS: Vancomycin(*) 1,000 MG in NS 0.9% 250 ML* 250 ML IVPB SCH ×2 (11:52→22:54)
[2017-06-03] MEDS ORDERED: Sertraline* 25 MG TAB PO SCH (13:12)
--- NOTE | 2017-06-03 13:17 | DCNOTE ---
Subjective Date of Service: 06/03/17 Interval History: Some pain R foot. Family History: Unchanged from Admission Social History: Unchanged from Admission Past Medical History: Unchanged from Admission Objective Active Medications: Acetaminophen (Tylenol Tab*) 650 mg PO Q6H PRN PRN Reason: PAIN Last Admin: 05/30/17 19:58 Dose: 650 mg Albuterol/Ipratropium (Duoneb (Albuterol 2.5 Mg/Ipratropium 0.5 Mg)) 1 neb INH Q6H PRN PRN Reason: SOB/WHEEZING Ascorbic Acid (Vitamin C Tab*) 500 mg PO DAILY [facility] Last Admin: 06/03/17 09:52 Dose: 500 mg Aspirin (Aspirin Ec Low Dose*) 81 mg PO DAILY [facility] Last Admin: 06/03/17 09:52 Dose: 81 mg Atenolol (Tenormin Tab*) 50 mg PO DAILY [facility] Last Admin: 06/03/17 09:52 Dose: 50 mg Atorvastatin Calcium (Lipitor*) 20 mg PO 1700 [facility] Last Admin: 06/02/17 17:58 Dose: Not Given Cholecalciferol (Vitamin D Tab*) 2,000 units PO DAILY [facility] Last Admin: 06/03/17 09:52 Dose: 2,000 units Collagenase (Santyl 250 Mg/Gm Oint*) 1 applic TOPICAL .SEE INSTRUCTIONS [facility] Last Admin: 05/31/17 10:00 Dose: 1 applic Docusate Sodium (Colace Cap*) 200 mg PO BEDTIME [facility] Last Admin: 06/02/17 20:36 Dose: 200 mg Ferrous Sulfate (Ferrous Sulfate Tab*) 325 mg PO BID [facility] Last Admin: 06/03/17 09:51 Dose: 325 mg Heparin Sodium (Porcine) (Heparin Vial(*)) 5,000 units SUBCUT Q8HR [facility] Last Admin: 06/03/17 06:02 Dose: 5,000 units Ceftriaxone Sodium 1 gm/ (Sodium Chloride) 50 mls @ 200 mls/hr IVPB Q24H [facility] Last Admin: 06/02/17 17:58 Dose: Not Given Vancomycin HCl 1,000 mg/ (Sodium Chloride) 250 mls @ 166.667 mls/hr IVPB Q12H [facility] Last Admin: 06/03/17 11:52 Dose: 166.667 mls/hr Metronidazole/Sodium Chloride (Flagyl 500 Mg Ivpb*) 500 mg in 100 mls @ 100 mls /hr IVPB 0400,1200,2000 [facility] Last Admin: 06/03/17 04:12 Dose: 100 mls/hr Lactated Ringer's (Lactated Ringers 1000 Ml Bag*) 1,000 mls @ 125 mls/hr IV PER RATE [facility] Last Admin: 06/03/17 12:16 Dose: 125 mls/hr Ondansetron HCl (Zofran Inj*) 4 mg IV Q4H PRN PRN Reason: NAUSEA Last Admin: 05/28/17 13:41 Dose: 4 mg Oxycodone HCl (Roxycodone Tab*) 2.5 mg PO Q4H PRN PRN Reason: PAIN Last Admin: 06/03/17 06:02 Dose: 2.5 mg Pharmacy Consult (Vancomycin Per Pharmacy*) 1 note FOLLOW UP . PRN PRN Reason: PER PROTOCOL Pharmacy Profile Note (Vancomycin Trough Check) 1 note FOLLOW UP ONCE ONE Stop: 06/04/17 10:31 Senna (Senokot Tab*) 1 tab PO DAILY [facility] Last Admin: 06/03/17 09:52 Dose: 1 tab Sertraline HCl (Zoloft*) 100 mg PO DAILY [facility] Last Admin: 06/03/17 09:52 Dose: 100 mg Vital Signs - 8 hr 06/03/17 06/03/17 06/03/17 06:02 07:37 08:00 Temperature 97.8 F Pulse Rate 73 Respiratory 18 16 16 Rate Blood Pressure 134/54 (mmHg) O2 Sat by Pulse 98 Oximetry 06/03/17 06/03/17 06/03/17 09:45 09:52 11:55 Temperature Pulse Rate Respiratory 18 18 16 Rate Blood Pressure (mmHg) O2 Sat by Pulse 98 Oximetry Oxygen Devices in Use Now: None Appearance: Alert, in a chair. Flat affect. Looks comfortable. Eyes: No Scleral Icterus Extremities: No Edema, No Clubbing, Cyanosis, - Skin: No Nodules or Sclerosis, - - R foot bandaged. Neurological: NL Sensation, - - Passive, sparse speech. She can say her full name. Result Diagrams: 06/03/17 05:28 06/03/17 05:28 Additional Lab and Data: Laboratory Results - last 24 hr 06/02/17 06/02/17 08:52 08:52 WBC 11.4 H RBC 4.03 Hgb 11.3 L Hct 35 MCV 87 MCH 28 MCHC 32 RDW 16 H Plt Count 442 MPV 8 Neut % (Auto) 64.6 Lymph % (Auto) 25.2 Dougherty % (Auto) 9.2 H Eos % (Auto) 0.3 Baso % (Auto) 0.7 Absolute Neuts (auto) 7.4 Absolute Lymphs (auto) 2.9 Absolute Monos (auto) 1.0 H Absolute Eos (auto) 0 Absolute Basos (auto) 0.1 Absolute Nucleated RBC 0.01 Nucleated RBC % 0.1 Sodium 133 Potassium 3.8 Chloride 100 L Carbon Dioxide 30 Anion Gap 3 BUN 11 Creatinine 0.40 L Est GFR ( Amer) 201.8 Est GFR (Non-Af Amer) 156.9 BUN/Creatinine Ratio 27.5 H Glucose 104 H Calcium 8.9 Microbiology and Other Data: Microbiology 05/30/17 04:57 Blood Venous Aerobic Blood Culture - Preliminary No Growth Day 3 05/30/17 04:57 Blood Venous Anaerobic Blood Culture - Preliminary No Growth Day 3 05/30/17 04:57 Blood Venous Aerobic Blood Culture - Preliminary No Growth Day 3 05/30/17 04:57 Blood Venous Anaerobic Blood Culture - Preliminary No Growth Day 3 05/27/17 17:33 Blood Venous Aerobic Blood Culture - Final No Growth Day 5 05/27/17 17:33 Blood Venous Anaerobic Blood Culture - Final MRSA 05/27/17 17:33 Blood Venous Blood MRSA/MSSA (PCR) - Final Mrsa Positive S.aureus Positive 05/27/17 00:00 Urine Urine Culture - Final Escherichia Coli 05/26/17 18:10 Nasal Nasal Screen MRSA (PCR)([facility]) - Final Mrsa Positive Assess/Plan/Problems-Billing Assessment: 71yo female PMH PAD, recent Right Hip fracture with surgery x2, Depression, Rheumatoid Arthritis, Osteoporosis, and Raynaud's phenomenon who presents with non-displaced distal right femur fracture. Patient also has chronic non-healing wounds of the lower extremities, sacral decubitis and osteomyelitis of the right 5th toe c/b MRSA bacteremia. On vanc/cftx/bactrim. planned OR 06/02. Worsening mental status, right knee swelling will plan arthrocentesis. Clear for OR. - Patient Problems (1) MRSA bacteremia Current Visit: Yes Status: Acute Code(s): R78.81 - BACTEREMIA SNOMED Code( s): 07877662308206044 Comment: 7 days vanco at SNF, trough level 06/06. (2) Femoral distal fracture Current Visit: Yes Status: Acute Code(s): S72.409A - UNSP FRACTURE OF LOWER END OF UNSP FEMUR, INIT FOR CLOS FX SNOMED Code(s): 134716437 Comment: with hemarthrosis Status and Disposition: Patient is admitted inpatient, will return to [facility] when medically able. surgeries planned
--- NOTE | 2017-06-03 15:42 | PN ---
Progress Note - Progress Note Date of Service: 06/03/17 Note: Time spent on discharge 50 minutes.
--- NOTE | 2017-06-03 15:42 | PN ---
Subjective Date of Service: 06/03/17 Interval History: Time spent on discharge 50 minutes. Family History: Unchanged from Admission Social History: Unchanged from Admission Past Medical History: Unchanged from Admission Objective Active Medications: Acetaminophen (Tylenol Tab*) 650 mg PO Q6H PRN PRN Reason: PAIN Last Admin: 05/30/17 19:58 Dose: 650 mg Albuterol/Ipratropium (Duoneb (Albuterol 2.5 Mg/Ipratropium 0.5 Mg)) 1 neb INH Q6H PRN PRN Reason: SOB/WHEEZING Ascorbic Acid (Vitamin C Tab*) 500 mg PO DAILY [facility] Last Admin: 06/03/17 09:52 Dose: 500 mg Aspirin (Aspirin Ec Low Dose*) 81 mg PO DAILY [facility] Last Admin: 06/03/17 09:52 Dose: 81 mg Atenolol (Tenormin Tab*) 50 mg PO DAILY [facility] Last Admin: 06/03/17 09:52 Dose: 50 mg Atorvastatin Calcium (Lipitor*) 20 mg PO 1700 [facility] Last Admin: 06/02/17 17:58 Dose: Not Given Cholecalciferol (Vitamin D Tab*) 2,000 units PO DAILY [facility] Last Admin: 06/03/17 09:52 Dose: 2,000 units Collagenase (Santyl 250 Mg/Gm Oint*) 1 applic TOPICAL .SEE INSTRUCTIONS [facility] Last Admin: 05/31/17 10:00 Dose: 1 applic Docusate Sodium (Colace Cap*) 200 mg PO BEDTIME [facility] Last Admin: 06/02/17 20:36 Dose: 200 mg Ferrous Sulfate (Ferrous Sulfate Tab*) 325 mg PO DAILY [facility] Heparin Sodium (Porcine) (Heparin Vial(*)) 5,000 units SUBCUT Q8HR [facility] Last Admin: 06/03/17 15:08 Dose: 5,000 units Ceftriaxone Sodium 1 gm/ (Sodium Chloride) 50 mls @ 200 mls/hr IVPB Q24H [facility] Last Admin: 06/02/17 17:58 Dose: Not Given Vancomycin HCl 1,000 mg/ (Sodium Chloride) 250 mls @ 166.667 mls/hr IVPB Q12H [facility] Last Admin: 06/03/17 11:52 Dose: 166.667 mls/hr Metronidazole/Sodium Chloride (Flagyl 500 Mg Ivpb*) 500 mg in 100 mls @ 100 mls /hr IVPB 0400,1200,2000 [facility] Last Admin: 06/03/17 15:07 Dose: 100 mls/hr Ondansetron HCl (Zofran Inj*) 4 mg IV Q4H PRN PRN Reason: NAUSEA Last Admin: 05/28/17 13:41 Dose: 4 mg Oxycodone HCl (Roxycodone Tab*) 2.5 mg PO Q4H PRN PRN Reason: PAIN Last Admin: 06/03/17 13:07 Dose: 2.5 mg Pharmacy Consult (Vancomycin Per Pharmacy*) 1 note FOLLOW UP . PRN PRN Reason: PER PROTOCOL Pharmacy Profile Note (Vancomycin Trough Check) 1 note FOLLOW UP ONCE ONE Stop: 06/04/17 10:31 Senna (Senokot Tab*) 1 tab PO DAILY [facility] Last Admin: 06/03/17 09:52 Dose: 1 tab Sertraline HCl (Zoloft*) 75 mg PO DAILY [facility] Vital Signs - 8 hr 06/03/17 06/03/17 06/03/17 08:00 09:45 09:52 Pulse Rate Respiratory 16 18 18 Rate Blood Pressure (mmHg) O2 Sat by Pulse 98 Oximetry 06/03/17 06/03/17 06/03/17 11:55 12:25 13:07 Pulse Rate 65 Respiratory 16 15 16 Rate Blood Pressure 147/65 (mmHg) O2 Sat by Pulse Oximetry Oxygen Devices in Use Now: None Result Diagrams: 06/03/17 05:28 06/03/17 05:28 Additional Lab and Data: Laboratory Results - last 24 hr 06/02/17 06/02/17 08:52 08:52 WBC 11.4 H RBC 4.03 Hgb 11.3 L Hct 35 MCV 87 MCH 28 MCHC 32 RDW 16 H Plt Count 442 MPV 8 Neut % (Auto) 64.6 Lymph % (Auto) 25.2 [place] % (Auto) 9.2 H Eos % (Auto) 0.3 Baso % (Auto) 0.7 Absolute Neuts (auto) 7.4 Absolute Lymphs (auto) 2.9 Absolute Monos (auto) 1.0 H Absolute Eos (auto) 0 Absolute Basos (auto) 0.1 Absolute Nucleated RBC 0.01 Nucleated RBC % 0.1 Sodium 133 Potassium 3.8 Chloride 100 L Carbon Dioxide 30 Anion Gap 3 BUN 11 Creatinine 0.40 L Est GFR ( Amer) 201.8 Est GFR (Non-Af Amer) 156.9 BUN/Creatinine Ratio 27.5 H Glucose 104 H Calcium 8.9 Microbiology and Other Data: Microbiology 05/30/17 04:57 Blood Venous Aerobic Blood Culture - Preliminary No Growth Day 3 05/30/17 04:57 Blood Venous Anaerobic Blood Culture - Preliminary No Growth Day 3 05/30/17 04:57 Blood Venous Aerobic Blood Culture - Preliminary No Growth Day 3 05/30/17 04:57 Blood Venous Anaerobic Blood Culture - Preliminary No Growth Day 3 05/27/17 17:33 Blood Venous Aerobic Blood Culture - Final No Growth Day 5 05/27/17 17:33 Blood Venous Anaerobic Blood Culture - Final MRSA 05/27/17 17:33 Blood Venous Blood MRSA/MSSA (PCR) - Final Mrsa Positive S.aureus Positive 05/27/17 00:00 Urine Urine Culture - Final Escherichia Coli 05/26/17 18:10 Nasal Nasal Screen MRSA (PCR)(EMMY) - Final Mrsa Positive Assess/Plan/Problems-Billing Assessment: 71yo female PMH PAD, recent Right Hip fracture with surgery x2, Depression, Rheumatoid Arthritis, Osteoporosis, and Raynaud's phenomenon who presents with non-displaced distal right femur fracture. Patient also has chronic non-healing wounds of the lower extremities, sacral decubitis and osteomyelitis of the right 5th toe c/b MRSA bacteremia. On vanc/cftx/bactrim. planned OR 06/02. Worsening mental status, right knee swelling will plan arthrocentesis. Clear for OR. - Patient Problems (1) MRSA bacteremia Current Visit: Yes Status: Acute Code(s): R78.81 - BACTEREMIA SNOMED Code( s): [id number] Comment: continue vanc. repeat Bcxs NGTD. f/u ID recs. Status and Disposition: Patient is admitted inpatient, will return to [facility] when medically able. surgeries planned
[2017-06-03] MEDS: Atorvastatin* 20 MG TAB PO SCH (17:06)
[2017-06-03] MEDS: cefTRIAXone(*) 1 GM in NS 0.9% 50 ML* 50 ML IVPB SCH (17:07)
[2017-06-03] MEDS: Docusate CAP* 100 MG PO SCH (19:29)
[2017-06-04] MEDS: oxyCODONE TAB* 5 MG TAB PO PRN ×2 (02:13→06:28)
[2017-06-04] MEDS: metroNIDAZOLE IV 500 MG/100ML* 500 MG/100 ML BAG IVPB SCH (04:22)
[2017-06-04 05:46] LABS: ABS Basophils 0.1 10^3/ul (0-0.2); ABS Eosinophils 0.1 10^3/ul (0-0.6); ABS Lymphocytes 2.7 10^3/ul (1.0-4.8); ABS Neutrophils 7.3 10^3/ul (1.5-7.7); ABS Nucleated RBC 0 10^3/ul; Eosinophil % 0.6 % (0-6); Hematocrit 34 % (35-47); Hemoglobin 10.9 g/dl (12.0-16.0); Mean Corpuscular HGB Conc 33 g/dl (31-36); Mean Corpuscular Hemoglobin 28 pg (27-31); Mean Corpuscular Volume 86 fL (80-97); Mean Platelet Volume 8 um3 (7.4-10.4); Nucleated Red Blood Cells % 0.1; Platelet Count 526 10^3/ul (150-450); Red Blood Count 3.89 10^6/ul (4.0-5.4); Red Cell Distribution Width 16 % (10.5-15); White Blood Count 11.1 10^3/ul (3.5-10.8)
[2017-06-04 05:57] LABS: EGFR Non-African American 161.6 (>60)
[2017-06-04] MEDS: Heparin VIAL(*) 5000 UNITS/ML VIAL (FIVE THOUSAND) SUBCUT SCH (06:28)
[2017-06-04 08:15] VITALS: BP 152/67
[2017-06-04] MEDS: Aspirin EC Low Dose* 81 MG TAB.EC PO SCH (08:50)
[2017-06-04] MEDS: Senna TAB PO SCH (08:50)
[2017-06-04] MEDS: Atenolol TAB* 50 MG PO SCH (08:50)
[2017-06-04] MEDS: Ascorbic Acid TAB* 500 MG PO SCH (08:50)
[2017-06-04] MEDS: Cholecalciferol TAB* 1000 UNITS PO SCH (08:50)
[2017-06-04] MEDS ORDERED: Ferrous Sulfate TAB* 325 MG PO SCH (09:00)
[2017-06-04] MEDS ORDERED: Vancomycin Trough Check NOTE FOLLOW UP ONE (10:30)
--- NOTE | 2017-06-06 21:55 | TRS ---
DISCHARGE SUMMARY: DATE OF ADMISSION: 05/26/17. DATE OF DISCHARGE: 06/04/17. HOSPITAL COURSE: This 71-year-old woman presented with right femoral distal fracture. She also had hemarthrosis in that knee. She was found to have MRSA bacteremia most likely related to osteomyelitis of the right fifth toe. On 06/02/17, she had amputation of the right fifth toe at the level of the mid metatarsal and right knee aspiration. She will receive vancomycin 1 g IV every 12 hours for 7 days at the long-term. She will have a vancomycin trough on 06/06/17. She needs a right knee immobilizer for transfers. She needs wound care as per the orthopedic surgeon. DISCHARGE DIAGNOSES: 1. MRSA bacteremia 2. Distal R femoral fracture with hemarthrosis 3. Osteomyelitis R 5th toe, s/p amputation 4. Sacral decubitus DISCHARGE MEDICATIONS: 1. Acetaminophen 650 mg p.o. every 6 hours p.r.n. 2. Albuterol/ipratropium unit dose every 6 hours by nebulizer p.r.n. 3. Atorvastatin 20 mg at 5 p.m. 4. Collagenase topically per wound care instructions. 5. Oxycodone 2.5 mg every 4 hours p.r.n. 6. Senna 1 every day. 7. Sertraline 75 mg daily. 8. Docusate 200 mg h.s. 9. Vitamin D3, 2000 units daily. 10. Atenolol 50 mg daily. 11. Aspirin 81 mg daily. 12. Ferrous sulfate 325 mg once daily. [id number]/[facility] #: [id number] MTDD
== END 2017-06-04 10:11 | DRG 475 ==
LOC: ED 10:06 → SSU 13:02
PROVIDERS: ADMIT Hospitalist; ATTEND Internal Medicine
PROC: 0S9C3ZX Drainage of Right Knee Joint, Percutaneous Approach, Diagnostic (ICD-10-PCS; 2017-06-02)
PROC: 0Y6M0Z8 Detachment at Right Foot, Complete 5th Ray, Open Approach (ICD-10-PCS; principal; 2017-06-02 14:30)
DX: I73.01 Raynaud's syndrome with gangrene (principal); L89.159 Pressure ulcer of sacral region, unspecified stage; M86.171 Other acute osteomyelitis, right ankle and foot; G62.9 Polyneuropathy, unspecified; M97.01XA Periprosthetic fracture around internal prosthetic right hip joint, initial encounter; B95.62 Methicillin resistant Staphylococcus aureus infection as the cause of diseases classified elsewhere; I70.261 Atherosclerosis of native arteries of extremities with gangrene, right leg; N39.0 Urinary tract infection, site not specified; L89.899 Pressure ulcer of other site, unspecified stage; W06.XXXA Fall from bed, initial encounter; Y92.122 Bedroom in nursing home as the place of occurrence of the external cause; F32.9 Major depressive disorder, single episode, unspecified; I10 Essential (primary) hypertension; M81.0 Age-related osteoporosis without current pathological fracture; B96.20 Unspecified Escherichia coli [E. coli] as the cause of diseases classified elsewhere; M06.9 Rheumatoid arthritis, unspecified; M25.561 Pain in right knee; I73.89 Other specified peripheral vascular diseases; M25.461 Effusion, right knee; M40.209 Unspecified kyphosis, site unspecified; Z79.1 Long term (current) use of non-steroidal anti-inflammatories (NSAID); Z79.82 Long term (current) use of aspirin; Z79.899 Other long term (current) drug therapy; Z82.49 Family history of ischemic heart disease and other diseases of the circulatory system; Z80.3 Family history of malignant neoplasm of breast; Z82.5 Family history of asthma and other chronic lower respiratory diseases
CPT/HCPCS: 36415; 71010; 72170; 80048; 80053; 80061; 80202; 81003; 81015; 82565; 83036; 83735; 84443; 84520; 85025; 85610; 85652; 85730; 86140; 87040; 87070; 87077; 87086; 87150; 87186; 87205; 87640; 87641; 88305; 88311; 89051; 93005; 93922; 94760; 99282; A9270-GY; J0696; J1644; J1885; J2250; J2270; J2405; J2704; J3010; J3370; J3475; J3490